=== PATIENT | male | born 1945 ===

== ENCOUNTER 2020-07-14 11:48 | Outpatient (REF) | payer MEDICARE, MEDICAID, SELFPAY | END 2020-07-14 11:49 | disposition home or self-care (01) | LOC: HO.WFDLDS 11:48 | PROVIDERS: Visit Provider Internal Medicine | DX: Z20.828 Contact with and (suspected) exposure to other viral communicable diseases (principal) | CPT/HCPCS: 87635 ==

== ENCOUNTER 2020-08-05 11:53 | Outpatient (REF) | payer MEDICARE, SELFPAY | END 2020-08-05 11:54 | disposition home or self-care (01) | LOC: HO.WFDLDS 11:53 | PROVIDERS: Visit Provider Internal Medicine | DX: Z20.828 Contact with and (suspected) exposure to other viral communicable diseases (principal) | CPT/HCPCS: U0003 ==

== ENCOUNTER 2020-09-03 13:31 | Outpatient (REF) | payer MEDICARE, SELFPAY ==
[2020-09-03 14:38] LABS: Creatinine Urine 201.47 mg/dL; Microalbum/Creatinine Ratio Ur 24.8 ug/mg cr
== END 2020-09-03 13:32 | disposition home or self-care (01) ==
LOC: HO.LNP 13:31
PROVIDERS: Visit Provider Family Medicine
DX: E11.9 Type 2 diabetes mellitus without complications (principal); I10 Essential (primary) hypertension
CPT/HCPCS: 82043

== ENCOUNTER 2020-10-23 10:30 | Outpatient (REF) | payer MEDICARE, SELFPAY | END 2020-10-23 10:31 | disposition home or self-care (01) | LOC: HO.WFDLDS 10:30 | PROVIDERS: Visit Provider Internal Medicine | DX: Z20.822 Contact with and (suspected) exposure to COVID-19 (principal) | CPT/HCPCS: 36415; C9803; U0003 ==

== ENCOUNTER 2020-11-05 11:40 | Outpatient (REF) | payer MEDICARE, SELFPAY | END 2020-11-05 11:41 | disposition home or self-care (01) | LOC: HO.WFDLDS 11:40 | PROVIDERS: PCP Family Medicine; Visit Provider Internal Medicine | DX: Z20.828 Contact with and (suspected) exposure to other viral communicable diseases (principal) | CPT/HCPCS: 36415; C9803; U0003; U0005 ==

== ENCOUNTER 2020-12-03 14:03 | Outpatient (REF) | payer MEDICARE, SELFPAY ==
[2020-12-03 15:34] LABS: Microalbum/Creatinine Ratio Ur 32.1 ug/mg cr
== END 2020-12-03 14:04 | disposition home or self-care (01) ==
LOC: HO.LNP 14:03
PROVIDERS: Visit Provider Family Medicine
DX: I10 Essential (primary) hypertension (principal); E11.9 Type 2 diabetes mellitus without complications
CPT/HCPCS: 82043

== ENCOUNTER 2020-12-09 06:29 | Day surgery (SDC) | payer MEDICARE, SELFPAY ==
[2020-10-17 13:51] VITALS: BMI 31.5
--- NOTE | 2020-10-22 10:31 | HO.ANESPROP2 ---
HPI - Anesthesia Eval Consult details Narrative: 75yo M for Upper Endoscopy and Colonoscopy [facility] Past Medical History Medical History (Updated 10/22/20 @ 10:31 by Laura Lanza) Diabetes mellitus GERD (gastroesophageal reflux disease) History of anemia Hypertension Vitamin D deficiency Surgical History Surgical History (Updated 10/17/20 @ 13:45 by Lynn Upton) Hx of left knee surgery Social History Social History (System 08/20/20 @ 08:04 by Poonam Ga) Smoking Status: Never smoker Meds Allergies Allergy/AdvReac Type Severity Reaction Status Date / Time No Known Allergies Allergy Unverified 08/20/20 08:04 Home Medications Medication Instructions Recorded Confirmed Type amlodipine 5 mg tablet 5 mg PO DAILY 09/03/20 10/17/20 History blood sugar diagnostic #10 ea 09/03/20 History blood-glucose meter #1 ea 09/03/20 History carbamide peroxide 6.5 % ear drops 0 drp OTIC (EARS) 09/03/20 History esomeprazole magnesium 40 mg 40 mg PO QAM 09/03/20 10/17/20 History capsule,delayed release ferrous sulfate 325 mg (65 mg 325 mg PO DAILY 09/03/20 10/17/20 History iron) tablet lancets 28 gauge #100 ea 09/03/20 History lisinopril 2.5 mg tablet 2.5 mg PO DAILY 09/03/20 10/17/20 History multivitamin 1 tab PO DAILY 09/03/20 10/17/20 History polyethylene glycol 3350 17 gram 17 g PO DAILY 09/03/20 History oral powder packet Exam Exam Date and Time: October 22, 2020 1031 Height,Weight and Vital Signs: Height 5 ft 3 in Weight 80.739 kg Pertinent Lab Results Pertinent Lab Results: Laboratory Tests 04/29/20 05/02/20 10:10 12:30 WBC 7.3 Hgb 13.3 L Hct 40.7 L Plt Count 308 Sodium 140 Potassium 3.9 Chloride 104 BUN 13 Creatinine 0.86 Assessment and Plan Assessment Anesthesia Assessment: Chart Reviewed
--- NOTE | 2020-12-08 09:10 | HO.ANESPROP2 ---
Documented by User: Laura Myla 12/08/20 09:10 HPI - Anesthesia Eval Consult details Narrative: 75yo M for Upper Endoscopy and Colonoscopy PMF Active Problems Active Problems: All Active Problems (Updated 12/03/20 @ 11:46 by Navid Fields MD) Essential hypertension (Acute) Diabetes type 2, controlled (Acute) Muscle strain (Acute) GERD (gastroesophageal reflux disease) (Acute) Past Medical History Medical History Diabetes mellitus GERD (gastroesophageal reflux disease) History of anemia Hypertension Vitamin D deficiency Family History Family History Father Colon cancer Mother No problems noted. Brother No problems noted. Brother No problems noted. Sister No problems noted. Sister No problems noted. Son No problems noted. Daughter No problems noted. Surgical History Surgical History Hx of colonoscopy Hx of left knee surgery Social History Social History Are you a primary critical care registered nurse to a significant other at home: No Do you presently have visiting nurse or other home services: No Smoking Status: Never smoker Advance Directives: No Advance Directives Information Provided: No Advance Directives on File: No Recently lost weight without trying: No Meds Allergies Allergy/AdvReac Type Severity Reaction Status Date / Time No Known Allergies Allergy Verified 12/09/20 06:36 Home Medications Medication Instructions Recorded Confirmed Last Taken Type amlodipine 5 mg tablet 5 mg PO DAILY 09/03/20 10/17/20 12/09/20 06:00 History blood sugar diagnostic #10 ea 09/03/20 Unknown History blood-glucose meter #1 ea 09/03/20 Unknown History carbamide peroxide 6.5 % ear drops 0 drp OTIC (EARS) 09/03/20 Unknown History ferrous sulfate 325 mg (65 mg 325 mg PO DAILY 09/03/20 10/17/20 Unknown History iron) tablet lancets 28 gauge #100 ea 09/03/20 Unknown History lisinopril 2.5 mg tablet 2.5 mg PO DAILY 09/03/20 10/17/20 Unknown History multivitamin 1 tab PO DAILY 09/03/20 10/17/20 Unknown History polyethylene glycol 3350 17 gram 17 g PO DAILY 09/03/20 Unknown History oral powder packet Exam Exam Date and Time: December 08, 2020909 Height,Weight and Vital Signs: Height 5 ft 3 in Weight 80.739 kg Assessment and Plan Assessment Anesthesia Assessment: Chart Reviewed Documented by User: Cesar Vasquez 12/09/20 07:37 PMFSH Past Medical History Medical History Diabetes mellitus GERD (gastroesophageal reflux disease) History of anemia Hypertension Vitamin D deficiency Family History Family History Father Colon cancer Mother No problems noted. Brother No problems noted. Brother No problems noted. Sister No problems noted. Sister No problems noted. Son No problems noted. Daughter No problems noted. Surgical History Surgical History Hx of colonoscopy Hx of left knee surgery Social History Social History Are you a primary critical care registered nurse to a significant other at home: No Do you presently have visiting nurse or other home services: No Smoking Status: Never smoker Advance Directives: No Advance Directives Information Provided: No Advance Directives on File: No Recently lost weight without trying: No Meds Allergies Allergy/AdvReac Type Severity Reaction Status Date / Time No Known Allergies Allergy Verified 12/09/20 06:36 Home Medications Medication Instructions Recorded Confirmed Last Taken Type amlodipine 5 mg tablet 5 mg PO DAILY 09/03/20 10/17/20 12/09/20 06:00 History blood sugar diagnostic #10 ea 09/03/20 Unknown History blood-glucose meter #1 ea 09/03/20 Unknown History carbamide peroxide 6.5 % ear drops 0 drp OTIC (EARS) 09/03/20 Unknown History ferrous sulfate 325 mg (65 mg 325 mg PO DAILY 09/03/20 10/17/20 Unknown History iron) tablet lancets 28 gauge #100 ea 09/03/20 Unknown History lisinopril 2.5 mg tablet 2.5 mg PO DAILY 09/03/20 10/17/20 Unknown History multivitamin 1 tab PO DAILY 09/03/20 10/17/20 Unknown History polyethylene glycol 3350 17 gram 17 g PO DAILY 09/03/20 Unknown History oral powder packet Exam Airway Mallampati Class: III TM Dist: >3cm Neck ROM: Full Loose/Missing/Broken Teeth: Yes (Poor dentition) Heart: rrr+[id number] Lungs: cta b/l Assessment and Plan Assessment Anesthesia Assessment: Anesthesia Plan Discussed and Chart Reviewed Final Anesthetic Review NPO: Yes ASA Class: III Final Preanesthetic Review: No Changes in Pt Med Stat, Meds/Allgs Chart Reviewed, Consent Obtained/Reviewed and Anes Risks/Benef Reviewed Patient Risk: Intermediate Procedure Risk: Low Assessment/Block/Sedation in SS: Assess/Block/Sedation-SS Anesthetic Plan Anesthetic Plan: MAC: and Regional Block Disposition: Standard PACU
[2020-12-09 06:52] VITALS: BP 155/84; PULSE 95; RESP 18; TEMP 36.9; O2SAT 98
[2020-12-09 07:04] LABS: Glucose, Whole Blood 111 mg/dL (60-115)
[2020-12-09] MEDS: Lactated Ringers 1,000 ML 100 ML IVCONT (07:10)
--- NOTE | 2020-12-09 07:51 | MHC.SHP ---
Pre-Procedural Eval Section B Chief Complaint: GERD, Hx of Colon Polyps Details of Present Illness: colon cancer screening, Hx of colon polyps, Family hx of colon cancer Chronic GERD with some break through Relevant Social History: None Present Medications: see Short Stay Collaborative assessment Medical History: Significant History (Diabetes, Mild obesity) History of Previous Operations: Relevant previous surgery/procedure and date(s) (colo 5 years ago with polypectomies) Allergies: Allergies Allergy/AdvReac Type Severity Reaction Status Date / Time No Known Allergies Allergy Verified 12/09/20 06:36 Review of Systems Sugical H&P ROS: Negative: Constitution, Cardiovascular and Respiratory and Yes, Specify: Gastrointestinal (GERD with foods, heavy, etc.) and Endocrine (diabetes) Exam Surgical H&P Exam: Normal: HEENT, Normal: Heart, Normal: Lungs, Normal: Extremities, Normal: Abdomen and Normal: Skin Plan Diagnosis/Plan: Unchanged I have reviewed the history and physical and performed a pertinent physical examination on my patient. No changes have occurred unless specified.yes
--- NOTE | 2020-12-09 09:18 | PM.OP ---
Brief Operative Note Date of Service: 12/09/20 Pre-op diagnosis: CHRONIC GERD WITH BREAKTHROUGH SYMPTOMS COLON CANCER SCREENING: PERSONAL HX OF POLYPS, FAMILY HX OF COLON CANCER Post-op diagnosis: other (HX GERD, GASTRITIS, MILD DUODENITIS; MULTIPLE POLYPS, INTERNAL HEMORRHOIDS.) Procedure: EGD WITH BX COLONOSCOPY WITH EXCISIONAL POLYPECTOMIES X3, HSP,EPI INJECTION --3 CC, X1 Implants: NONE Surgeon: Gilma Fuentes MD Anesthesia: MAC (CUFF,FINISHED GOODS PLANNER//MD LUCIE) Estimated blood loss (mL): 10 Pathology: other (GASTRIC, MID TRANSVERSE COLON, DISTAL TRANSVERSE COLON, 7OCM --HEPATIC FLEXURE) Condition: stable Disposition: PACU
[2020-12-09 09:20] VITALS: BP 93/57; PULSE 82; RESP 20; TEMP 36.5; O2SAT 98
[2020-12-09 09:35] VITALS: BP 111/72; PULSE 77; RESP 20; O2SAT 95
[2020-12-09 09:50] VITALS: BP 146/83; PULSE 96; RESP 20; TEMP 36.5; O2SAT 96
--- NOTE | 2020-12-21 14:06 | W.PM.OPN ---
Operative Note Operative Note Date of Service: 12/09/20 Narrative: Pre-op diagnosis: CHRONIC GERD WITH BREAKTHROUGH SYMPTOMS COLON CANCER SCREENING: PERSONAL HX OF POLYPS, FAMILY HX OF COLON CANCER Post-op diagnosis: other (HX GERD, GASTRITIS, MILD DUODENITIS; MULTIPLE POLYPS, INTERNAL HEMORRHOIDS.) Procedure: EGD WITH BX COLONOSCOPY WITH EXCISIONAL POLYPECTOMIES X3, HSP,EPI INJECTION --3 CC, X1 Implants: NONE Surgeon: Gilma Fuentes MD Anesthesia: MAC (CUFF,LOAD HAUL DUMP OPERATOR//MD LUCIE) FINDINGS: EGD: Videogastroscope was passed through wood treating inspector pharynx--the arytenoid cartilages were boggy with erythema down but not including the cords. Easy entry to the esophagus. The esophageal mucosa was normal. GE junction was clear and distinct. View of the Fundus did show erythema there and part of the Cardia.(I raised ? possible H. pylori,) Duodenal bulb and duodenal villi had prominent capillaries in the villi. Random Gastric biopsies were taken. Scope was removed without incident. COLO: PHILL: Prostate was mildly enlarged, no focal nodules appreciated. Adult slim scope was introduced without difficulty. It was advanced through sigmoid, descending to the distal Transverse colon. Small polyp identified in dTC was removed excisionally. (Hyperplastic) Another polyps was encountered in Transverse colon removed excisionally(TA). Scope was navigated into the ascending colon and then the cecum. PREP was okay--there was residual turbid fluid but no problems with suctioning. When withdrawing through the Hepatic Flexure a .5cm polyp was removed--Epinephering injection--3cc; then hot snare polpectomy and retrieval thru the scope. Additional polyp @ 70cm was removed excisionally with cold bx forceps. (All 3 of those polyps were tubular adenomas.) ARV was clear. Estimated blood loss (mL): 10 Pathology: other (GASTRIC bx did demonstrated H. pylori gastritis., MID TRANSVERSE COLON, DISTAL TRANSVERSE COLON, 7OCM --HEPATIC FLEXURE) Condition: stable Disposition: PACU PLAN: With 3 tubular adenomas recall will be 3 years for increased risk for colon cancer screening. The findings of the EGD will be reviewed at the time of the followup visit.
== END 2020-12-09 10:40 | disposition home or self-care (01) ==
PROVIDERS: PCP Family Medicine; Visit Provider Internal Medicine Gastroenterology
PROC: (CPT 45380; principal; 2020-12-09 07:30)
DX: Z12.11 Encounter for screening for malignant neoplasm of colon (principal); Z80.0 Family history of malignant neoplasm of digestive organs; Z86.010 Personal history of colon polyps; D12.3 Benign neoplasm of transverse colon; D12.4 Benign neoplasm of descending colon; K64.8 Other hemorrhoids; K21.9 Gastro-esophageal reflux disease without esophagitis; K29.50 Unspecified chronic gastritis without bleeding; B96.81 Helicobacter pylori [H. pylori] as the cause of diseases classified elsewhere; K29.80 Duodenitis without bleeding; I10 Essential (primary) hypertension; E11.9 Type 2 diabetes mellitus without complications; Z79.84 Long term (current) use of oral hypoglycemic drugs; Z79.899 Other long term (current) drug therapy
CPT/HCPCS: 45380; 45381; 43239; 82947; 88305; 88342; J0171

== ENCOUNTER 2020-12-12 11:21 | Outpatient (REF) | payer MEDICARE, SELFPAY ==
[2020-12-12 11:49] LABS: Glucose Urine UA NEG (NEG); Leukocyte Esterase Urine 1+ (NEG); Nitrite Urine NEG (NEG); Specific Gravity - Urine <= 1.005 (1.005-1.025); Urine Blood TRACE (NEG); Urine Ketones NEG (NEG); Urine Protein NEG (NEG-TRACE)
[2020-12-12 11:52] LABS: Appearance Urine HAZY; Color Urine YELLOW
[2020-12-12 12:02] LABS: Bacteria Urine 1+ /LPF; RBC Urine 0-2 /HPF (0)
== END 2020-12-12 11:22 | disposition home or self-care (01) ==
LOC: HO.LNP 11:21
PROVIDERS: Visit Provider Family Medicine
DX: R30.0 Dysuria (principal)
CPT/HCPCS: 81001; 87086; 87088; 87186

== ENCOUNTER → 2020-12-30 10:10 | Outpatient (BNVA) | payer MEDICARE, SELFPAY | PROVIDERS: PCP Family Medicine; Visit Provider Nurse Practitioner | DX: A04.8 Other specified bacterial intestinal infections (principal); D12.6 Benign neoplasm of colon, unspecified; K21.9 Gastro-esophageal reflux disease without esophagitis | CPT/HCPCS: Q3014 ==

== ENCOUNTER → 2021-02-24 08:46 | Outpatient (BNVA) | payer MEDICARE, SELFPAY | PROVIDERS: Visit Provider Nurse Practitioner | DX: D12.6 Benign neoplasm of colon, unspecified (principal); A04.8 Other specified bacterial intestinal infections; K21.9 Gastro-esophageal reflux disease without esophagitis | CPT/HCPCS: Q3014 ==

== ENCOUNTER 2021-06-05 08:01 | Outpatient (REF) | payer MEDICARE, SELFPAY ==
--- NOTE | ~2021-06-05 | XR_ITS ---
EXAMINATION: XR SHOULDER, LEFT CLINICAL INFORMATION: Left shoulder pain. COMPARISON: None TECHNIQUE: AP external rotation, Grashey, scapular Y, and axillary views of the left shoulder. FINDINGS: There is no evidence of acute fracture or dislocation of the left shoulder. Prominent amorphous calcification is seen about the region of the greater tuberosity/supraspinatus tendon. Glenohumeral joint appears unremarkable. There is some spurring of the acromioclavicular joint. No widening of the coracoclavicular space is noted. XR/XR shoulder LT min 2V IMPRESSION: Calcific tendinitis of the left shoulder.
[2021-06-05 09:18] LABS: Glucose Urine UA NEG (NEG); Leukocyte Esterase Urine NEG (NEG); Nitrite Urine NEG (NEG); Urine Blood NEG (NEG); Urine Ketones NEG (NEG); Urine Protein NEG (NEG-TRACE)
[2021-06-05 09:20] LABS: Appearance Urine CLEAR; Color Urine YELLOW
== END 2021-06-05 08:02 | disposition home or self-care (01) ==
LOC: HO.LAB 08:01
PROVIDERS: Absent Provider Nurse Practitioner; PCP Family Medicine; Visit Provider Family Medicine
DX: M25.512 Pain in left shoulder (principal); R30.0 Dysuria
CPT/HCPCS: 73030; 81003

== ENCOUNTER 2021-06-06 18:24 | Outpatient (REF) | payer MEDICARE, SELFPAY | END 2021-06-06 18:25 | disposition home or self-care (01) | LOC: HO.LNP 18:24 | PROVIDERS: Visit Provider Nurse Practitioner | DX: A04.8 Other specified bacterial intestinal infections (principal) | CPT/HCPCS: 87338 ==

== ENCOUNTER 2021-07-20 08:00 | Outpatient (RCR) | payer MEDICARE, SELFPAY | END 2021-10-19 10:02 | disposition home or self-care (01) | LOC: HO.PTWFD 08:00 | PROVIDERS: Visit Provider Family Medicine | DX: M79.602 Pain in left arm (principal) | CPT/HCPCS: 97110; 97140; 97162; 97535 ==

== ENCOUNTER 2021-10-05 08:18 | Outpatient (REF) | payer MEDICARE, SELFPAY ==
[2021-10-05 11:21] LABS: MANUAL DIFF FLAG NO
[2021-10-05 11:30] LABS: Basophils Percent Auto 0.3 % (0-2); Eosinophils Absolute Auto 0.2 X10*3/uL (0.0-0.4); Eosinophils Percent Auto 3.1 % (0-4); Hematocrit 39.5 % (42.0-52.0); Hemoglobin 12.7 g/dl (14.0-18.0); Imm Gran Abs Auto 0.02 X10*3/uL (0.00-0.03); Imm Gran Pct Auto 0.3 % (0.0-0.4); Lymphocytes Percent Auto 29.7 % (20-40); Mean Corpuscular HGB Conc 32.2 g/dl (31.0-36.0); Mean Corpuscular Volume 93.4 fL (80.0-98.0); Mean Platelet Volume 10.3 fL (9.4-12.4); Monocytes Absolute Auto 0.7 X10*3/uL (0.1-1.2); Monocytes Percent Auto 10.6 % (2-11); Neutrophils Absolute Auto 3.7 x10*3/uL (2.0-8.3); Platelet Count 299 X10*3/uL (160-400); Red Blood Count 4.23 X10*6/uL (4.60-5.80); Red Cell Distribution Width 12.6 % (11.0-16.0); White Blood Count 6.7 X10*3/uL (4.8-10.8)
[2021-10-05 11:37] LABS: Estimated Average Glucose 166 mg/dL; Hemoglobin A1c % 7.4 %
[2021-10-05 11:48] LABS: Anion Gap 11 (12-20); Blood Urea Nitrogen 21 mg/dL (9-16); Calcium 9.5 mg/dL (8.4-10.2); Carbon Dioxide 28 mmol/L (22-29); Chloride 106 mmol/L (96-108); Estimated Glomerular Filt Rate > 60; Glucose Random 132 mg/dL (60-115); Sodium 141 mmol/L (135-145)
== END 2021-10-05 08:19 | disposition home or self-care (01) ==
LOC: HO.WFDLDS 08:18
PROVIDERS: Visit Provider Family Medicine
DX: Z00.00 Encounter for general adult medical examination without abnormal findings (principal); E11.9 Type 2 diabetes mellitus without complications; I10 Essential (primary) hypertension
CPT/HCPCS: 36415; 80048; 83036; 85025

== ENCOUNTER → 2021-11-24 08:09 | Outpatient (BNVA) | payer MEDICARE, SELFPAY | PROVIDERS: PCP Family Medicine; Referring Provider Family Medicine; Visit Provider Nurse Practitioner Family | DX: G47.9 Sleep disorder, unspecified (principal); G47.19 Other hypersomnia; F09 Unspecified mental disorder due to known physiological condition | CPT/HCPCS: 99202 ==

== ENCOUNTER → 2022-01-07 20:38 | Outpatient (REF) | payer OTHER, SELFPAY | LOC: HO.SL 20:38 | PROVIDERS: PCP Family Medicine; Visit Provider Nurse Practitioner Family | DX: Z13.89 Encounter for screening for other disorder (principal) ==

== ENCOUNTER 2022-02-04 10:50 | Outpatient (REF) | payer OTHER, SELFPAY ==
--- NOTE | ~2022-02-04 | XR_ITS ---
EXAMINATION: XR HIP, RIGHT CLINICAL INFORMATION: Right hip pain. COMPARISON: None TECHNIQUE: Two views of the right hip. FINDINGS: Mild right hip degenerative joint changes are seen. There is no acute fracture or dislocation. The right hemipelvis is intact. The soft tissues are unremarkable. XR/XR hip RT min 2V IMPRESSION: Mild right degenerative joint changes most consistent with osteoarthritis. No acute fracture.
== END 2022-02-04 10:51 | disposition home or self-care (01) ==
LOC: HO.XRAY 10:50
PROVIDERS: PCP Family Medicine; Visit Provider Family Medicine
DX: M25.551 Pain in right hip (principal)
CPT/HCPCS: 73502

== ENCOUNTER → 2022-04-04 19:14 | Outpatient (REF) | payer OTHER, SELFPAY | LOC: HO.SL 19:14 | PROVIDERS: Visit Provider Nurse Practitioner Family | DX: G47.10 Hypersomnia, unspecified (principal); G47.9 Sleep disorder, unspecified; R06.83 Snoring | CPT/HCPCS: 95810 ==

== ENCOUNTER 2022-05-05 09:40 | Outpatient (REF) | payer OTHER, SELFPAY ==
[2022-05-05 11:31] LABS: Appearance Urine CLEAR; Color Urine YELLOW; Glucose Urine UA NEG (NEG); Leukocyte Esterase Urine NEG (NEG); Nitrite Urine NEG (NEG); PH 5.5 (5.0-8.0); Urine Blood NEG (NEG); Urine Ketones NEG (NEG); Urine Protein TRACE MG/DL (NEG-TRACE)
[2022-05-05 14:16] LABS: Prostate Specific Antigen Scr 0.87 ng/mL (<0.05-4.0)
[2022-05-05 14:21] LABS: Alanine Aminotransferase 19 U/L (0-40); Albumin Level 4.5 g/dL (3.5-5.0); Alkaline Phosphatase 71 U/L (39-117); Anion Gap 14 (12-20); Aspartate Amino Transferase 13 U/L (5-37); Bilirubin Total 0.5 mg/dL (0.0-1.0); Blood Urea Nitrogen 15 mg/dL (9-16); Calcium 9.2 mg/dL (8.4-10.2); Carbon Dioxide 27 mmol/L (22-29); Chloride 105 mmol/L (96-108); Cholesterol 142 mg/dL; Estimated Glomerular Filt Rate > 60; Glucose Fasting 132 mg/dL (60-99); HDL Cholesterol 37 mg/dL; LDL Cholesterol Calculated 82 mg/dl; Potassium 3.9 mmol/L (3.3-5.1); Sodium 142 mmol/L (135-145); Total Protein 7.3 g/dL (6.5-8.0); Triglycerides 118 mg/dL
[2022-05-05 14:22] LABS: Creatinine Urine 150.82 mg/dL; Microalbum/Creatinine Ratio Ur 44.4 ug/mg cr
== END 2022-05-05 09:41 | disposition home or self-care (01) ==
LOC: HO.WFDLDS 09:40
PROVIDERS: Visit Provider Family Medicine
DX: Z00.00 Encounter for general adult medical examination without abnormal findings (principal); Z12.5 Encounter for screening for malignant neoplasm of prostate; I10 Essential (primary) hypertension
CPT/HCPCS: 36415; 80053; 80061; 81003; 82043; 84153; 84443

== ENCOUNTER → 2022-06-21 18:47 | Outpatient (REF) | payer OTHER, SELFPAY | LOC: HO.SL 18:47 | PROVIDERS: PCP Family Medicine; Visit Provider Nurse Practitioner Family | DX: Z13.89 Encounter for screening for other disorder (principal) ==

== ENCOUNTER → 2022-06-23 14:14 | Outpatient (BNVA) | payer OTHER, SELFPAY | PROVIDERS: PCP Family Medicine; Visit Provider Nurse Practitioner | DX: Z01.818 Encounter for other preprocedural examination (principal) | CPT/HCPCS: 99212 ==

== ENCOUNTER 2022-07-06 13:00 | Outpatient (RCR) | payer OTHER, SELFPAY ==
[2022-06-10 11:24] VITALS: BP 142/78; PULSE 60; O2SAT 96
== END 2022-08-02 12:40 | disposition home or self-care (01) ==
LOC: HO.PTWFD 13:00
PROVIDERS: Visit Provider Family Medicine
DX: R29.898 Other symptoms and signs involving the musculoskeletal system (principal)
CPT/HCPCS: 97110; 97162; 97535

== ENCOUNTER → 2022-07-27 19:22 | Outpatient (REF) | payer OTHER, SELFPAY | LOC: HO.SL 19:22 | PROVIDERS: PCP Family Medicine; Visit Provider Nurse Practitioner Family | DX: G47.9 Sleep disorder, unspecified (principal) | CPT/HCPCS: 95810 ==

== ENCOUNTER 2022-11-24 08:06 | Day surgery (SDC) | payer OTHER, SELFPAY ==
[2022-11-18 14:33] VITALS: BMI 29.7
--- NOTE | 2022-11-24 08:51 | P.CONAN_ITS ---
HPI - Anesthesia Eval Consult details Narrative: 77 yo male patient for Colonoscopy PMF Active Problems Active Problems: All Active Problems (Updated 10/25/22 @ 09:14 by Tong Bolton) Swollen eye (Acute) Ankle fracture, left (Acute) Altered mental status (Acute) Pre-op examination (Acute) Lower extremity weakness (Acute) Tremor (Acute) Screening for prostate cancer (Acute) Screening for colon cancer (Acute) Adult general medical exam (Acute) Right hip pain (Acute) Cognitive dysfunction (Acute) Excessive daytime sleepiness (Acute) Sleep disorder, unspecified (Acute) Sleep apnea (Acute)- never tested Anxiety (Acute) Left arm pain (Acute) Fatigue (Acute) Upper back pain (Acute) H. pylori infection (Acute) Tubular adenoma of colon (Acute) Dysuria (Acute) Essential hypertension (Acute) Diabetes type 2, controlled (Acute) Muscle strain (Acute) GERD (gastroesophageal reflux disease) (Acute) Past Medical History Medical History Diabetes mellitus GERD (gastroesophageal reflux disease) History of anemia Hypertension Vitamin D deficiency Family History Family History Father Colon cancer Brother No problems noted. Brother No problems noted. Sister No problems noted. Sister Liver cancer Son No problems noted. Daughter No problems noted. Family history of problems with anesthesia: No Surgical History Surgical History Hx of colonoscopy Hx of endoscopy Hx of left knee surgery History of Problems with Anesthesia: No Social History Social History Household Members: Spouse Housing: Apartment Are you a primary managed care manager to a significant other at home: No Do you presently have visiting nurse or other home services: No Alcohol intake: never Patient Tobacco Use Status: Never used Tobacco e-Cigarette/Vaping Use: Never Used Second Hand Smoke Exposure: No Use of substances other than those prescribed or required for medical reasons: No Are you DNR?: No Advance Directives: No Advance Directives Information Provided: Yes service: No Current occupational status: retired Current occupational exposures/hazards: No Cognitive needs: No Hearing needs: No Vision needs: No Meds Allergies Allergy/AdvReac Type Severity Reaction Status Date / Time narcotics Allergy Severe memory loss Uncoded 09/06/22 16:03 Home Medications Medication Instructions Recorded Confirmed Last Taken Type blood sugar diagnostic #10 ea 09/03/20 08/04/22 Unknown History blood-glucose meter #1 ea 09/03/20 08/04/22 Unknown History ferrous sulfate 325 mg (65 mg 325 mg PO DAILY 09/03/20 08/04/22 Unknown History iron) tablet lancets 28 gauge #100 ea 09/03/20 08/04/22 Unknown History cyclobenzaprine 10 mg tablet 10 mg PO BID PRN muscle spasm 06/23/22 08/04/22 Unknown History Exam Exam Date and Time: November 24, 2022 0851 Height,Weight and Vital Signs: Height 5 ft 2 in Weight 73.709 kg Vital Signs Temp Pulse Resp BP Pulse Ox O2 Del Method 11/24/22 09:05 98.3 F 84 18 152/78 H 97 Room Air Pertinent Lab Results Pertinent Lab Results: POC 101mg/dL Airway Mallampati Class: II TM Dist: >3cm Neck ROM: Full Loose/Missing/Broken Teeth: Yes (Many missing. Denies broken or loose teeth) Heart: RRR + ? systolic murmur Lungs: CTAB Assessment and Plan Assessment Anesthesia Assessment: Anesthesia Plan Discussed and Chart Reviewed Final Anesthetic Review Family History of Problems with Anesthesia: No History of Problems with Anesthesia: No NPO: Yes ASA Class: III Final Preanesthetic Review: No Changes in Pt Med Stat, Meds/Allgs Chart Reviewed, Consent Obtained/Reviewed and Anes Risks/Benef Reviewed Patient Risk: Intermediate Procedure Risk: Low Assessment/Block/Sedation in SS: Assess/Block/Sedation-SS Anesthetic Plan Anesthetic Plan: MAC: Disposition: Standard PACU
[2022-11-24 09:05] VITALS: BP 152/78; PULSE 84; RESP 18; TEMP 36.8; O2SAT 97
--- NOTE | 2022-11-24 09:47 | P.HPSUR_ITS ---
Pre-Procedural Eval Section A Date of Service: 11/24/22 Section B Chief Complaint: Encounter for screening for malignant neoplasm of Details of Present Illness: FH of cRC --father Relevant Family History (Specify if Yes): Yes Relevant Social History: None Present Medications: see Short Stay Collaborative assessment Medical History: Significant History (Diabetes mellitus GERD (gastroesophageal reflux disease) History of anemia Hypertension Vitamin D deficiency) History of Previous Operations: Relevant previous surgery/procedure and date(s) (Hx of colonoscopy Hx of endoscopy Hx of left knee surgery) Allergies: Allergies Allergy/AdvReac Type Severity Reaction Status Date / Time narcotics Allergy Severe memory loss Uncoded 09/06/22 16:03 Review of Systems Sugical H&P ROS: Negative: Constitution, Cardiovascular, Respiratory, Neuro logical, Psychiatric, Hem-Onc, Allergic/Immunologic, Gastrointestinal, Genitourinary, Musculoskeletal, Integumentary, Endocrine and Eyes/Ears/Nose/Throat Exam Surgical H&P Exam: Normal: HEENT, Normal: Heart, Normal: Lungs, Normal: Extremities, Normal: Abdomen, Normal: Skin and Normal: Neurological Plan Diagnosis/Plan: Unchanged I have reviewed the history and physical and performed a pertinent physical examination on my patient. No changes have occurred unless specified. Time Spent With Patient Time: Total time managing care of this patient today ____ minutes.
--- NOTE | 2022-11-24 09:49 | P.OP_ITS ---
Operative Note Operative Note Date of Service: 11/24/22 Narrative: Operative Information Procedure Description: Colonoscopy Indication: screening, hx of polyps Anesthesia: MAC COLONOSCOPY Instrument: Olympus variable stiffness Adult scope 190L Colonoscopy Monitoring: Vital signs and clinical assessment, continuous EKG monitoring, Pulse oximetry, Carbon Dioxide monitoring and blood pressure monitoring were done throughout the procedure. Colon withdrawal time was 7 minutes. Procedure: The patient was placed in the left lateral decubitis position and pre-procedure medications were administered. After a digital rectal examination of the ano-rectum, the video colonoscope was inserted into the rectum and advanced through the colon to the cecum/TI. The colonoscope was slowly withdrawn in a retrograde panoramic fashion and the colon mucosa was carefully examined including a retroflexed view of the rectum. Findings and interventions are described below. Procedure Difficulty: moderate due to looping Findings: Terminal Ileum- superficially intubated and normal melanosis coli noted, colon also redundant Cecum:normal Ascending Colon: normal Transverse Colon -normal Descending Colon: 10 mm sessile polyp removed with cold snare Sigmoid Colon: mild diverticulosis Rectum: Retroflexion with medium sized internal hemorrhoids, grade I Anorectum - normal Colon preparation: [place] Bowel Preparation Scale Right colon; 1-2 Transverse colon: 2 Left colon; 1-2 (0 = Unprepared colon segment with mucosa not seen due to solid stool that cannot be cleared. 1 = Portion of mucosa of the colon segment seen, but other areas of the colon segment not well seen due to staining, residual stool and/or opaque liquid. 2 = Minor amount of residual staining, small fragments of stool and/or opaque liquid, but mucosa of colon segment seen well. 3 = Entire mucosa of colon segment seen well with no residual staining, small fragments of stool or opaque liquid) Impression and Post Procedure Diagnosis: polyp internal hemorrhoids diverticular disease melanosis coli redundant colon Plan: High fiber diet leaflet Avoid straining at stool, epsom salts and sitz bath, anusol supps or cream Repeat Colonoscopy in 1-2 years due to fair prep or earlier if clinically indicated Above findings were reviewed with the patient and relevant handouts were provided if indicated.
[2022-11-24 10:00] VITALS: BP 128/78; PULSE 93; RESP 16; TEMP 36.4; O2SAT 98
[2022-11-24 10:21] LABS: Glucose, Whole Blood 101 mg/dL (60-115)
[2022-11-24 10:36] VITALS: BP 95/57; PULSE 58; RESP 18; TEMP 36.9; O2SAT 100
[2022-11-24 10:51] VITALS: BP 118/68; PULSE 62; RESP 18; TEMP 36.8; O2SAT 97
[2022-11-24 11:06] VITALS: BP 152/86; PULSE 76; RESP 18; TEMP 37.1; O2SAT 97
== END 2022-11-24 11:59 | disposition home or self-care (01) ==
PROVIDERS: PCP Family Medicine; Visit Provider Internal Medicine Gastroenterology
PROC: 0DJD8ZZ Inspection of Lower Intestinal Tract, Via Natural or Artificial Opening Endoscopic (ICD-10-PCS; CPT 45378; principal; 2022-11-24 09:20)
DX: Z12.11 Encounter for screening for malignant neoplasm of colon (principal); Z86.010 Personal history of colon polyps; Z80.0 Family history of malignant neoplasm of digestive organs; K63.5 Polyp of colon; K63.89 Other specified diseases of intestine; K57.30 Diverticulosis of large intestine without perforation or abscess without bleeding; K64.0 First degree hemorrhoids; D17.5 Benign lipomatous neoplasm of intra-abdominal organs; Q43.8 Other specified congenital malformations of intestine; K21.9 Gastro-esophageal reflux disease without esophagitis; I10 Essential (primary) hypertension; E55.9 Vitamin D deficiency, unspecified; E11.9 Type 2 diabetes mellitus without complications; G47.33 Obstructive sleep apnea (adult) (pediatric); Z79.899 Other long term (current) drug therapy; Z88.8 Allergy status to other drugs, medicaments and biological substances
CPT/HCPCS: 45385; 82947; 88305

== ENCOUNTER → 2022-12-29 08:39 | Outpatient (BNVA) | payer OTHER, SELFPAY | PROVIDERS: PCP Family Medicine; Referring Provider Family Medicine; Visit Provider Nurse Practitioner | DX: D12.6 Benign neoplasm of colon, unspecified (principal) | CPT/HCPCS: 99212 ==

== ENCOUNTER 2023-04-15 09:36 | Outpatient (AMB) | payer OTHER, SELFPAY ==
[2023-04-15 09:40] VITALS: BP 116/64; PULSE 84; RESP 12; TEMP 36.7; O2SAT 98; BMI 30.8
--- NOTE | 2023-04-15 09:40 | A.OFFPC_ITS ---
Vital Signs 04/15/23 09:40 Height 5 ft 2 in Weight 168 lb 8 oz BMI 30.8 BP 116/64 Blood Pressure Location Rt brachial Position Sitting Respiration 12 Pulse 84 Pulse Source Pulse Oximeter Temp 98.1 F Temp Source Temporal Artery Scan Pulse Oximetry (%) 98 Oxygen Delivery Method Room Air Intake Visit Reasons: f/u diabetes and hypertension Online Content Coordinator Required: Yes Online Content Coordinator Name: Imelda () Accompanied by: Self / Same As Patient Allergies Benzodiazepines Allergy (Mild, Verified 04/15/23 09:46) Unknown narcotics Allergy (Severe, Uncoded 12/29/22 08:48) memory loss Tobacco use date assessed: 08/04/22 Fall risk assessment: No Falls in past year Last assessed Fall Risk: 04/15/23 Dental Screening Dental Screen Date: 04/15/23 Did you have a dental visit in the last 12 months?: Yes Did you have a dental problem in the last 6 months where you did not have access to dental care?: No Was dental information given to patient?: Patient has dentist HPI f/u diabetes and hypertension HPI Details 78 y/o male presents to f/u diabetes and hypertension. Last A1c 12/07/22 was 6.1%. A1c today 04/15/23 is 6.8%. He is on metformin 850 mg t.i.d. He had his diabetic eye exam in March. Blood pressure today is 116/64. He is on amlodipine 5mg, lisinopril 2.5mg daily. Pt has sleep apnea and they report he has not used the machine yet. HPI Comments History of Present Illness Details Documentation assistance for Navid Fields MD, was provided by Tong Bolton,? Director Of [employer] on 04/15/2023 10:50 AM EST. Santamaria, Dr. Fields, have read, observed, and verified documentation.? [facility] [place] Medical History Diabetes mellitus GERD (gastroesophageal reflux disease) History of anemia Hypertension Vitamin D deficiency Surgical History Hx of colonoscopy Hx of endoscopy Hx of left knee surgery Family History Father Colon cancer Brother No problems noted. Brother No problems noted. Sister No problems noted. Sister Liver cancer Son No problems noted. Daughter No problems noted. Social History Household Members: Spouse Housing: Apartment Are you a primary customer care assistant to a significant other at home: No Do you presently have visiting nurse or other home services: No Alcohol intake: never Patient Tobacco Use Status: Never used Tobacco e-Cigarette/Vaping Use: Never Used Second Hand Smoke Exposure: No service: No Current occupational status: retired Current occupational exposures/hazards: No Cognitive needs: No Hearing needs: No Vision needs: No Questionnaire Thrive Questionnaire Date Thrive assessed: 12/07/22 SERGEY-7 AMB Questionnaire SERGEY-7 Date SERGEY - 7 assessed: 12/07/22 Source: Developed by Drs. Dionicio Jiang, Pat Whalen, Ashish Eisenberg and colleagues, with an educational duncan from [employer]. Physical exam (Primary Care) Vital Signs: Last Vital Signs Temp 98.1 F 04/15/23 09:40 Pulse 84 04/15/23 09:40 Resp 12 04/15/23 09:40 BP 116/64 04/15/23 09:40 Pulse Ox 98 04/15/23 09:40 Oxygen Delivery Method Room Air 04/15/23 09:40 BMI result Body Mass Index 30.8 Tobacco/Smoking Status: Tobacco use Status Tobacco use date assessed 08/04/22 04/15/23 09:49 Patient Tobacco Use Status Never used Tobacco 04/15/23 09:49 e-Cigarette/Vaping Use Never Used 04/15/23 09:49 Thrive Assessment: Date of Thrive Assessment Date Thrive assessed 12/07/22 04/15/23 09:49 Results AMB Hemoglobin A1c AMB Hemoglobin A1c 6.8 % Last Edit by Mily Yi CMA on 04/15/23 10:11 Results Reviewed Results Reviewed: Laboratory Last Values Hgb A1c (Clinic) 6.8 % (4.0-6.0) H 04/15/23 10:10 Assessment and Plan Assessment & Plan (1) Essential hypertension: Code(s): I10 - Essential (primary) hypertension Plan: Blood pressure is controlled. Goal is less than 140/90 Continue current medication regimen (2) Diabetes type 2, controlled: Code(s): E11.9 - Type 2 diabetes mellitus without complications Plan: A1c increased from 6.1% to 6.8%. Significant increase but still at goal of less than 7% Continue current medication regimen Encouraged diet lower in sugars and starches Encouraged exercise Recent diabetic eye exam showed some retinopathy. Controlling blood pressure and blood sugar. (3) Sleep apnea: Code(s): G47.30 - Sleep apnea, unspecified Plan: Patient's daughter is going to be picking up his CPAP machine Encouraged consistent use (4) Altered mental status: Code(s): R41.82 - Altered mental status, unspecified Plan: Still has not had his neuropsych evaluation scheduled I have again asked the office to work on the status of this referral Orders: Orders AMB Hemoglobin A1c Today Z13.9 - Encounter for screening, unspecified Coding Level of Care Code Est Pt Level 4 (82523) Diagnoses Essential hypertension I10 Diabetes type 2, controlled E11.9 Sleep apnea G47.30 Altered mental status R41.82
== END 2023-04-15 11:15 | disposition home or self-care (01) ==
PROVIDERS: PCP Family Medicine; Visit Provider Family Medicine
DX: I10 Essential (primary) hypertension (principal); E11.9 Type 2 diabetes mellitus without complications; G47.30 Sleep apnea, unspecified; R41.82 Altered mental status, unspecified; Z13.9 Encounter for screening, unspecified
CPT/HCPCS: 83036; 99214

== ENCOUNTER → 2023-05-18 13:03 | Outpatient (REF) | payer OTHER, SELFPAY | LOC: HO.SL 13:03 | PROVIDERS: PCP Family Medicine; Visit Provider Nurse Practitioner Family | DX: G47.30 Sleep apnea, unspecified (principal); G47.9 Sleep disorder, unspecified; G47.19 Other hypersomnia | CPT/HCPCS: 95806 ==

== ENCOUNTER → 2023-05-18 13:11 | Outpatient (BNV) | payer OTHER, SELFPAY | PROVIDERS: PCP Family Medicine; Visit Provider Psychiatry & Neurology Neurology | DX: R06.83 Snoring (principal) | CPT/HCPCS: 95806 ==

== ENCOUNTER 2023-08-05 08:24 | Outpatient (AMB) | payer OTHER, SELFPAY ==
--- NOTE | 2023-08-05 08:45 | A.OFFPC_ITS ---
Vital Signs 08/05/23 08:46 Height 5 ft 2 in Weight 169 lb 8 oz BMI 31.0 BP 154/72 H Blood Pressure Location Lt brachial Position Sitting Respiration 13 Pulse 66 Pulse Source Pulse Oximeter Temp 98.7 F Temp Source Oral Pulse Oximetry (%) 99 Oxygen Delivery Method Room Air Intake Visit Reasons: f/u diabetes and hypertension Intake Note: Patient is here to follow up for diabetes and hypertension. Patient is accompanied by his spouse and daughter. Patient's daughter is requesting a referral for PT, OT and Speech Therapy. Patient's daughter reports he has been having pain in his neck. Patient's daughter would like to know the results of the patient's sleep study. Hr Generalist Required: Yes Hr Generalist Name: Virgen- Patient's daughter Accompanied by: Spouse Allergies Benzodiazepines Allergy (Mild, Verified 08/05/23 08:52) Unknown narcotics Allergy (Severe, Uncoded 08/05/23 08:52) memory loss Tobacco use date assessed: 08/05/23 Fall risk assessment: No Falls in past year Last assessed Fall Risk: 08/05/23 Dental Screening Dental Screen Date: 08/05/23 Did you have a dental visit in the last 12 months?: Yes Did you have a dental problem in the last 6 months where you did not have access to dental care?: No Was dental information given to patient?: Patient has dentist HPI f/u diabetes and hypertension HPI Details 78 y/o male presents to f/u diabetes and hypertension. Diabetic eye exam 06/02/23. No evidence of diabetic retinopathy. Last A1c 04/15/23 6.8%. A1c today 08/05/23 is 6.8%. He is on metformin 850mg t.i.d. Blood pressure today is 154/72. He is on lisinopril 2.5mg and amlodipine 5mg daily. Pt reports neck pain today. They report he is on a waiting list for neuropsych. COUNTS INCLUDE 234 BEDS AT THE [facility] Medical History History of anemia GERD (gastroesophageal reflux disease) Vitamin D deficiency Hypertension Diabetes mellitus Surgical History Hx of endoscopy Hx of colonoscopy Hx of left knee surgery Family History Father Colon cancer Brother No problems noted. Brother No problems noted. Sister No problems noted. Sister Liver cancer Son No problems noted. Daughter No problems noted. Social History Household Members: Spouse Housing: Apartment Are you a primary cattle care worker to a significant other at home: No Do you presently have visiting nurse or other home services: No Alcohol intake: never Patient Tobacco Use Status: Never used Tobacco e-Cigarette/Vaping Use: Never Used Second Hand Smoke Exposure: No service: No Current occupational status: retired Current occupational exposures/hazards: No Cognitive needs: No Hearing needs: No Vision needs: No Questionnaire Thrive Questionnaire Date Thrive assessed: 12/07/22 SERGEY-7 AMB Questionnaire SERGEY-7 Date SERGEY - 7 assessed: 12/07/22 Source: Developed by Drs. Dionicio Jiang, Pat Whalen, Ashish Eisenberg and colleagues, with an educational duncan from [employer]. Review of Systems Const Denies chills, Denies fatigue, Denies fever(s), Denies headache(s) and Denies weakness ENT Denies dizziness and Denies headache(s) Card Denies chest pain, Denies lightheadedness, Denies dyspnea and Denies other (Palpitations) Resp Denies cough, Denies dyspnea, Denies wheezing and Denies other ( shortness of breath) Musc Denies numbness and Denies tingling Neuro Denies dizziness, Denies headache(s), Denies numbness, Denies tingling, Denies paresthesias and Denies weakness Psych Denies anxiety and Denies depression Endo Denies fatigue Aller/Immun Denies wheezing Physical exam (Primary Care) Vital Signs: Last Vital Signs Temp 98.7 F 08/05/23 08:46 Pulse 66 08/05/23 08:46 Resp 13 08/05/23 08:46 BP 154/72 H 08/05/23 08:46 Pulse Ox 99 08/05/23 08:46 Oxygen Delivery Method Room Air 08/05/23 08:46 BMI result Body Mass Index 31.0 Tobacco/Smoking Status: Tobacco use Status Tobacco use date assessed 08/05/23 08/05/23 08:53 Patient Tobacco Use Status Never used Tobacco 11/03/23 08:49 e-Cigarette/Vaping Use Never Used 08/05/23 08:49 Thrive Assessment: Date of Thrive Assessment Date Thrive assessed 12/07/22 08/05/23 08:49 Const General: no acute distress and well developed Nutritional Appearance: well nourished Orientation/consciousness: patient oriented x3 HENMT Head: Yes normocephalic and Yes atraumatic Eyes General: appearance normal, both eyes and all related structures Pupils: Equal, round and reactive pupils present EOM: EOMs intact bilaterally Resp Effort & Inspection: normal respiratory effort Auscultation: clear to auscultation bilaterally Cardio Rate: regular rate Rhythm: regular rhythm Heart sounds: S1 normal heart sound present, S2 normal heart sound present, no gallops, no murmurs and no rubs Neuro General: patient oriented x3 and gait normal Cranial nerves: Yes Equal, round and reactive pupils present Psych Affect: normal affect Results AMB Hemoglobin A1c AMB Hemoglobin A1c 6.8 % Last Edit by Jaja Murray CMA on 08/05/23 09:07 Results Reviewed Results Reviewed: Laboratory Last Values Hgb A1c (Clinic) 6.8 % (4.0-6.0) H 08/05/23 09:01 Assessment and Plan Assessment & Plan (1) Diabetes type 2, controlled: Code(s): E11.9 - Type 2 diabetes mellitus without complications Plan: A1c?6.8%.??Good?control.??Goal?is?less?than?7.0% He?has?been?taking?metformin?850?mg?b.i.d.?and?can?continue?this. Encouraged?diabetic?diet?and?exercise Recent?eye?exam?with?no?diabetic?retinopathy.??Up-to-date. (2) Essential hypertension: Code(s): I10 - Essential (primary) hypertension Plan: Blood?pressures?fluctuate?and?sometimes?rather?high.??Goal?is?less?than?140/90 Will?increase?lisinopril?from?2.5?mg?daily?to?5.0?mg?daily Encouraged?exercise?and?salt/sodium?avoiding (3) Sleep apnea: Code(s): G47.30 - Sleep apnea, unspecified Plan: Reviewed?sleep?study?with?patient. At?home?sleep?study?seems?to?be?negative. Encouraged?them?to?follow-up?with?sleep?medicine?to?review?further. Encouraged?patient?to?sleep?on?his?side (4) Altered mental status: Code(s): R41.82 - Altered mental status, unspecified Plan: Patient's?family?says?that?neuropsych?has?said?that?he?is?on?a?waiting?list?and? should?be?getting?an?appointment?soon Orders: Orders AMB Hemoglobin A1c Today Z13.9 - Encounter for screening, unspecified Comprehensive Met. Panel Today E11.9 - Type 2 diabetes mellitus without complications Microalbumin, Random (w Creat) Today E11.9 - Type 2 diabetes mellitus without complications, I10 - Essential (primary) hypertension Medications: Changed From metformin 850 mg PO TID 90 tabs 0RF E11.9 - Type 2 diabetes mellitus without complications To metformin 850 mg PO BID 90 days 180 tabs 3RF E11.9 - Type 2 diabetes mellitus without complications From lisinopril 2.5 mg PO DAILY 30 tabs 0RF To lisinopril 5 mg PO DAILY 90 tabs 2RF 90 days Coding Level of Care Code Est Pt Level 4 (85725) Diagnoses Diabetes type 2, controlled E11.9 Essential hypertension I10 Sleep apnea G47.30 Altered mental status R41.82
[2023-08-05 08:46] VITALS: BP 154/72; PULSE 66; RESP 13; TEMP 37.1; O2SAT 99; BMI 31.0
== END 2023-08-05 09:59 | disposition home or self-care (01) ==
PROVIDERS: PCP Family Medicine; Visit Provider Family Medicine
DX: E11.9 Type 2 diabetes mellitus without complications (principal); I10 Essential (primary) hypertension; G47.30 Sleep apnea, unspecified; R41.82 Altered mental status, unspecified; Z13.9 Encounter for screening, unspecified
CPT/HCPCS: 83036; 99214

== ENCOUNTER 2023-08-05 09:40 | Outpatient (REF) | payer OTHER, SELFPAY ==
[2023-08-05 12:38] LABS: Creatinine Urine 178.02 mg/dL; Microalbum/Creatinine Ratio Ur 69.6 ug/mg cr (<30)
[2023-08-05 12:52] LABS: Alanine Aminotransferase 17 U/L (0-40); Albumin Level 4.1 g/dL (3.5-5.0); Alkaline Phosphatase 74 U/L (39-117); Anion Gap 13 (12-20); Aspartate Amino Transferase 15 U/L (5-37); Bilirubin Total 0.3 mg/dL (0.0-1.0); Blood Urea Nitrogen 13 mg/dL (9-16); Calcium 8.9 mg/dL (8.4-10.2); Carbon Dioxide 25 mmol/L (22-29); Chloride 106 mmol/L (96-108); Estimated Glomerular Filt Rate > 60; Glucose Random 120 mg/dL (60-115); Potassium 3.8 mmol/L (3.3-5.1); Sodium 140 mmol/L (135-145); Total Protein 7.2 g/dL (6.5-8.0)
== END 2023-08-05 09:41 | disposition home or self-care (01) ==
LOC: HO.WFDLDS 09:40
PROVIDERS: Visit Provider Family Medicine
DX: E11.9 Type 2 diabetes mellitus without complications (principal); I10 Essential (primary) hypertension
CPT/HCPCS: 36415; 80053; 82043; 82570

== ENCOUNTER 2023-11-11 11:05 | Outpatient (AMB) | payer OTHER, SELFPAY ==
[2023-11-11 11:18] VITALS: BP 161/78; PULSE 72; O2SAT 99; BMI 30.7
--- NOTE | 2023-11-11 11:18 | A.OFFPC_ITS ---
Vital Signs 11/11/23 11:18 Height 5 ft 2 in Weight 168 lb BMI 30.7 BP 161/78 H Blood Pressure Location Lt brachial Position Sitting Pulse 72 Pulse Oximetry (%) 99 Oxygen Delivery Method Room Air Intake Visit Reasons: CPE Intake Note: Patient is here for his physical today. Allergies Benzodiazepines Allergy (Mild, Verified 11/11/23 11:19) Unknown narcotics Allergy (Severe, Uncoded 11/11/23 11:19) memory loss Medication List - Last Reconciled 11/11/23 by Navid Fields MD amlodipine 5 mg PO DAILY atorvastatin 10 mg PO DAILY 90 days blood sugar diagnostic (FreeStyle Lite Strips) DX: E11.9, test blood sugar 3 times a day, 90 days blood-glucose meter (FreeStyle Lite Meter kit) DX: E11.9, test blood sugar 3 times a day, duration 999 days cholecalciferol (vitamin D3) (Vitamin D3) 25 mcg PO DAILY 90 days cyclobenzaprine 10 mg PO BID PRN ferrous sulfate 325 mg PO DAILY lancets (FreeStyle Lancets) As directed lisinopril 5 mg PO DAILY 90 days metformin 850 mg PO BID 90 days multivitamin with folic acid 400 mcg (Daily-Joselyn (with folic acid)) 1 tab PO DAILY naproxen 500 mg PO BID PRN 14 days omeprazole 40 mg PO DAILY 90 days sertraline 50 mg PO DAILY 90 days Tobacco use date assessed: 11/11/23 Dental Screening Dental Screen Date: 11/11/23 Did you have a dental visit in the last 12 months?: Yes Did you have a dental problem in the last 6 months where you did not have access to dental care?: No Was dental information given to patient?: Patient has dentist HPI CPE HPI Details 78 y/o male presents for a CPE with f/u labs and health maintenance. No recent CPE-labs to review. Blood pressure today 161/78. He is on lisinopril 5mg, amlodipine 5mg daily. A1c today 11/11/23 is 7.0%. He is on metformin 850mg b.i.d. [facility] Medical History History of anemia GERD (gastroesophageal reflux disease) Vitamin D deficiency Hypertension Diabetes mellitus Surgical History Hx of endoscopy Hx of colonoscopy Hx of left knee surgery Family History Father Colon cancer Brother No problems noted. Brother No problems noted. Sister No problems noted. Sister Liver cancer Son No problems noted. Daughter No problems noted. Social History Household Members: Spouse Housing: Apartment Are you a primary child care specialist to a significant other at home: No Do you presently have visiting nurse or other home services: No Alcohol intake: never Patient Tobacco Use Status: Never used Tobacco e-Cigarette/Vaping Use: Never Used Second Hand Smoke Exposure: No service: No Current occupational status: retired Current occupational exposures/hazards: No Cognitive needs: No Hearing needs: No Vision needs: No Questionnaire PHQ-9 Over the last 2 weeks, how often have you been bothered by any of the following problems? 1. Little interest or pleasure in doing things: several days 2. Feeling down, depressed, or hopeless: more than half the days 3. Trouble falling or staying asleep, or sleeping too much: nearly every day 4. Feeling tired or having little energy: nearly every day 5. Poor appetite or overeating: more than half the days 6. Feeling bad about yourself - or that you are a failure or have let yourself or your family down: not at all 7. Trouble concentrating on things, such as reading the newspaper or watching television: more than half the days 8. Moving or speaking so slowly that other people could have noticed. Or the opposite - being so fidgety or restless that you have been moving around a lot more than usual: more than half the days 9. Thoughts that you would be better off or of hurting yourself in some way: not at all Total score: 15 Depression Screening Interpretation: Positive Depression Screening Done: Yes Source: Developed by Drs. Dionicio Jiang, Pat Whalen, Ashish Eisenberg and colleagues, with an educational duncan from [employer]. Thrive Questionnaire Date Thrive assessed: 11/11/23 I am a: Patient What is your living situation today?: I have a steady place to live Within the past 12 months, did the food you bought not last and you didn't have the money to get more?: Never true Within the past 12 months, did you worry whether your food would run out before you got money to buy more?: Never true Do you have trouble paying for medicines?: No Do you have trouble getting transportation to medical appointments?: No Do you have trouble paying your heating and electricity bill?: No Do you have trouble taking care of your child, family member or friend?: No Do you have trouble with day-to-day activities such as bathing, preparing meals, shopping, managing finances, etc.?: No Are you currently unemployed and looking for a job?: No Are you interested in more education?: No THRIVE Score: 0 SERGEY-7 AMB Questionnaire SERGEY-7 Date SERGEY - 7 assessed: 11/11/23 Feeling nervous, anxious, or on edge: 3 = Nearly every day Not being able to stop or control worryin = Several days Worrying too much about different things: 3 = Nearly every day Trouble relaxin = Nearly every day Being so restless that it is hard to sit still: 2 = More than half the days Becoming easily annoyed or irritable: 3 = Nearly every day Feeling afraid as if something awful might happen: 2 = More than half the days Total SERGEY-7 score (0-4 normal; 5-9 mild; 10-14 moderate; 15-21 severe): 17 Source: Developed by Drs. Dionicio Jiang, Pat Whalen, Ashish Eisenberg and colleagues, with an educational duncan from [employer]. ACT Questionnaire In the past 4 weeks, how much of the time did your asthma keep you from getting as much done at work, school or at home?: None of the time During the past 4 weeks, how often have you had shortness of breath?: Not at all During the past 4 weeks, how often did your asthma symptoms wake you up at night or earlier than usual in the morning?: Not at all During the past 4 weeks, how often have you had to use your rescue inhaler or nebulizer medication?: Not at all Score: 20 Review of Systems Const Denies chills, Denies fatigue, Denies fever(s), Denies headache(s) and Denies weakness Eyes Denies change in vision ENT Denies dizziness, Denies headache(s), Denies hearing loss, Denies nasal congestion, Denies sinus pain, Denies sinus pressure and Denies sore throat Card Denies chest pain, Denies lightheadedness, Denies dyspnea and Denies other (palpitations) Resp Denies cough, Denies dyspnea and Denies wheezing GI Denies abdominal pain, Denies melena, Denies hematochezia, Denies change in bowel habits, Denies dyspepsia and Denies nausea Denies hematuria and Denies dysuria Musc Denies abnormal gait, Denies myalgias, Denies arthralgias, Denies numbness and Denies tingling Skin/Breast Denies rash, Denies unusual bruising and Denies wounds Neuro Denies abnormal gait, Denies dizziness, Denies headache(s), Denies memory loss, Denies numbness, Denies Sensory deficit (Neuro), Denies tingling and Denies weakness Psych Denies anxiety, Denies depression and Denies memory loss Endo Denies cold intolerance, Denies fatigue, Denies heat intolerance, Denies polydipsia and Denies polyuria Justino/Lymph Denies easy bleeding and Denies easy bruising Aller/Immun Denies wheezing Physical exam (Primary Care) Vital Signs: Last Vital Signs Pulse 72 11/11/23 11:18 BP 161/78 H 11/11/23 11:18 Pulse Ox 99 11/11/23 11:18 Oxygen Delivery Method Room Air 11/11/23 11:18 BMI result Body Mass Index 30.7 Tobacco/Smoking Status: Tobacco use Status Tobacco use date assessed 11/11/23 11/11/23 11:22 Patient Tobacco Use Status Never used Tobacco 11/11/23 11:22 e-Cigarette/Vaping Use Never Used 11/11/23 11:22 Depression Screening Interpretation: Positive Thrive Assessment: Date of Thrive Assessment Date Thrive assessed 12/07/22 11/11/23 11:22 Const General: no acute distress, well developed, alert and awake Nutritional Appearance: well nourished Orientation/consciousness: patient oriented x3 HENMT Head: Yes normocephalic and Yes atraumatic Ears: hearing grossly normal bilaterally and TM's normal bilaterally General nose exam: Normal external nose present and Normal nares present Mouth: Normal oral and palatal mucosa present and moist mucous membranes Teeth and gingiva: dentition normal Throat: Yes posterior oropharynx normal Eyes General: appearance normal, both eyes and all related structures Pupils: Equal, round and reactive pupils present and Pupil accommodation reflex normal EOM: EOMs intact bilaterally Neck Neck: Yes normal visual inspection, Yes no lymphadenopathy and Yes trachea midline Thyroid: Thyroid normal Carotids: no bruits Lymphatic: no lymphadenopathy noted Chest Chest palpation & inspection: normal inspection of the chest Resp Effort & Inspection: normal respiratory effort Auscultation: clear to auscultation bilaterally Cardio Rate: regular rate Rhythm: regular rhythm Heart sounds: S1 normal heart sound present, S2 normal heart sound present, no gallops, no murmurs and no rubs Bruits: no abdominal aortic bruits and no carotid bruits GI Palpation (GI): No Abdominal aortic bruit present, Soft to palpation, nontender, No hepatosplenomegaly present and No Rebound tenderness present Auscultation: normal bowel sounds General: Yes no CVA tenderness Back/Spine/Pelvis Back: no CVA tenderness Cervical Spine: cervical ROM normal and No Cervical spine tenderness Thoracic/Lumbar Spine: thoraco-lumbar ROM normal, No pain with thoraco-lumbar ROM, No thoracic spinal tenderness and No lumbar spinal tenderness Skin Lesions: no lesions Rashes: no rashes Trauma: no lacerations or abrasions Wounds: no wounds Nails: normal Neuro General: patient oriented x3 Cranial nerves: Yes Equal, round and reactive pupils present Cognition (Neuro): normal cognition Gait exam (Neuro): Normal gait present Motor exam (neuro): 5/5 motor strength present throughout Sensory Exam: No Sensory deficit (Neuro) Deep tendon reflexes (DTR's): Right patellar reflex intensity grade: 2+ and Left patellar reflex intensity grade: 2+ Extrem General: Yes normal to inspection and No edema Psych Appearance: grossly normal Affect: normal affect Attitude: cooperative Thought process: Normal thought process present Assessment and Plan Assessment & Plan (1) Altered mental status: Code(s): R41.82 - Altered mental status, unspecified Plan: Had?ordered?CT?scan?and?this?has?not?been?done?yet. Reordered?as?CT?head?without?contrast. Will?follow-up?with?patient (2) Dysarthria: Code(s): R47.1 - Dysarthria and anarthria (3) Essential hypertension: Code(s): I10 - Essential (primary) hypertension Plan: Blood?pressure?is?too?high.??Goal?is?less?than?140/90 He?is?on?amlodipine?and?lisinopril. Will?increase?his?lisinopril?to?20?mg?daily. Check?blood?pressures?at?home Call?for?any?problems (4) Diabetes type 2, controlled: Code(s): E11.9 - Type 2 diabetes mellitus without complications Plan: A1c?7.0%. ?This?has?increased?from?prior?check.??Still?fairly?good?control.??Goal?is?7.0?o r?lower Continue?current?medication?regimen Work?at?diet?lower?in?sugars?and?starches (5) Sleep disorder, unspecified: Comment: Snoring, sleep maintenance difficulties, sleep initiation difficulties, REM type sleep behaviors, excessive daytime sleepiness. Code(s): G47.9 - Sleep disorder, unspecified Plan: Has?not?had?sleep?study?and?I?will?renew?his?referral. (6) Screening for prostate cancer: Code(s): Z12.5 - Encounter for screening for malignant neoplasm of prostate Plan: Check?PSA (7) Screening for colon cancer: Code(s): Z12.11 - Encounter for screening for malignant neoplasm of colon Plan: Colonoscopy?last?year?recommended?follow-up?in?1-2?years Follow-up?with?GI?at?[facility]?as?recommended (8) Unsteady gait: Code(s): R26.81 - Unsteadiness on feet Plan: Start?physical?therapy (9) Adult general medical exam: Code(s): Z00.00 - Encounter for general adult medical examination without abnormal findings Plan: 78-year-old?male?presents?for?complete?physical?exam Orders: Orders AMB Hemoglobin A1c Today Z13.9 - Encounter for screening, unspecified Comprehensive [place]rish. Panel Fast Today Z00.00 - Encounter for general adult medical examination without abnormal findings Complete Blood Count Auto Diff Today Z00.00 - Encounter for general adult medical examination without abnormal findings Microalbumin, Random (w Creat) Today I10 - Essential (primary) hypertension Prostate Specific Antigen Scr Today Z12.5 - Encounter for screening for malignant neoplasm of prostate Lipid Panel Today Z00.00 - Encounter for general adult medical examination without abnormal findings UA and rflx microscopic Today Z00.00 - Encounter for general adult medical examination without abnormal findings Vitamin B12 and Folate Today E53.8 - Deficiency of other specified B group vitamins CT head/brain wo IV con Today R41.82 - Altered mental status, unspecified PT Evaluation and Treatment Today R26.81 - Unsteadiness on feet TSH reflex Free T4 Today Z00.00 - Encounter for general adult medical examination without abnormal findings Vitamin D 25-OH Total Today E55.9 - Vitamin D deficiency, unspecified Referrals Speech and Hearing Referral R47.1 - Dysarthria and anarthria Medications: Changed From lisinopril 5 mg PO DAILY 90 days 90 tabs 2RF To lisinopril 20 mg PO DAILY 90 tabs 2RF 90 days Refilled omeprazole 40 mg PO DAILY 90 caps 2RF 90 days Coding Level of Care Code Est Pt Level 4 (20395) Diagnoses Altered mental status R41.82 Dysarthria R47.1 Essential hypertension I10 Diabetes type 2, controlled E11.9 Sleep disorder, unspecified G47.9 Screening for prostate cancer Z12.5 Screening for colon cancer Z12.11 Unsteady gait R26.81 Adult general medical exam Z00.00
== END 2023-11-11 12:40 | disposition home or self-care (01) ==
PROVIDERS: PCP Family Medicine; Visit Provider Family Medicine
DX: R41.82 Altered mental status, unspecified (principal); R47.1 Dysarthria and anarthria; I10 Essential (primary) hypertension; E11.9 Type 2 diabetes mellitus without complications; G47.9 Sleep disorder, unspecified; Z12.5 Encounter for screening for malignant neoplasm of prostate; Z12.11 Encounter for screening for malignant neoplasm of colon; R26.81 Unsteadiness on feet; Z00.00 Encounter for general adult medical examination without abnormal findings
CPT/HCPCS: 99214

== ENCOUNTER 2023-11-14 09:25 | Outpatient (REF) | payer OTHER, SELFPAY ==
[2023-11-14 11:25] LABS: MANUAL DIFF FLAG NO
[2023-11-14 12:22] LABS: Basophils Percent Auto 0.4 % (0-2); Eosinophils Absolute Auto 0.2 X10*3/uL (0.0-0.4); Hematocrit 38.5 % (42.0-52.0); Hemoglobin 12.6 g/dl (14.0-18.0); Imm Gran Abs Auto 0.02 X10*3/uL (0.00-0.03); Imm Gran Pct Auto 0.3 % (0.0-0.4); Lymphocytes Absolute Auto 1.3 X10*3/uL (1.2-4.9); Lymphocytes Percent Auto 17.6 % (20-40); Mean Corpuscular HGB Conc 32.7 g/dl (31.0-36.0); Mean Corpuscular Hemoglobin 29.5 pg (27.0-33.0); Mean Corpuscular Volume 90.2 fL (80.0-98.0); Mean Platelet Volume 9.9 fL (9.4-12.4); Monocytes Absolute Auto 0.7 X10*3/uL (0.1-1.2); Monocytes Percent Auto 9.1 % (2-11); Neutrophils Absolute Auto 5.3 x10*3/uL (2.0-8.3); Neutrophils Percent Auto 70.6 % (45-73); Platelet Count 318 X10*3/uL (160-400); Red Blood Count 4.27 X10*6/uL (4.60-5.80); Red Cell Distribution Width 13.4 % (11.0-16.0); White Blood Count 7.5 X10*3/uL (4.8-10.8)
[2023-11-14 13:00] LABS: Alanine Aminotransferase 15 U/L (0-40); Albumin Level 4.1 g/dL (3.5-5.0); Alkaline Phosphatase 86 U/L (39-117); Anion Gap 13 (12-20); Aspartate Amino Transferase 13 U/L (5-37); Bilirubin Total 0.6 mg/dL (0.0-1.0); Blood Urea Nitrogen 16 mg/dL (9-16); Carbon Dioxide 25 mmol/L (22-29); Chloride 106 mmol/L (96-108); Cholesterol 140 mg/dL (<200); Estimated Glomerular Filt Rate > 60; Glucose Fasting 117 mg/dL (60-99); HDL Cholesterol 44 mg/dL (>40); LDL Cholesterol Calculated 82 mg/dL (<100); Potassium 4.1 mmol/L (3.3-5.1); Sodium 140 mmol/L (135-145); Total Protein 7.3 g/dL (6.5-8.0); Triglycerides 74 mg/dL (<150)
[2023-11-14 13:06] LABS: Vitamin D 25-OH Total 44.4 ng/mL (>30)
[2023-11-14 13:13] LABS: Folate 12.6 ng/mL (> or = 4.0); Prostate Specific Antigen Scr 1.19 ng/mL (<0.05-4.0); Vitamin B12 542 pg/mL (200-900)
[2023-11-14 14:22] LABS: Appearance Urine Clear; Color Urine Yellow; Glucose Urine UA Negative (Negative); Leukocyte Esterase Urine Negative (Negative); Nitrite Urine Negative (Negative); PH 5.5 (5.0-9.0); Urine Blood Negative (Negative); Urine Ketones Negative (Negative); Urine Protein Negative (Neg-Trace)
[2023-11-14 16:02] LABS: Creatinine Urine 101.35 mg/dL; Microalbum/Creatinine Ratio Ur 78.9 ug/mg cr (<30)
== END 2023-11-14 09:26 | disposition home or self-care (01) ==
LOC: HO.WFDLDS 09:25
PROVIDERS: Visit Provider Family Medicine
DX: Z00.00 Encounter for general adult medical examination without abnormal findings (principal); I10 Essential (primary) hypertension; E55.9 Vitamin D deficiency, unspecified; E53.8 Deficiency of other specified B group vitamins; Z12.5 Encounter for screening for malignant neoplasm of prostate
CPT/HCPCS: 36415; 80053; 80061; 81003; 82043; 82306; 82570; 82607; 82746; 84153; 84443; 85025

== ENCOUNTER 2023-12-16 09:16 | Outpatient (AMB) | payer OTHER, SELFPAY ==
[2023-12-16 09:26] VITALS: BP 126/72; PULSE 65; O2SAT 98; BMI 30.5
--- NOTE | 2023-12-16 09:26 | MHC.PC.OV ---
Vital Signs 12/16/23 09:26 Height 5 ft 2 in Weight 167 lb BMI 30.5 BP 126/72 Blood Pressure Location Lt brachial Position Sitting Pulse 65 Pulse Source Pulse Oximeter Pulse Oximetry (%) 98 Oxygen Delivery Method Room Air Intake Visit Reasons: f/u CPE-labs Intake Note: Pt presents to the office today for a follow up CPE- labs. Pt states he is feeling well and denies any concerns at this time. Allergies Benzodiazepines Allergy (Mild, Verified 12/16/23 09:28) Unknown narcotics Allergy (Severe, Uncoded 12/16/23 09:28) memory loss Tobacco use date assessed: 12/16/23 Fall risk assessment: No Falls in past year Last assessed Fall Risk: 12/16/23 Dental Screening Dental Screen Date: 12/16/23 Did you have a dental visit in the last 12 months?: Yes Did you have a dental problem in the last 6 months where you did not have access to dental care?: No Was dental information given to patient?: Patient has dentist HPI f/u CPE-labs HPI Details 78 y/o male presents to f/u diabetes and hypertension. A1c today 12/16/23 is 6.6%. Blood pressure today 126/72. He is on lisinopril 20mg, amlodipine 5mg daily. They note sertraline has been helping with his mood. FORMERLY [facility], [facility] Medical History History of anemia GERD (gastroesophageal reflux disease) Vitamin D deficiency Hypertension Diabetes mellitus Surgical History Hx of endoscopy Hx of colonoscopy Hx of left knee surgery Family History (Updated 12/16/23 @ 09:30 by Kamryn Meléndez MA) Father Colon cancer Brother No problems noted. Brother No problems noted. Sister No problems noted. Sister Liver cancer Son No problems noted. Daughter No problems noted. Social History Household Members: Spouse Housing: Apartment Are you a primary patient care provider to a significant other at home: No Do you presently have visiting nurse or other home services: No Alcohol intake: never Patient Tobacco Use Status: Never used Tobacco e-Cigarette/Vaping Use: Never Used Second Hand Smoke Exposure: No service: No Current occupational status: retired Current occupational exposures/hazards: No Cognitive needs: No Hearing needs: No Vision needs: No Questionnaire PHQ-9 Over the last 2 weeks, how often have you been bothered by any of the following problems? 1. Little interest or pleasure in doing things: several days 2. Feeling down, depressed, or hopeless: more than half the days 3. Trouble falling or staying asleep, or sleeping too much: nearly every day 4. Feeling tired or having little energy: nearly every day 5. Poor appetite or overeating: more than half the days 6. Feeling bad about yourself - or that you are a failure or have let yourself or your family down: not at all 7. Trouble concentrating on things, such as reading the newspaper or watching television: more than half the days 8. Moving or speaking so slowly that other people could have noticed. Or the opposite - being so fidgety or restless that you have been moving around a lot more than usual: more than half the days 9. Thoughts that you would be better off or of hurting yourself in some way: not at all Total score: 15 Depression Screening Interpretation: Positive Depression Screening Done: Yes Source: Developed by Drs. Dionicio Jiang, Pat Whalen, Ashish Eisenberg and colleagues, with an educational duncan from [employer]. Thrive Questionnaire Date Thrive assessed: 11/11/23 I am a: Patient What is your living situation today?: I have a steady place to live Within the past 12 months, did the food you bought not last and you didn't have the money to get more?: Never true Within the past 12 months, did you worry whether your food would run out before you got money to buy more?: Never true Do you have trouble paying for medicines?: No Do you have trouble getting transportation to medical appointments?: No Do you have trouble paying your heating and electricity bill?: No Do you have trouble taking care of your child, family member or friend?: No Do you have trouble with day-to-day activities such as bathing, preparing meals, shopping, managing finances, etc.?: No Are you currently unemployed and looking for a job?: No Are you interested in more education?: No THRIVE Score: 0 AUDIT C Alcohol Use Questionnaire (AUDIT-C) 1. How often do you have a drink containing alcohol?: Never 3. How often do you have six or more drinks on one occasion?: Never Total Score: 0 SERGEY-7 AMB Questionnaire SERGEY-7 Date SERGEY - 7 assessed: 11/11/23 Feeling nervous, anxious, or on edge: 3 = Nearly every day Not being able to stop or control worryin = Several days Worrying too much about different things: 3 = Nearly every day Trouble relaxin = Nearly every day Being so restless that it is hard to sit still: 2 = More than half the days Becoming easily annoyed or irritable: 3 = Nearly every day Feeling afraid as if something awful might happen: 2 = More than half the days Total SERGEY-7 score (0-4 normal; 5-9 mild; 10-14 moderate; 15-21 severe): 17 Source: Developed by Drs. Dionicio Jiang, Pat Whalen, Ashish Eisenberg and colleagues, with an educational duncan from [employer]. Physical exam (Primary Care) Vital Signs: Last Vital Signs Pulse 65 12/16/23 09:26 BP 126/72 12/16/23 09:26 Pulse Ox 98 12/16/23 09:26 Oxygen Delivery Method Room Air 12/16/23 09:26 BMI result Body Mass Index 30.5 Tobacco/Smoking Status: Tobacco use Status Tobacco use date assessed 12/16/23 12/16/23 09:31 Patient Tobacco Use Status Never used Tobacco 12/16/23 09:31 e-Cigarette/Vaping Use Never Used 12/16/23 09:31 PHQ-9: PHQ-9 Score PHQ-9: Total score 15 12/16/23 09:57 Depression Screening Interpretation: Positive Thrive Assessment: Date of Thrive Assessment Date Thrive assessed 11/11/23 12/16/23 09:31 Results AMB Hemoglobin A1c AMB Hemoglobin A1c 6.6 % Last Edit by Kamryn Meléndez MA on 12/16/23 09:49 Results Reviewed Results Reviewed: Laboratory Last Values Hgb A1c (Clinic) 6.6 % (4.0-6.0) H 12/16/23 09:48 Assessment and Plan Assessment & Plan (1) Essential hypertension: Code(s): I10 - Essential (primary) hypertension Plan: Blood?pressure?now?well?controlled.??Goal?is?less?than?140/90 Continue?medication?regimen (2) Diabetes type 2, controlled: Code(s): E11.9 - Type 2 diabetes mellitus without complications Plan: A1c?6.6%.??Good?control.??Goal?is?less?than?7.0% Continue?current?medication?regimen (3) Altered mental status: Code(s): R41.82 - Altered mental status, unspecified Plan: Ongoing?altered?mental?status?though?this?seems?improved?with?increase?in?sertraline. It?appears?that?patient?was?taking?half?a?tablet?daily?and?is?now?taking?a?whole?tablet?(50?mg). Continue?increased?sertraline?dose?and?he?has?an?appointment?for?CT?scan?of?the?head?on?December?. They?can?call?to?schedule?a?telemedicine?appointment?to?review?CT?results?after?the?scan. Orders: Orders AMB Hemoglobin A1c Today E11.9 - Type 2 diabetes mellitus without complications Coding Level of Care Code Est Pt Level 3 (46564) Diagnoses Essential hypertension I10 Diabetes type 2, controlled E11.9 Altered mental status R41.82
== END 2023-12-16 10:18 | disposition home or self-care (01) ==
PROVIDERS: PCP Family Medicine; Visit Provider Family Medicine
DX: I10 Essential (primary) hypertension (principal); E11.9 Type 2 diabetes mellitus without complications; R41.82 Altered mental status, unspecified
CPT/HCPCS: 83036; 99213

== ENCOUNTER 2023-12-28 07:26 | Outpatient (REF) | payer OTHER, SELFPAY ==
--- NOTE | ~2023-12-28 | CT_ITS ---
EXAMINATION: CT HEAD WITHOUT CONTRAST CLINICAL INFORMATION: Altered mental status. COMPARISON: None. TECHNIQUE: Contiguous axial imaging was performed from the skullbase to vertex without intravenous administration of contrast. This CT examination was performed using dose optimization techniques as appropriate, variously including the following: *Automated exposure control *Adjustment of mA and/or kV according to patient size (this includes techniques or standardized protocols for targeted exams where dose is matched to indication/reason for exam; i.e. extremities or head) *Use of iterative reconstruction technique DLP: 815 mGy-cm. FINDINGS: There is no evidence of acute intracranial hemorrhage or territorial infarction. No abnormal mass effect or midline shift is seen. Mata to white matter differentiation is well preserved. No extra-axial fluid collections are identified. Mild to moderate chronic white matter microangiopathy changes noted. There is mild generalized brain parenchymal volume loss with commensurate mild ex vacuo prominence of the ventricles. The osseous structures and soft tissues are normal. The mastoid air cells and visualized portions of the paranasal sinuses are well aerated. CT/CT head/brain wo IV con IMPRESSION: No acute intracranial hemorrhage or territorial infarction. Mild to moderate chronic white matter microangiopathy and mild generalized brain parenchymal volume loss.
== END 2023-12-28 07:27 | disposition home or self-care (01) ==
LOC: HO.CT 07:26
PROVIDERS: PCP Family Medicine; Visit Provider Family Medicine
DX: R41.82 Altered mental status, unspecified (principal)
CPT/HCPCS: 70450

== ENCOUNTER 2024-01-06 12:55 | Outpatient (AMB) | payer OTHER, SELFPAY ==
--- NOTE | 2024-01-06 12:49 | A.OFFPC_ITS ---
Intake Visit Reasons: follow up ct Intake Note: Patient is following up on head CT today. Allergies Benzodiazepines Allergy (Mild, Verified 01/06/24 12:49) Unknown narcotics Allergy (Severe, Uncoded 01/06/24 12:49) memory loss Medication List - Last Reconciled 01/06/24 by Navid Fields MD amlodipine 5 mg PO DAILY atorvastatin 10 mg PO DAILY 90 days blood sugar diagnostic (FreeStyle Lite Strips) DX: E11.9, test blood sugar 3 times a day, 90 days blood-glucose meter (FreeStyle Lite Meter kit) DX: E11.9, test blood sugar 3 t imes a day, duration 999 days cholecalciferol (vitamin D3) (Vitamin D3) 25 mcg PO DAILY 90 days lancets (FreeStyle Lancets) As directed lisinopril 20 mg PO DAILY 90 days metformin 850 mg PO BID 90 days multivitamin with folic acid 400 mcg (Daily-Joselyn (with folic acid)) 1 tab PO DAILY naproxen 500 mg PO BID PRN 14 days omeprazole 40 mg PO DAILY 90 days sertraline 50 mg PO DAILY 90 days Tobacco use date assessed: 01/06/24 Fall risk assessment: No Falls in past year Last assessed Fall Risk: 01/06/24 Dental Screening Dental Screen Date: 12/16/[address] HPI Details Telemedicine?appointment?to?follow-up?altered?mental?status Patient?notes?his?mental?status?has?already?improved?since?increasing?sertraline Head?CT?did?not?show?a ny?acute?issues?but?did?show?chronic?microangiopathy?and?some?volume?loss. Otherwise?feels?well.??No?new?complaints PENDING SALE TO [facility] Medical History History of anemia GERD (gastroesophageal reflux disease) Vitamin D deficiency Hypertension Diabetes mellitus Surgical History Hx of endoscopy Hx of colonoscopy Hx of left knee surgery Family History Father Colon cancer Brother No problems noted. Brother No problems noted. Sister No problems noted. Sister Liver cancer Son No problems noted. Daughter No problems noted. Social History Household Members: Spouse Housing: Apartment Are you a primary aged or disabled care worker to a significant other at home: No Do you presently have visiting nurse or other home services: No Alcohol intake: never Patient Tobacco Use Status: Never used Tobacco e-Cigarette/Vaping Use: Never Used Second Hand Smoke Exposure: No service: No Current occupational status: retired Current occupational exposures/hazards: No Cognitive needs: No Hearing needs: No Vision needs: No Questionnaire Thrive Questionnaire Date Thrive assessed: 11/11/23 SERGEY-7 AMB Questionnaire SEREGY-7 Date SERGEY - 7 assessed: 11/11/23 Source: Developed by Drs. Dionicio Jiang, Pat Whalen, Ashish Eisenberg and colleagues, with an educational duncan from [employer]. Physical exam (Primary Care) Tobacco/Smoking Status: Tobacco use Status Tobacco use date assessed 01/06/24 01/06/24 12:51 Patient Tobacco Use Status Never used Tobacco 01/06/24 12:51 e-Cigarette/Vaping Use Never Used 01/06/24 12:51 Thrive Assessment: Date of Thrive Assessment Date Thrive assessed 11/11/23 01/06/24 12:51 Telehealth Telehealth Location of provider rendering services: practice address Location of patient: address on file Patient Identification confirmed using: Name, : Yes Telehealth method: voice only Patient verbally consented to treatment: Yes Patient verbally consented to billing insurance company: Yes Patient informed of any privacy concerns related to visit: Yes Minutes spent on Phone/Video with Pt.: 5 Assessment and Plan Assessment & Plan (1) Altered mental status: Code(s): R41.82 - Altered mental status, unspecified Plan: This?has?improved?with?increase?in?sertraline?dose. Head?CT: No acute intracranial hemorrhage or territorial infarction. Mild to moderate chronic white matter microangiopathy and mild generalized brain parenchymal volume loss. Discussed?good?blood?pressure,?blood?sugar?and?cholesterol?control. Coding Level of Care Code Tele Est Pt Level 2 (59260) Diagnoses Altered mental status R41.82
== END 2024-01-10 08:52 | disposition home or self-care (01) ==
LOC: HO.HMGFM 12:55
PROVIDERS: PCP Family Medicine; Visit Provider Family Medicine
DX: R41.82 Altered mental status, unspecified (principal)
CPT/HCPCS: 99441

== ENCOUNTER 2024-03-23 10:44 | Outpatient (AMB) | payer OTHER, SELFPAY ==
[2024-03-23 10:53] VITALS: BP 122/70; PULSE 80; O2SAT 98; BMI 30.2
--- NOTE | 2024-03-23 10:53 | A.OFFPC_ITS ---
Vital Signs 03/23/24 10:53 Height 5 ft 2 in Weight 165 lb BMI 30.2 BP 122/70 Blood Pressure Location Lt brachial Position Sitting Pulse 80 Pulse Source Pulse Oximeter Pulse Oximetry (%) 98 Oxygen Delivery Method Room Air Intake Visit Reasons: f/u diabets Intake Note: Patient is here to follow up on diabetes. Patient needs refills on his Lantus and his needles. Allergies Benzodiazepines Allergy (Mild, Verified 03/23/24 10:56) Unknown narcotics Allergy (Severe, Uncoded 03/23/24 10:56) memory loss Tobacco use date assessed: 01/06/24 Fall risk assessment: No Falls in past year Last assessed Fall Risk: 03/23/24 Dental Screening Dental Screen Date: 12/16/23 HPI f/u diabets HPI Details 79 y/o male presents to f/u diabetes. Last A1c 12/16/23 6.6%. A1c today 03/23/24 is 6.8%. He is on metformin 850mg He notes he does not get much exercise due to pain. Ongoing/worsening mental status changes. HPI Comments History of Present Illness Details Documentation assistance for Navid Fields MD, was provided by Tong Bolton,? Human Service Specialist on 03/23/2024 at 11:32 AM EST. I, Dr. Fields, have read, observed, and verified documentation. FORMERLY [facility], [facility] Medical History History of anemia GERD (gastroesophageal reflux disease) Vitamin D deficiency Hypertension Diabetes mellitus Surgical History Hx of endoscopy Hx of colonoscopy Hx of left knee surgery Family History Father Colon cancer Brother No problems noted. Brother No problems noted. Sister No problems noted. Sister Liver cancer Son No problems noted. Daughter No problems noted. Social History Household Members: Spouse Housing: Apartment Are you a primary caregiver services home to a significant other at home: No Do you presently have visiting nurse or other home services: No Alcohol intake: never Patient Tobacco Use Status: Never used Tobacco e-Cigarette/Vaping Use: Never Used Second Hand Smoke Exposure: No service: No Current occupational status: retired Current occupational exposures/hazards: No Cognitive needs: No Hearing needs: No Vision needs: No Questionnaire Thrive Questionnaire Date Thrive assessed: 11/11/23 SERGEY-7 AMB Questionnaire SERGEY-7 Date SERGEY - 7 assessed: 11/11/23 Source: Developed by Drs. Dionicio Jiang, Pat Whalen, Ashish Eisenberg and colleagues, with an educational duncan from [employer]. Review of Systems Const Denies chills, Denies fatigue, Denies fever(s), Denies headache(s) and Denies weakness ENT Denies dizziness and Denies headache(s) Card Denies dyspnea Resp Denies cough, Denies dyspnea, Denies wheezing and Denies other (shortness of breath) Musc Denies numbness and Denies tingling Neuro Denies dizziness, Denies headache(s), Denies numbness, Denies tingling and Denies weakness Psych Denies anxiety and Denies depression Endo Denies fatigue Aller/Immun Denies wheezing Physical exam (Primary Care) Vital Signs: Last Vital Signs Pulse 80 03/23/24 10:53 BP 122/70 03/23/24 10:53 Pulse Ox 98 03/23/24 10:53 Oxygen Delivery Method Room Air 03/23/24 10:53 BMI result Body Mass Index 30.2 Tobacco/Smoking Status: Tobacco use Status Tobacco use date assessed 01/06/24 03/23/24 10:55 Patient Tobacco Use Status Never used Tobacco 03/23/24 10:55 e-Cigarette/Vaping Use Never Used 03/23/24 10:55 Thrive Assessment: Date of Thrive Assessment Date Thrive assessed 11/11/23 03/23/24 10:55 Const General: well developed; No acute distress Nutritional Appearance: well nourished Orientation/consciousness: patient oriented x3 HENMT Head: Yes normocephalic and Yes atraumatic Eyes General: appearance normal, both eyes and all related structures Pupils: Equal, round and reactive pupils present EOM: EOMs intact bilaterally Resp Effort & Inspection: normal respiratory effort Neuro General: patient oriented x3 and gait normal Cranial nerves: Yes Equal, round and reactive pupils present Psych Affect: normal affect Assessment and Plan Assessment & Plan (1) Diabetes type 2, controlled: Code(s): E11.9 - Type 2 diabetes mellitus without complications Plan: A1c?6.8%?is?good?control?th ough?this?has?increased?from?6.6%?at?last?check.??Goal?is?less?than?7.0% No?medication?changes Encouraged?diabetic?diet?and?exercise?as?tolerated (2) Essential hypertension: Code(s): I10 - Essential (primary) hypertension Plan: Blood?pressure?is?controlled.??Goal?is?less?than?140/90 Continue?current?medication (3) Altered mental status: Code(s): R41.82 - Altered mental status, unspecified Plan: Ongoing?and?worsening?mental?status?changes?including?disorientation Brain?CT?scan?shows?microangiopathic?changes?with?volume?loss Patient?was?referred?to?neuropsychiatry?for?evalu ation?but?still?has?not?been?given?an?appointment. Will?refer?to?outpatient?psychiatric?consult Continue?controlling?blood?pressure,?blood?sugar?and?cholesterol. Encouraged?exercise?and?social?interaction. Orders: Orders AMB Hemoglobin A1c Today Z13.9 - Encounter for screening, unspecified Referrals Psychiatry Outpatient Consultation Service R41.82 - Altered mental status, unspecified Coding Level of Care Code Est Pt Level 4 (59734) Diagnoses Diabetes type 2, controlled E11.9 Essential hypertension I10 Altered mental status R41.82
== END 2024-03-23 11:57 | disposition home or self-care (01) ==
PROVIDERS: PCP Family Medicine; Visit Provider Family Medicine
DX: E11.9 Type 2 diabetes mellitus without complications (principal); I10 Essential (primary) hypertension; R41.82 Altered mental status, unspecified
CPT/HCPCS: 83036; 99214

== ENCOUNTER 2024-08-10 11:33 | Outpatient (AMB) | payer OTHER, SELFPAY ==
--- NOTE | 2024-08-10 11:41 | MHC.PC.OV ---
Vital Signs 08/10/24 11:58 Height 5 ft 2 in Weight 160 lb 4 oz BMI 29.3 BP 116/60 Blood Pressure Location Lt brachial Position Sitting Respiration 14 Pulse 92 Pulse Source Pulse Oximeter Temp 97.9 F Temp Source Oral Pulse Oximetry (%) 97 Oxygen Delivery Method Room Air Intake Visit Reasons: Rebooked-06/25 F/U diabetes and Hypertension Intake Note: f/u DM and HTN Allergies Benzodiazepines Allergy (Mild, Verified 08/10/24 11:57) Unknown narcotics Allergy (Severe, Uncoded 03/23/24 10:56) memory loss Tobacco use date assessed: 01/06/24 Dental Screening Dental Screen Date: 12/16/23 HPI Rebooked-06/25 F/U diabetes and Hypertension HPI Details 79 y/o male presents to f/u hypertension, diabetes, altered mental status. Last A1c 03/23/24 6.8%. He is on metformin 850mg daily. A1c today 08/10/24 6.5%. Blood pressure today PFSH Medical History History of anemia GERD (gastroesophageal reflux disease) Vitamin D deficiency Hypertension Diabetes mellitus Surgical History Hx of endoscopy Hx of colonoscopy Hx of left knee surgery Family History Father Colon cancer Brother No problems noted. Brother No problems noted. Sister No problems noted. Sister Liver cancer Son No problems noted. Daughter No problems noted. Social History Household Members: Spouse Housing: Apartment Are you a primary home day care provider to a significant other at home: No Do you presently have visiting nurse or other home services: No Alcohol intake: never Patient Tobacco Use Status: Never used Tobacco e-Cigarette/Vaping Use: Never Used Second Hand Smoke Exposure: No service: No Current occupational status: retired Current occupational exposures/hazards: No Cognitive needs: No Hearing needs: No Vision needs: No Questionnaire PHQ-9 Over the last 2 weeks, how often have you been bothered by any of the following problems? 1. Little interest or pleasure in doing things: several days 2. Feeling down, depressed, or hopeless: more than half the days 3. Trouble falling or staying asleep, or sleeping too much: nearly every day 4. Feeling tired or having little energy: more than half the days 5. Poor appetite or overeating: several days 6. Feeling bad about yourself - or that you are a failure or have let yourself or your family down: several days 7. Trouble concentrating on things, such as reading the newspaper or watching television: several days 8. Moving or speaking so slowly that other people could have noticed. Or the opposite - being so fidgety or restless that you have been moving around a lot more than usual: several days 9. Thoughts that you would be better off or of hurting yourself in some way: not at all Total score: 12 Source: Developed by Drs. Dionicio Jiang, Pat Whalen, Ashish Eisenberg and colleagues, with an educational duncan from [employer]. Thrive Questionnaire Date Thrive assessed: 11/11/23 I am a: Patient What is your living situation today?: I have a steady place to live Within the past 12 months, did the food you bought not last and you didn't have the money to get more?: Never true Within the past 12 months, did you worry whether your food would run out before you got money to buy more?: Never true Do you have trouble paying for medicines?: No Do you have trouble getting transportation to medical appointments?: No Do you have trouble paying your heating and electricity bill?: No Do you have trouble taking care of your child, family member or friend?: No Do you have trouble with day-to-day activities such as bathing, preparing meals, shopping, managing finances, etc.?: Yes Are you currently unemployed and looking for a job?: No Are you interested in more education?: No Please select the resources that you would like help with: None Currently or been in a relationship where the following occur: No concerns reported THRIVE Score: 0 AUDIT C Alcohol Use Questionnaire (AUDIT-C) 1. How often do you have a drink containing alcohol?: Never Total Score: 0 SERGEY-7 AMB Questionnaire SERGEY-7 Date SERGEY - 7 assessed: 11/11/23 Feeling nervous, anxious, or on edge: 2 = More than half the days Not being able to stop or control worryin = Several days Worrying too much about different things: 1 = Several days Trouble relaxin = More than half the days Being so restless that it is hard to sit still: 0 = Not at all Becoming easily annoyed or irritable: 2 = More than half the days Feeling afraid as if something awful might happen: 1 = Several days Total SERGEY-7 score (0-4 normal; 5-9 mild; 10-14 moderate; 15-21 severe): 9 Source: Developed by Drs. Dionicio Jiang, Pat Whalen, Ashish Eisenberg and colleagues, with an educational duncan from [employer]. Review of Systems Const Denies chills, Denies fatigue, Denies fever(s), Denies headache(s) and Denies weakness ENT Denies dizziness and Denies headache(s) Card Denies dyspnea Resp Denies cough, Denies dyspnea, Denies wheezing and Denies other (shortness of breath) Musc Denies numbness and Denies tingling Neuro Denies dizziness, Denies headache(s), Denies numbness, Denies tingling and Denies weakness Psych Denies anxiety and Denies depression Endo Denies fatigue Aller/Immun Denies wheezing Physical exam (Primary Care) Vital Signs: Last Vital Signs Temp 97.9 F 08/10/24 11:58 Pulse 92 08/10/24 11:58 Resp 14 08/10/24 11:58 BP 116/60 08/10/24 11:58 Pulse Ox 97 08/10/24 11:58 Oxygen Delivery Method Room Air 08/10/24 11:58 BMI result Body Mass Index 29.3 Tobacco/Smoking Status: Tobacco use Status Tobacco use date assessed 01/06/24 08/10/24 11:43 Patient Tobacco Use Status Never used Tobacco 08/10/24 11:43 e-Cigarette/Vaping Use Never Used 08/10/24 11:43 PHQ-9: PHQ-9 Score PHQ-9: Total score 12 08/10/24 12:02 Thrive Assessment: Date of Thrive Assessment Date Thrive assessed 11/11/23 08/10/24 11:43 Currently or been in a relationship where the following occur: No concerns reported Const General: well developed; No acute distress Nutritional Appearance: well nourished Orientation/consciousness: patient oriented x3 [facility] Head: Yes normocephalic and Yes atraumatic Eyes General: appearance normal, both eyes and all related structures Pupils: Equal, round and reactive pupils present EOM: EOMs intact bilaterally Resp Effort & Inspection: normal respiratory effort Auscultation: clear to auscultation bilaterally Cardio Rate: regular rate Rhythm: regular rhythm Heart sounds: S1 normal heart sound present, S2 normal heart sound present, no gallops, no murmurs and no rubs Neuro General: patient oriented x3 and gait normal Cranial nerves: Yes Equal, round and reactive pupils present Psych Affect: normal affect Coding Level of Care Code Est Pt Level 3 (75767) Diagnoses Essential hypertension I10 Diabetes type 2, controlled E11.9 Sleep apnea G47.30 Altered mental status R41.82 Assessment & Plan Assessment & Plan (1) Essential hypertension: Code(s): I10 - Essential (primary) hypertension Category: Medical Plan: Blood?pressure?is?well?controlled.??Goal?is?less?than?140/90 Continue?current?medication (2) Diabetes type 2, controlled: Code(s): E11.9 - Type 2 diabetes mellitus without complications Category: Medical Plan: A1c?improved?and?now?6.5%.??Good?control.??Goal?is?less?than?7.0% Continue?current?medication?regimen?and?diabetic?diet Continue?exercise?and?weight?control Recent?eye?ewmr-hd-of-date 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 Family?says?that?they?have?recommended?further?follow-up?and?investigation?by?sleep?medicine?before?they?can?make?a?determination?of?dementia. Referred?back?to?Sleep?Medicine Orders: Referrals Sleep Medicine Referral G47.30 - Sleep apnea, unspecified, R41.82 - Altered mental status, unspecified Podiatry Referral E11.9 - Type 2 diabetes mellitus without complications
[2024-08-10 11:58] VITALS: BP 116/60; PULSE 92; RESP 14; TEMP 36.6; O2SAT 97; BMI 29.3
== END 2024-08-10 12:29 | disposition home or self-care (01) ==
PROVIDERS: PCP Family Medicine; Visit Provider Family Medicine
DX: I10 Essential (primary) hypertension (principal); E11.9 Type 2 diabetes mellitus without complications; G47.30 Sleep apnea, unspecified; R41.82 Altered mental status, unspecified

== ENCOUNTER → 2024-08-10 11:33 | Outpatient (BNVA) | payer OTHER, SELFPAY | PROVIDERS: PCP Family Medicine; Visit Provider Family Medicine | DX: I10 Essential (primary) hypertension (principal); E11.9 Type 2 diabetes mellitus without complications; G47.30 Sleep apnea, unspecified; R41.82 Altered mental status, unspecified | CPT/HCPCS: 96127; 99212 ==

== ENCOUNTER 2024-10-04 10:09 | Outpatient (AMB) | payer OTHER, SELFPAY ==
--- NOTE | 2024-10-04 10:12 | MHC.OFFVIS ---
Vital Signs 10/04/24 10:13 Height 5 ft 2 in Weight 158 lb BMI 28.9 BP 160/80 H Blood Pressure Location Lt brachial Position Sitting Pulse 68 Pulse Source Pulse Oximeter Pulse Oximetry (%) 98 Oxygen Delivery Method Room Air Intake Visit Reasons: INP_OSA Architect Marine Required: No Architect Marine Services: Architect Marine Present Accompanied by: Daughter Allergies Benzodiazepines Allergy (Mild, Verified 10/04/24 10:16) Unknown narcotics Allergy (Severe, Uncoded 03/23/24 10:56) memory loss Medication List - Last Reconciled 10/04/24 by Palomo Dawn PA-C amlodipine 5 mg PO DAILY atorvastatin 10 mg PO DAILY 90 days blood sugar diagnostic (FreeStyle Lite Strips) DX: E11.9, test blood sugar 3 times a day, 90 days blood-glucose meter (FreeStyle Lite Meter kit) DX: E11.9, test blood sugar 3 times a day, duration 999 days cholecalciferol (vitamin D3) (Vitamin D3) 25 mcg PO DAILY 90 days gabapentin 100 mg PO BEDTIME lancets (FreeStyle Lancets) As directed lisinopril 20 mg PO DAILY 90 days metformin 850 mg PO BID 90 days multivitamin with folic acid 400 mcg (Daily-Joselyn (with folic acid)) 1 tab PO DAILY naproxen 500 mg PO BID PRN 14 days omeprazole 40 mg PO DAILY 90 days sertraline 50 mg PO DAILY 90 days Do you need a note to return to daycare/school/sports/work: No HPI Comments Details: 79year old male referred to us by his PCP, Dr. Fields. He has anxiety, and he feels claustrophobic, he tried the PSG he was not able to tolerate it, then he tried the HST, and again he was unable to tolerate it. He sleeps throughout the day and stays awake during the entire night because he needs to urinate. He makes at least 7-8 trips to the bathroom at night, and feels disoriented when he gets up at night. He snores and has abnormal sleep disturbances with nightmares, he screams and hits his left leg with his arm in the middle of the night because he has quick short pins and needles. He is a diabetic, does not smoke, and drinks occasionally during the holidays. His MRI showed normal vascular changes. PFSH Medical History History of anemia GERD (gastroesophageal reflux disease) Vitamin D deficiency Hypertension Diabetes mellitus Surgical History Hx of endoscopy Hx of colonoscopy Hx of left knee surgery Family History Father Colon cancer Brother No problems noted. Brother No problems noted. Sister No problems noted. Sister Liver cancer Son No problems noted. Daughter No problems noted. Social History Household Members: Spouse Housing: Apartment Are you a primary complex care nurse practitioner to a significant other at home: No Do you presently have visiting nurse or other home services: No Alcohol intake: never Patient Tobacco Use Status: Never used Tobacco e-Cigarette/Vaping Use: Never Used Second Hand Smoke Exposure: No service: No Current occupational status: retired Current occupational exposures/hazards: No Cognitive needs: No Hearing needs: No Vision needs: No Review of Systems Const All systems reviewed & are unremarkable except as noted in HPI and below Physical Exam Vital Signs: Last Vital Signs Pulse 68 10/04/24 10:13 BP 160/80 H 10/04/24 10:13 Pulse Ox 98 10/04/24 10:13 Oxygen Delivery Method Room Air 10/04/24 10:13 BMI result Body Mass Index 28.9 Assessment & Plan Assessment & Plan (1) Sleep disorder, unspecified: Comment: Snoring, sleep maintenance difficulties, sleep initiation difficulties, REM type sleep behaviors, excessive daytime sleepiness. Code(s): G47.9 - Sleep disorder, unspecified Category: Medical (2) Excessive daytime sleepiness: Code(s): G47.19 - Other hypersomnia Category: Medical Plan -Sleep disturbances and Insomnia: Home Sleep Study Sleep Hygiene provided, no fluids 2 hours prior to bed, no devices in bed, dark and cold room with temperatures 66-68degrees. -Nocturia Urology Referral going to the bathroom 7x a night. -L. Leg pain Gabapentin 100mg to 200mg PO at bedtime for Leg tingling sensation. Continue Metformin 850mg PO BID as directed by PCP Priscila for mood, Turmeric for inflammation. Orders: Orders RT home sleep study Today G47.19 - Other hypersomnia, G47.9 - Sleep disorder, unspecified Medications: New gabapentin Take 100mg PO at bedtime, you may take 200mg after one week if the pain/ sensation does not improve in one week. This medication will make you sleepy so only at bedtime, no driving. 100 mg PO BEDTIME 30 caps 2RF M79.662 - Pain in left lower leg Coding Level of Care Code Est Pt Level 4 (77783) Diagnoses Sleep disorder, unspecified G47.9 Excessive daytime sleepiness G47.19 Time Spent (min) 30 Comment worsening sleep Sleep Questionnaire Difficulty falling asleep: Yes Difficulty staying asleep?: Yes Number of arousals: 7x to 8x urinating Snoring: Yes Witnessed apneas: Yes Gasping arousals: No Nocturia: Yes GERD: Yes Vivid dreams: Yes Acting out dreams: Yes (swinging arms and hitting his legs) Abnormal behavior in sleep: Yes Abnormal movements in sleep: Yes (arms and legs thrashing) Morning headaches: No Excessive daytime sleepiness: Yes Daytime naps: Yes Restless legs: Yes (tingling ) Hallucinations: Yes (on the couch maggots are seen) Sleep paralysis: No Drop attacks: No Sleep Study: No CPAP: No
[2024-10-04 10:13] VITALS: BP 160/80; PULSE 68; O2SAT 98; BMI 28.9
== END 2024-10-04 11:10 | disposition home or self-care (01) ==
PROVIDERS: PCP Family Medicine; Visit Provider Physician Assistant Medical
DX: G47.9 Sleep disorder, unspecified (principal); G47.19 Other hypersomnia
CPT/HCPCS: 99214

== ENCOUNTER → 2024-10-04 10:09 | Outpatient (BNVA) | payer OTHER, SELFPAY | PROVIDERS: PCP Family Medicine; Visit Provider Physician Assistant Medical | DX: G47.19 Other hypersomnia (principal); R35.1 Nocturia | CPT/HCPCS: 99212 ==

== ENCOUNTER 2024-11-12 09:42 | Outpatient (AMB) | payer OTHER, SELFPAY ==
--- NOTE | 2024-11-12 09:58 | MHC.PC.OV ---
Vital Signs 11/12/24 10:00 Height 5 ft 2 in Weight 155 lb 8 oz BMI 28.4 BP 120/60 Blood Pressure Location Rt brachial Position Sitting Respiration 14 Pulse 83 Pulse Source Pulse Oximeter Temp 98.6 F Temp Source Oral Pulse Oximetry (%) 97 Oxygen Delivery Method Room Air Intake Visit Reasons: f/u diabetes, HTN Intake Note: f/u dm Allergies Benzodiazepines Allergy (Mild, Verified 11/12/24 09:59) Unknown narcotics Allergy (Severe, Uncoded 03/23/24 10:56) memory loss Medication List - Last Reconciled 11/12/24 by Navid Fields MD amlodipine 5 mg PO DAILY atorvastatin 10 mg PO DAILY 90 days blood sugar diagnostic (FreeStyle Lite Strips) DX: E11.9, test blood sugar 3 times a day, 90 days blood-glucose meter (FreeStyle Lite Meter kit) DX: E11.9, test blood sugar 3 times a day, duration 999 days cholecalciferol (vitamin D3) (Vitamin D3) 25 mcg PO DAILY 90 days lancets (FreeStyle Lancets) As directed lisinopril 20 mg PO DAILY 90 days metformin 850 mg PO BID 90 days multivitamin with folic acid 400 mcg (Daily-Joselyn (with folic acid)) 1 tab PO DAILY naproxen 500 mg PO BID PRN 14 days omeprazole 40 mg PO DAILY 90 days sertraline 50 mg PO DAILY 90 days Tobacco use date assessed: 01/06/24 Dental Screening Dental Screen Date: 12/16/23 HPI f/u diabetes, HTN HPI Details 79 y/o male presents to f/u diabetes, HTN, chronic conditions. Blood pressure today 120/60, 83p. He is on lisinopril, amlodipine. A1c today 6.2%. He is on metformin 850mg b.i.d. They report ongoing difficulty sleeping. Recent ED visit for confusion/agitation after he had run out of gabapentin for his RLS. Pt had returned to baseline over a couple days. HPI Comments History of Present Illness Details Documentation assistance for Navid Fields MD, was provided by Tong Bolton,? Manpower Development Specialist Manager on 11/12/2024 at 10:39 AM EST. I, Dr. Fields, have read, observed, and verified documentation. [facility] Medical History History of anemia GERD (gastroesophageal reflux disease) Vitamin D deficiency Hypertension Diabetes mellitus Surgical History Hx of endoscopy Hx of colonoscopy Hx of left knee surgery Family History Father Colon cancer Brother No problems noted. Brother No problems noted. Sister No problems noted. Sister Liver cancer Son No problems noted. Daughter No problems noted. Social History Household Members: Spouse Housing: Apartment Are you a primary child care center assistant director to a significant other at home: No Do you presently have visiting nurse or other home services: No Alcohol intake: never Patient Tobacco Use Status: Never used Tobacco e-Cigarette/Vaping Use: Never Used Second Hand Smoke Exposure: No service: No Current occupational status: retired Current occupational exposures/hazards: No Cognitive needs: No Hearing needs: No Vision needs: No Questionnaire Thrive Questionnaire Date Thrive assessed: 08/10/24 I am a: Patient What is your living situation today?: I have a steady place to live Within the past 12 months, did the food you bought not last and you didn't have the money to get more?: Never true Within the past 12 months, did you worry whether your food would run out before you got money to buy more?: Never true Do you have trouble paying for medicines?: No Do you have trouble getting transportation to medical appointments?: No Do you have trouble paying your heating and electricity bill?: No Do you have trouble taking care of your child, family member or friend?: No Do you have trouble with day-to-day activities such as bathing, preparing meals, shopping, managing finances, etc.?: Yes Are you currently unemployed and looking for a job?: No Are you interested in more education?: No Please select the resources that you would like help with: None Currently or been in a relationship where the following occur: No concerns reported THRIVE Score: 0 SERGEY-7 AMB Questionnaire SERGEY-7 Date SERGEY - 7 assessed: 11/11/23 Source: Developed by Drs. Dionicio Jiang, Pat Whalen, Ashish Eisenberg and colleagues, with an educational duncan from [employer]. Review of Systems Const Denies chills, Denies fatigue, Denies fever(s), Denies headache(s) and Denies weakness ENT Denies dizziness and Denies headache(s) Card Denies chest pain, Denies lightheadedness, Denies dyspnea and Denies other (Palpitations) Resp Denies cough, Denies dyspnea, Denies wheezing and Denies other ( shortness of breath) Musc Denies numbness and Denies tingling Neuro Denies dizziness, Denies headache(s), Denies numbness, Denies tingling, Denies paresthesias and Denies weakness Psych Denies anxiety and Denies depression Endo Denies fatigue Aller/Immun Denies wheezing Physical exam (Primary Care) Vital Signs: Last Vital Signs Temp 98.6 F 11/12/24 10:00 Pulse 83 11/12/24 10:00 Resp 14 11/12/24 10:00 BP 120/60 11/12/24 10:00 Pulse Ox 97 11/12/24 10:00 Oxygen Delivery Method Room Air 11/12/24 10:00 BMI result Body Mass Index 28.4 Tobacco/Smoking Status: Tobacco use Status Tobacco use date assessed 01/06/24 11/12/24 10:01 Patient Tobacco Use Status Never used Tobacco 11/12/24 10:01 e-Cigarette/Vaping Use Never Used 11/12/24 10:01 Thrive Assessment: Date of Thrive Assessment Date Thrive assessed 08/10/24 11/12/24 10:01 Currently or been in a relationship where the following occur: No concerns reported Const General: no acute distress and well developed Nutritional Appearance: well nourished Orientation/consciousness: patient oriented x3 [facility]: Yes normocephalic and Yes atraumatic Eyes General: appearance normal, both eyes and all related structures Pupils: Equal, round and reactive pupils present EOM: EOMs intact bilaterally Resp Effort & Inspection: normal respiratory effort Auscultation: clear to auscultation bilaterally Cardio Rate: regular rate Rhythm: regular rhythm Heart sounds: S1 normal heart sound present, S2 normal heart sound present, no gallops, no murmurs and no rubs Neuro General: patient oriented x3 and gait normal Cranial nerves: Yes Equal, round and reactive pupils present Psych Affect: normal affect Results AMB Hemoglobin A1c AMB Hemoglobin A1c 6.2 % Last Edit by Jerzy Hill CMA on 11/12/24 10:26 Coding Level of Care Code Est Pt Level 4 (05380) Diagnoses Diabetes type 2, controlled E11.9 Essential hypertension I10 Altered mental status R41.82 Sleep apnea G47.30 Assessment & Plan Assessment & Plan (1) Diabetes type 2, controlled: Code(s): E11.9 - Type 2 diabetes mellitus without complications Category: Medical Plan: A1c?is?6.2%.??Goal?is?less?than?7.0%. Good?control Continue?current?medication Continue?diabetic?diet (2) Essential hypertension: Code(s): I10 - Essential (primary) hypertension Category: Medical Plan: Blood?pressure?fluctuates.??Pressure?appears?controlled?today.??Goal?is?less?than?140/90 Working?on?her?underlying?causes?such?as stress?and?were?sleep?likely?secondary?to?sleep?apnea Have?tried?other?medications?which?exacerbated?mental?status?changes. Continue?working?on?underlying?causes Also?watch?salt/sodium?diet No?medication?changes?made?today (3) Altered mental status: Code(s): R41.82 - Altered mental status, unspecified Category: Medical Plan: Patient [facility] they a referral to Sleep Medicine prior make a diagnosis dementia. Has now been seen by Neurology/medicine - Reviewed Dr Dawn's note - they are recommending an at home sleep study although he has had difficulty tolerating this in the past. More recently he had been given gabapentin for RLS and this was helping. He ran out and had 1 day without this and upon resumption, becaome confused and agitated and required an ED visit. Workup did not reveal any new changes. Pt returned to baseline over a couple of days. Has also had recommendation to increase Sertraline. 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 Will refer to [facility] to help with medication advice for nighttime aggitation. Also recommend more rest and less stress. F/u sleep Med/Neurology. (4) Sleep apnea: Code(s): G47.30 - Sleep apnea, unspecified Category: Medical Plan: As above Orders: Orders AMB Hemoglobin A1c Today E11.9 - Type 2 diabetes mellitus without complications
[2024-11-12 10:00] VITALS: BP 120/60; PULSE 83; RESP 14; TEMP 37; O2SAT 97; BMI 28.4
== END 2024-11-12 10:41 | disposition home or self-care (01) ==
PROVIDERS: PCP Family Medicine; Visit Provider Family Medicine
DX: E11.9 Type 2 diabetes mellitus without complications (principal); I10 Essential (primary) hypertension; R41.82 Altered mental status, unspecified; G47.30 Sleep apnea, unspecified

== ENCOUNTER → 2024-11-12 09:42 | Outpatient (BNVA) | payer OTHER, SELFPAY | PROVIDERS: PCP Family Medicine; Visit Provider Family Medicine | DX: E11.9 Type 2 diabetes mellitus without complications (principal); I10 Essential (primary) hypertension; R41.82 Altered mental status, unspecified; G47.30 Sleep apnea, unspecified | CPT/HCPCS: 83036; 99212 ==

== ENCOUNTER → 2024-11-20 09:30 | Outpatient (REF) | payer OTHER, SELFPAY | LOC: HO.SL 09:30 | PROVIDERS: PCP Family Medicine; Visit Provider Physician Assistant Medical | DX: G47.19 Other hypersomnia (principal); G47.9 Sleep disorder, unspecified | CPT/HCPCS: 95806 ==

== ENCOUNTER → 2024-11-21 09:43 | Outpatient (BNV) | payer OTHER, SELFPAY | PROVIDERS: PCP Family Medicine; Visit Provider Psychiatry & Neurology Neurology | DX: G47.10 Hypersomnia, unspecified (principal); R06.83 Snoring | CPT/HCPCS: 95806 ==

== ENCOUNTER 2024-12-03 14:37 | Outpatient (AMB) | payer OTHER, SELFPAY ==
--- NOTE | 2024-12-03 14:41 | MHC.OFFVIS ---
Intake Visit Reasons: nocturia Intake Note: New patient presents today for initial visit for nocturia Urology Medication: Blood Thinner: Antibiotic Allergies: PVR:0ml's Budget Assistant Required: No Allergies Benzodiazepines Allergy (Mild, Verified 12/03/24 16:40) Unknown narcotics Allergy (Severe, Uncoded 12/03/24 16:40) memory loss Medication List - Last Reconciled 12/03/24 by Felecia Pisano WINDLASSER- amlodipine 5 mg PO DAILY atorvastatin 10 mg PO DAILY 90 days blood sugar diagnostic (FreeStyle Lite Strips) DX: E11.9, test blood sugar 3 times a day, 90 days blood-glucose meter (FreeStyle Lite Meter kit) DX: E11.9, test blood sugar 3 times a day, duration 999 days cholecalciferol (vitamin D3) (Vitamin D3) 25 mcg PO DAILY 90 days lancets (FreeStyle Lancets) As directed lisinopril 20 mg PO DAILY 90 days metformin 850 mg PO BID 90 days multivitamin with folic acid 400 mcg (Daily-Joselyn (with folic acid)) 1 tab PO DAILY naproxen 500 mg PO BID PRN 14 days omeprazole 40 mg PO DAILY 90 days sertraline 50 mg PO DAILY 90 days HPI Comments Details: Micah is a very pleasant 79-year-old Maori-speaking male patient of Dr. Fields who was accompanied by his children at today's office visit. Has a past medical history of anemia, GERD, vitamin-D deficiency, hypertension, and diabetes mellitus. He presents to the office today as a new patient for nocturia. In discussion with the patient and his family today he reports a longstanding history of nocturia however feels over the last 6-10 months symptoms are worsening. He reports episodes of nocturia up to 10 times per night. Also discusses having followed up with sleep medicine and having had a recent sleep study. In review of patient's chart it appears sleep study was within normal limits. In office urinalysis results reviewed with the patient today. PVR 0 mL. We discussed at length potential causes of nocturia as well as further workup in risks and benefits of these interventions. He also reports urge incontinence he otherwise denies hematuria, dysuria, foul smelling urine, changes to urinary stream, flank pain, fever, and or chills. In assessment of the patient today regarding nocturia he is vague when discussing symptoms of nocturia. He also reports a longstanding history of sleep disorder and finds it difficult to obtain adequate sleep. He does report to be drinking increased amounts of coffee throughout the day however has recently stopped drinking coffee after 15:00 per recommendation of neurology/ sleep medicine. We discussed obtaining retroperitoneal ultrasound for further assessment evaluation as well as PSA. In review of patient's chart it appears PSA 11/06 1.2. A1c 11/27 6.2 PFSH Medical History History of anemia GERD (gastroesophageal reflux disease) Vitamin D deficiency Hypertension Diabetes mellitus Surgical History Hx of endoscopy Hx of colonoscopy Hx of left knee surgery Family History Father Colon cancer Brother No problems noted. Brother No problems noted. Sister No problems noted. Sister Liver cancer Son No problems noted. Daughter No problems noted. Social History Household Members: Spouse Housing: Apartment Are you a primary home health care case manager to a significant other at home: No Do you presently have visiting nurse or other home services: No Alcohol intake: never Patient Tobacco Use Status: Never used Tobacco e-Cigarette/Vaping Use: Never Used Second Hand Smoke Exposure: No service: No Current occupational status: retired Current occupational exposures/hazards: No Cognitive needs: No Hearing needs: No Vision needs: No Review of Systems Eyes Reports no additional complaints ENT Reports no additional complaints Card Reports as per HPI Resp Reports no additional complaints GI Reports as per HPI Reports as per HPI Musc Reports no additional complaints Neuro Reports no additional complaints Psych Reports no additional complaints Endo Reports as per HPI Justino/Lymph Reports as per HPI Physical Exam Const General: cooperative, healthy appearing, comfortable, no acute distress, well developed, alert and awake Orientation/consciousness: patient oriented x3 Limitations: no limitations HEENT Head: Yes normal to inspection, Yes normocephalic and Yes atraumatic Ears: hearing grossly normal bilaterally Eyes General: appearance normal, both eyes and all related structures Neck Neck: Yes normal visual inspection and Yes trachea midline Chest Chest palpation & inspection: normal inspection of the chest Resp Effort & Inspection: normal respiratory effort and able to speak in complete sentences Cardio Rate: regular rate GI Inspection: Yes normal to inspection General: Yes no CVA tenderness Back/Spine/Pelvis Back: no CVA tenderness Skin General skin exam: no rashes or lesions noted Neuro General: patient oriented x3 Extrem General: Yes normal to inspection Psych Appearance: grossly normal and well kempt Mental Status: mental status grossly normal Speech and movement: Normal speech and movement present and Clear speech present Affect: normal affect Attitude: cooperative Thought process: Normal thought process present Thought content: Normal thought content present Insight: Fair insight present (Psych) Judgement: Fair judgement present (Psych) Results AMB Urinalysis, Automated UA Leukoctes 0 Ingrid/uL Last Edit by Bernie Benedict on 12/03/24 14:55 UA Nitrite Negative Last Edit by Bernie Benedict on 12/03/24 14:55 UA Urobilinogen 3.5 mg/dL Last Edit by Bernie Benedict on 12/03/24 14:55 UA Protein 0.3 mg/dL Last Edit by Bernie Benedict on 12/03/24 14:55 UA pH 5.5 Last Edit by Bernie Benedict on 12/03/24 14:55 UA Blood 0 Damion/uL Last Edit by Bernie Benedict on 12/03/24 14:55 UA Specific Hawthorne 1.020 Last Edit by Bernie Benedict on 12/03/24 14:55 UA Ketone Positive Last Edit by Bernie Benedict on 12/03/24 14:55 UA Bilirubin 17 mg/dL Last Edit by Bernie Benedict on 12/03/24 14:55 UA Glucose 0 mg/dL Last Edit by Bernie Benedict on 12/03/24 14:55 Results Reviewed Results Reviewed: Laboratory Last Values Urine pH (Auto) 5.5 12/03/24 14:41 Specific Haw[place]orne (Auto) 1.020 12/03/24 14:41 Urine Protein (Auto) 0.3 mg/dL 12/03/24 14:41 Glucose (UA)(Auto) 0 mg/dL 12/03/24 14:41 Urine Ketones (Auto) Positive 12/03/24 14:41 Urine Blood (Auto) 0 Damion/uL 12/03/24 14:41 Urine Nitrite (Auto) Negative 12/03/24 14:41 Urine Bilirubin (Auto) 17 mg/dL 12/03/24 14:41 Urine Urobilinogen (Auto) 3.5 mg/dL 12/03/24 14:41 Leukocyte Esterase (Auto) 0 Ingrid/uL 12/03/24 14:41 Assessment & Plan Assessment & Plan (1) Nocturia more than twice per night: Code(s): R35.1 - Nocturia Category: Medical (2) Urinary incontinence, urge: Code(s): N39.41 - Urge incontinence Category: Medical Plan In office urinalysis results reviewed with the patient today; as noted above. PVR 0 mL. Recent sleep study results were reviewed with the patient today; as noted above. We discussed at length potential causes of nocturia as well as further treatment options and risks and benefits of these treatment options. We discussed importance of limiting fluids 2-3 hours prior to bed to decrease episodes of nocturia. Will obtain PSA for further assessment evaluation. Will obtain retroperitoneal ultrasound for further assessment evaluation. PHILL offered however deferred. We discussed importance of managing diabetes for improvement in lower urinary tract symptoms as well as overall health and well-being. We discussed possible near future in office cystoscopy and or urodynamics for further assessment evaluation. Follow-up in 1-3 months with imaging and lab to be completed prior; or sooner with any issues, concerns, and or questions. Orders: Orders AMB Post Void Residual by ultrasound Today R35.1 - Nocturia AMB Urinalysis Automated Today Z13.9 - Encounter for screening, unspecified US retroperitoneal comp Today N39.41 - Urge incontinence, R35.1 - Nocturia Prostate Specific Antigen Today N39.41 - Urge incontinence, R35.1 - Nocturia Patient Instructions: The patient had an opportunity to ask questions regarding the treatment plan. All questions were answered. Physical exam, labs, and imaging were discussed and reviewed in detail. As well as risks, benefits, and discussion of treatment choices. No major barriers to understanding were identified. The patient expressed understanding and agreement with the above treatment plan. The patient was made aware they should contact our office by phone for worsening of their current condition, the appearance of new symptoms, or with any questions or concerns. Compliance is encouraged with any medications and follow up testing that is ordered. It is a privilege to be allowed the opportunity to participate in? your urological care.? Again, if you have any questions or concerns If you have any questions or concerns please do not hesitate to contact me. The office is [phone]. This note is constructed using voice recognition software. While every effort has been made to ensure accuracy fitness coach errors may have been included. Yours sincerely, ANTHONY Ma-SUAD Coding Level of Care Code New Pt Level 3 (80611) Diagnoses Nocturia more than twice per night R35.1 Urinary incontinence, urge N39.41
--- OUTSIDE RECORDS SUMMARY | 2024-12-03 17:25 | XMS_ITS ---
Author Organization [facility] Address [address] [place] [address] Care Team Providers Care Steel Cutter Name Role Phone Navid Esposito MD Primary Care Provider Unavail able Cecily Woods Unavailable [phone] Allergies Allergen (clinical drug ingredient) Drug/Non Drug Allergy documented on EMR Reaction Allergy Type Onset Date Status All Narcotics (uncoded) Unknown Allergy Active codeine Codeine Unknown Drug Allergy Active morphine Morphine Unknown Drug Allergy Active REASON FOR VISIT At Risk Footcare, Painful Nail(s) aggravated by shoes and causing difficulty standing/walking., ToeIrritation Medications Medication SIG (Take, Route, Frequency, Duration) Notes Start Date End Date Status Lisinopril 20 MG TAKE 1 TABLET BY ALISHA TH DAILY FOR 90 DAYS Oral for 90 Days Active Gabapentin 100 MG PLEASE SEE ATTACHED FOR DETAILED DIRECTIONS Oral for 15 Days Active Extra Depth Orthopedic Shoes (1 Pair) with Customized Heat Molded Multidensity Innersoles (3 Pair) as directed Dx: NIDDM (E11.9), Hammertoe Foot Deformity (M20.41,M20.42), Preulcerative Skin Lesion(s) (L85.1) 11/27/2024 Active Omeprazole 40 MG Oral for 90 Days Active Sertraline HCl 50 MG Oral for 65 Days Active Atorvastatin Calcium 10 MG TOME ALTAGRACIA TABL ETA POR V A ORAL A DIARIO Oral for 90 Days Active Social History Tobacco Use: Social History Observation Description Date Details (start date - stop date) Never Smoker NA - NA Tobacco use other than smoking: Question Answer Notes Are you an other tobacco user? No Tobacco Control (Standard) Question Answer Notes Tobacco use: Nonsmoker Additional Findings: Tobacco non-user Current no nsmoker AUDIT-C (Standard) Question Answer Notes Did you have a drink containing alcohol in the p ast year? No Points 0 Interpretation Negative Problems Problem Type SNOMED Code ICD Code Onset Dates Problem Status W/U Status Risk Notes Problem Type 2 diabetes mellitus without complication (241272249) Type 2 diabetes mellitus without complication (E11.9) Active confirmed Problem Acquired hammer toe of right foot (090622502537943 5) Other hammer toe(s) (acquired), right foot (M20.41) Active confirmed Problem Acquired hammer toe of left foot (818142970720001 3) Other hammer toe(s) (acquired), left foot (M20.42) Active confirmed Vital Signs Height 5ft6in in 11/27/2024 Weight 156 lbs 11/27/2024 BMI 25.18 kg/m2 11/27/2024 Blood pressure systolic 123 mm Hg 11/27/19 Blood pressure diastolic 80 mm Hg 025 Encounters Encounter Location Date Provider Diagnosis [facility] [address] [address] 11/27/2024 Cecily Peggy Tinea unguium B35.1 ; Other hammer toe(s) (acquired), right foot M20.41 ; Pain in right toe(s) M79.674 ; Pain in left toe(s) M79.675 ; Type 2 diabetes mellitus without complication E11.9 and Other hammer toe(s) (acquired), left foot M20.42 Assessments Encounter Date Diagnosis (ICD Code) Assessment Notes Treatment Notes Treatment Clinical Notes Section Notes 11/27/2024 Tinea unguium (ICD-10 - B35.1) 11/27/2024 Other hammer toe(s) (acquired), right foot (ICD-10 - M20.41) Patient Educated with: DIABETIC FOOT CARE INSTRUCTIONS.p df (DIABETIC FOOT CARE INSTRUCTIONS.p df) 11/27/2024 Pain in right toe(s) (ICD-10 - M79.674) 11/27/2024 Pain in left toe(s) (ICD-10 - M79.675) 11/27/2024 Type 2 diabetes mellitus without complication (ICD-10 - E11.9) 11/27/2024 Other hammer toe(s) (acquired), left foot (ICD-10 - M20.42) Plan Of Treatment Medication Medication Name Sig Start Date Stop Date Notes Extra Depth Orthopedic Shoes (1 Pair) with Customized Heat Molded Multidensity Innersoles (3 Pair) as directed Dx: NIDDM (E11.9), Hammertoe Foot Deformity (M20.41,M20.42), Preulcerative Skin Lesion(s) (L85.1) 11/27/2024 Treatment Notes Assessment Notes Other hammer toe(s) (acquired), right fo ot Patient Educated with: DIABETIC FOOT CARE INSTRUCTIONS.pdf (DIABETIC FOOT CARE INSTRUCTIONS.pdf) Next Appt Details Follow Up: 3 Months, Reason: Provider Name:Cecily andrade, 02/19/2025 09:30:00 AM, [address] [place] [address], [phone], Procedure Notes * Category Sub-Category Detail Notes Debride Nail 6-10 Nail debridement Due to the cl inical pathology outlined in the exam findings, performance of this nail treatment is medically necessary as its management by an unskilled/untrained nonprofessional would put this patients foot and overall health at risk. Therefore, debridement to affected nail(s), as described in exam ( TA, T1, T2, T3, T4, T5, T6, T7, T8, T9, ), was performed exclusively by the physician of record to reduce/remove overall nail length, girth, thickness, subungual debris, and necrotic tissue, by manual and/or electrical means through the use of a nail nipper and/or dremel-type external grinder, to a more viable healthy nail plate or bed tissue 6-10 nails in total. Silver nitrate was used for any petechial bleeding as necessary. Definitive antifungal treatment options, both pharmaceutical and surgical, have been reviewed and discussed with the patient. The patient solely prefers the use of intermittent/as needed professional debridement services for their nail condition and understands the need for additional periodic treatments to maintain effectiveness in symptomatic relief - 40794 Keratoma Treatment Parring or Cutting o f Benign Hyperkeratotic Lesion(s) (-55) 1 Lesion - Due to the at risk nature of the patients medical condition as documented in the exam findings, performance of this keratoderma treatment is medically necessary as its management by an unskilled/untrained nonprofessional would put this patients foot and overall health at risk. Therefore, the benign hyperkeratotic lesion, 1 in total, as stated and described in the exam ( T5 ), was pared, and/or cut utilizing a sterile 15 blade, tissue nippers, and/or power dremel instrumentation by the physician of record - 97292 Progress Notes * Peggy FOXoDOB:[birth year] (79 yo M)Acc No.[id number]:11/27/2024 Progress Notes Patient:?Peggy FOX o Provider:?Cecily Woods DPM :1945???Age:79 Y???Sex:Male Luke e:11/27/2024 Address:[address] [place], [place] [id number] Pcp:Navid Esposito MD Subjective: * Chief Complaints: * ???At Risk FootcarePainful N ail(s) aggravated by shoes and causing difficulty standing/walking.Toe Irritation * HPI: ???At Risk footcare:?Pt States Last PCP Visit:?Date?04/11/2024 ?Translation provided by son. ???Toe pain:?Location:?B/L feet.?Duration:?several years.?Course:?worse.?Aggravated by:?shoes, any pressure.?Treatments:?change in shoes.? * ROS:?General/Constitutional:?Nausea?denies.?Vomiting?denies.?Hunger Thirst?denies.?Loss appetite?denies.?Chills?denies.?Fatigue?denies.?Fever?denies.?Night Sweats?denies.?Unexplained weight loss?denies.?Unexplained weight gain?denies.?HEENTM:?Dentures?denies.?Dizziness?denies.?Glasses/contacts?admits.?Retinopathy?den ies.?Blurred/double vision?denies.?TMJ?denies.?Discharge/drainage?denies.?Implants?denies.?Sore throat?denies.?Dental implants?denies.?Hard of hearing ?denies.?Difficulty chewing/swallowing/speaking?denies.?Nose bleeds?denies.?Sore mouth?denies.?Respiratory:?On O xygen?denies.?Pneumonia/pleurisy?denies.?Bronchitis?denies.?Emphysema?denies.?Co ughing?denies.?Cough blood?denies.?Shortness of breath?denies.?Wheezing?denies.?Cardiovascular:?Pacemaker?denies.?MVP?denies.?WPW?denies.?CHF?denies.?Heart attack?denies.?Septal defect?denies.?Rapid beat?denies.?Chest pain ?denies.?Atrial Fib.?denies.?Murmur/Palpitations?denies.?Gastrointestinal:?Hemorrhoids?admits.?Stomach/Abdominal pain?denies.?Dark blood stool?denies.?Irritable bowel ?denies.?Constipation?admits.?Diarrhea?denies.?Hematology:?Swelling?denies.?Clots?denies.?Varicose Veins?denies.?Bruising?denies.?Bleeding problem?denies.?Genitourinary:?Blood urine?denies.?Frequent/Painfu/urination/bladder control?denies.?Kidney stones?denies.?Infection (UTI)?denies.?Nephropathy?denies.?sex trans dis (STD)?denies.?Prostate?denies.?Musculoskeletal:?Hammertoes?denies.?Bunions?denies.?Back Pain?denies.?Muscle Cramps/ Resting?denies.?Muscle cramps / walking?admits.?Generalized aches and pains?admits.?Weakness?denies.?Integ.:?Martines?denies.?Scars?denies.?Corns/calluses?denies.?Ingrown nails?admits.?Painful nails?denies.?Open Sores?denies.?Rashes?denies.?Neurologic:?Difficulty sleeping?admits.?Brain disorder?denies.?Numbness?denies.?Balance t rouble?admits.?Confusion?admits.?Fainting/blackouts?denies.?Tingling?denies.?Jacob mors?denies.? * Medical History:? * Surgical History:?cataract s urgery * Hospitalization/Major Diagno stic Procedure:?Denies Past Hospitalization * Family History:?Mother: dece ased, diagnosed with Other malignant neoplasm of unspecified site, Diabetic - NIDDM, Unspecified essential hypertension.?Father: , diagnosed with Other malignant neoplasm of unspecified site, Diabetic - NIDDM, Unspecified essential hypertension.? * Social History:?Tobacco Use:?Tobacco use other than smoking?Are you an other tobacco user??No ?Tobacco Control (Standard)?Tobacco use:?Nonsmoker ?Additional Findings: Tobacco non-user?Current nonsmoker ???Drugs/Alcohol:?Drugs?Have you used drugs other than those for medical reasons in the past 12 months??No ???Miscellaneous:?Caffeine: yes, frequency:. ?Children: yes. ?Exercise: no. ?Marital status: . ?Occupation: Retired. ???Drug/Alcohol:?AUDIT-C (Standard)?Did you have a drink containing alcohol in the past year??No ?Points?0 ?Interpretation?Negative * Medications:?TakingLisinopri l 20 MG Tablet TAKE 1 TABLET BY MOUTH DAILY FOR 90 DAYS Oral Sertraline HCl 50 MG Tablet Oral Omeprazole 40 MG Capsule Delayed Release Oral Gabapentin 100 MG Capsule PLEASE SEE ATTACHED FOR DETAILED DIRECTIONS Oral Atorvastatin Calcium 10 MG Tablet TOME ALTAGRACIA TABLETA POR V A ORAL A DIARIO Oral Medication List reviewed and reconciled with the patientTaking Lisinopril 20 MG Tablet TAKE 1 TABLET BY MOUTH DAILY FOR 90 DAYS Oral Taking Sertraline HCl 50 MG Tablet Oral Taking Omeprazole 40 MG Capsule Delayed Release Oral Taking Gabapentin 100 MG Capsule PLEASE SEE ATTACHED FOR DETAILED DIRECTIONS Oral Taking Atorvastatin Calcium 10 MG Tablet TOME ALTAGRACIA TABLETA POR V A ORAL A DIARIO Oral Medication List reviewed and reconciled with the patient * Allergies:?MorphineCodeineAl l Narcoticsyes[Allergies Verified] Objective: * Vitals:?Ht: 5ft6in, Wt: 156, BMI: 25.18, Shoe size: 8, BP: 123/80 mm Hg, BS: 118, Ht-cm: 167.64 cm, Wt-k.76 kg. * ???Past Orders: ???Lab:HEMOGLOBIN A1C (GLYCO HEMOGLOBIN) (Order Date - 10/03/2024) (Collection Date & Time - 10/03/2024 09:26 AM) ? Value Reference Range ?HEMOGLOBIN A1C % (HH) 6.1 * Examination: ???Ophthalmology Referral: ?DIABETES EYE EXAM?Procedure Performed:?Yes ?Date of Exam Performed?05/03/2024 ?Findings of Diabetic Eye Exam:?no retinopathy?Nails: ?NAILS are:?Elongated, overgrown, dystrophic, lytic, greater than 3mm thick, discolored and friable with crumbly malodorous subungual debris, with pain on palpation, TA, T1, T2, T3, T4, T5, T6, T7, T8, T9.?Dermatologic: ?SKIN FINDINGS:?Skin exam reveals Keratotic lesion(s) located at, IPJ, Medial, T5.?Vascular: ?DP PULSES (B):?3/4, B/L.?PT PULSES (B):?3/4, B/L.?CAPILLARY FILL TIME:?immediate, all digits, B/L.?TROPHIC CONDITION-TEXTURE/ELASTICITY/TURGOR/HAIR GROWTH (B):?normal, B/L.?TEMPERTURE GRADIENT (C):?normal, warm to cool, proximal to distal, B/L, B/L.?PIGMENTATION:?normal, B/L.?EDEMA (C):?absent, B/L.?CLAUDICATION (C):?denies, B/L.?REST PAIN:?denies, B/L.?Neurological: ?SENSORY:?Neurological exam reveals intact sensorium, pain sensation normal, vibration sensation intact, pinprick sensation is normal in the lower extremities, 5.07 monofilament test performed at plantar aspects of 5 varied sites per foot shows sensation, normal, B/L, Pt denies, anesthesia, burning, paresthesia, tingling, B/L.?General Examination: ?GENERAL APPEARANCE:?Reveals a pleasant, alert, well nourished, well- developed, well hydrated individual, who demonstrates proper attention to hygiene/body habitus, and is in no acute distress, Pt serves as own historian for office visit today.?ORIENTED:?person, place, and time.?FOOT EXAM:?Lower Extremity Neurological Exam performed:?Yes Date ?Visual exam of foot performed:?Yes ?Date?11/27/2024 ?Footwear Evaluation?Footwear Evaluation performed:?Yes?Orthopedic: ?DIGITAL DEFORMITIES:?Digital contracture, PIPJ, 2-5 B/L, incompl-reducible to push-up test, no over, nor underlapping,?there is?evidence of shoe producing skin irritation.?FOOTWEAR:?worn, non-supportive, shoe gear properties exacerbate patient's foot/toe deformity.? Assessment: * Assessment: 1.?Other hammer toe(s) (acqu ired), right foot - M20.41 (Primary)???Specify :Chronic problem, Worse (4),Rx Management (4)???2.?Tinea unguium - B35.1???3.?Pain in right toe(s) - M79.674???4.?Pain in left toe(s) - M79.675???5.?Type 2 diabetes mellitus without complication - E11.9???6.?Other hammer toe(s) (acquired), left foot - M20.42???Specify :Chronic problem, Worse (4),Rx Management (4)??? Plan: * Treatment: * Procedures:?Debride Nail 6-10:?Nail debridement?Due to the clinical pathology outlined in the exam findings, performance of this nail treatment is medically necessary as its management by an unskilled/untrained nonprofessional would put this patients foot and overall health at risk. Therefore, debridement to affected nail(s), as described in exam ( TA, T1, T2, T3, T4, T5, T6, T7, T8, T9, ), was performed exclusively by the physician of record to reduce/remove overall nail length, girth, thickness, subungual debris, and necrotic tissue, by manual and/or electrical means through the use of a nail nipper and/or dremel-type external grinder, to a more viable healthy nail plate or bed tissue 6- 10 nails in total. Silver nitrate was used for any petechial bleeding as necessary. Definitive antifungal treatment options, both pharmaceutical and surgical, have been reviewed and discussed with the patient. The patient solely prefers the use of intermittent/as needed professional debridement services for their nail condition and understands the need for additional periodic treatments to maintain effectiveness in symptomatic relief - 28140.?Keratoma Treatment:?Parring or Cutting of Benign Hyperkeratotic Lesion(s)?(-55) 1 Lesion - Due to the at risk nature of the patients medical condition as documented in the exam findings, performance of this keratoderma treatment is medically necessary as its management by an unskilled/untrained nonprofessional would put this patients foot and overall health at risk. Therefore, the benign hyperkeratotic lesion, 1 in total, as stated and described in the exam ( T5 ), was pared, and/or cut utilizing a sterile 15 blade, tissue nippers, and/or power dremel instrumentation by the physician of record - 39039.? * Procedure Codes:?36280 DEBRI DE NAIL, 6 OR MORE, Modifiers: XS 17550 TRIM SKIN LESION, Modifiers: XS * Preventive Medicine:? ??Counseling:?Discussion:?-04: Office or other outpatient visit for the evaluation and management of a new patient, which required a medically appropriate history and/or examination and MODERATE level of DECISION MAKING for: 1 OR MORE CHRONIC PROBLEM(S) THATS WORSENING, 2 STABLE CHRONIC PROBLEMS, A NEWLY DIAGNOSED PROBLEM WITH UNCERTAIN PROGNOSIS, AN ACUTE COMPLICATED INJURY WITH MULTIPLE TREATMENT OPTIONS, OR AN ACUTE PROBLEM WITH ACCOMPANYING SYSTEMIC SYMPTOMS, THAT POSE(S) A MODERATE RISK OF MORBIDITY. THIS CONDITION MAY ALSO INCLUDE RX DRUG MANAGEMENT, OR A DECISON FOR MINOR SURGERY. The visit on the day of the encounter encompassed interpreting the data and educating the patient as to the nature of their condition, treatment options available according to their individual PMH, meds, allergies, and overall health/living conditions, as well as any potential risks or complications that may occur from a failure to adhere to, and participate in, the recommended course of therapy. The discussion included a complete verbal, and/or written explanation of the examination results, any x-rays taken, the proposed diagnosis, and outline of the treatment plan. A schedule for future care needs was also explained. The patient verbalized an understanding of the instructions at this time and agreed to be an active participant in their treatment. If the patient should think of any questions or concerns after the visit, I have encouraged the patient to call the office.?Digital Surgery:?Digital surgery was discussed with the patient, We elected to try conservative treatment at the present time, due to the patients medical history and increased asssociated post-operative risks.?Digital Treatment:?HT- I explained to the patient the possible etiologies of Hammertoes, including genetics/foot type/shoegear/activity level/exercise routine and the risks/benefits of all the different treatment options for their pain including: No treatment at all, Rest, Ice, New/supportive/wider/deeper Shoegear, Digital Padding/Strapping/Taping/Bracing/Gel protective sleeves, Foot/Ankle AFO Bracing, Stretching exercises, Deep Tissue Massage, Arch support/shoe inserts with splay metatarsal padding, and Custom orthoses. I insisted that any digital devices be removed daily and not worn overnight for safety. The patient is to carefully examine the toes daily for any skin irritation while using any splinting or padding device. The advantages and disadvantages of each option were discussed and the patients questions re: shoegear, padding, custom vs prefabricated inserts, activity level, and consistency in home treatment regimens for optimal success were answered to their verbally confirmed satisfaction.?Shoe Gear Counseling:?SHOE Rx - The patient was counseled in great detail on their muscoloskeletal foot and toe deformities which coincided with the dermatological presentations visualized on exam. We discussed how their deformities put the integrity of their feet at risk for potential pedal complications which makes the accomidative diabetic shoes and cutomizable inserts medically necessary. We discussed the different shoe and insert treatment types and options, as well as the important advantages for adhering to regularly wearing these accomidative devices daily. The patient was made aware of the fact that a failure to abide by these recommedations may be deleterious to their foot health as they are able to prevent many pedal complications such as skin irritation, skin ulceration, infection, and even loss of toe/foot/leg/or life. Time was also spent with the patient dispensing and discussing proper diabetic footcare techniques including daily skin moisturization, daily foot inspection for any interruption in skin integrity including open lesions, or sign of infection such as redness/malodor/drainage/swelling. Also discussed and recommended were procedures regarding daily shoe inspection for the presence of internal foreign bodies as well as any visualized irregular shoe or insert wear. Patient questions re: shoes, inserts, and self foot inspections were answered to their satisfaction as the patient verbally confirmed a full understanding of the above information. A Rx for Extra Depth Orthopedic Shoes with 3 pair of custom heat-molded inserts was dispensed.? ??Screening/Special Tests:?Fall Risk?Screening:?No falls in the past year ?FALLS: Screening for Future Fall Risk?Have you had any falls with injury in the past year??No * Follow Up:?3 Months * Images: * Sign off status: Completed true * Provider:?Cecily Woods DPM Date:? Generated for Prem parada/Simona/Alan on:?12/03/2024 05:25 PM EST History and Physical Notes * HPI (History of Present Illness) Category Sub-Category Detail Notes Category Not es Toe pain Location: B/L feet Duration: several years Course: worse Aggravated by: shoes, any pressure Treatments: change in shoes At Risk footcare Pt States Last PCP Visit: Date: 04/11/2024 Translation provided by son Examination Category Sub-Category Detail Notes Category Not es Neurological SENSORY: Neurological exa m reveals intact sensorium, pain sensation normal, vibration sensation intact, pinprick sensation is normal in the lower extremities, 5.07 monofilament test performed at plantar aspects of 5 varied sites per foot shows sensation, normal, B/L, Pt denies, anesthesia, burning, paresthesia, tingling, B/L Dermatologic SKIN FINDINGS: Skin exam reveal s Keratotic lesion(s) located at, IPJ, Medial, T5 Orthopedic FOOTWEAR: worn, non-suppor tive, shoe gear properties exacerbate patient's foot/toe deformity DIGITAL DEFORMITIES: Digital contracture , PIPJ, 2-5 B/L, incompl-reducible to push-up test, no over, nor underlapping, there is evidence of shoe producing skin irritation General Examination GENERAL APPEARANCE: Reveals a pleasant, alert, well nourished, well-developed, well hydrated individual, who demonstrates proper attention to hygiene/body habitus, and is in no acute distress, Pt serves as own historian for office visit today FOOT EXAM: Lower Extremity Neurological Exa m performed:: Yes Date Visual exam of foot performed:: Yes Date: 11/27/2024 ORIENTED: person, place, and t razia Footwear Evaluation Footwear Evaluation performe d:: Yes Ophthalmology Referral DIABETES EYE EXAM Procedure Perform ed:: Yes ?Date of Exam Performed: 05/03/2024 Findings of Diabetic Eye Exam:: no retin opathy Vascular DP PULSES (B): 3/4, B/L PT PULSES (B): 3/4, B/L CAPILLARY FILL TIME: immediate, all digi ts, B/L TEMPERTURE GRADIENT (C): normal, warm to cool, proximal to distal, B/L, B/L TROPHIC CONDITION-TEXTURE/ELASTICITY/TURGOR/HAIR GROWTH (B): normal, B/L EDEMA (C): absent, B/L CLAUDICATION (C): denies, B/L REST PAIN: denies, B/L PIGMENTATION: normal, B/L Nails NAILS are: Elongated, overg rown, dystrophic, lytic, greater than 3mm thick, discolored and friable with crumbly malodorous subungual debris, with pain on palpation, TA, T1, T2, T3, T4, T5, T6, T7, T8, T9
--- OUTSIDE RECORDS SUMMARY | 2024-12-03 17:26 | XMS_ITS ---
Author Organization [facility] Address [address] [place] [address] Care Team Providers Care Division Sales Manager Name Role Phone Navid Esposito MD Primary Care Provider Unavail able Cecily Woods Unavailable [phone] Maile Puckett Unavailable [phone] REASON FOR VISIT Cancel Encounters Encounter Location Date Provider Diagnosis [address] [address] 10/09/2024 Maile Puckett Plan Of Treatment Next Appt Details Provider Name:Cecily andrade, 02/19/2025 09:30:00 AM, [address] [place] [address], [phone], Progress Notes * Peggy FOXoDOB:[birth year] (79 yo M)Acc No.[id number]:10/09/2024 Patient:?Peggy FOX :1945???Age:79 Y???Sex:Male Address:[address] [facility], [place], [address] * true * Date:? Generated for Printi ng/Simona/eTransmitting on:?12/03/2024 05:25 PM EST
--- OUTSIDE RECORDS SUMMARY | 2024-12-03 17:26 | XMS_ITS | Patient Health Record ---
Author Organization [facility] Cristopher phu [place] Address [address] [place] [address] Care Team Providers Care Benzene Operator Name Role Phone Vaibhav GARCES, Navid Primary Care Provider Unavail able Cecily Woods Unavailable [phone] PuckettMaile Unavailable [phone] Allergies Allergen (clinical drug ingredient) Drug/Non Drug Allergy documented on EMR Reaction Allergy Type Onset Date Status All Narcotics (uncoded) Unknown Allergy Active codeine Codeine Unknown Drug Allergy Active morphine Morphine Unknown Drug Allergy Active Results Component Value Reference Range Notes HEMOGLOBIN A1C (GLYCOHEMOGLO BIN) Reviewed date:11/27/2024 09:26:44 AM Interpretation: Performing Lab: Notes/Report: HEMOGLOBIN A1C % (HH) 6.1 Reason For Referral No Information Medications Medication SIG (Take, Route, Frequency, Duration) Notes Start Date End Date Status Lisinopril 20 MG TAKE 1 TABLET BY ALISHA TH DAILY FOR 90 DAYS Oral for 90 Days Active Atorvastatin Calcium 10 MG TOME ALTAGRACIA TABL ETA POR V A ORAL A DIARIO Oral for 90 Days Active Gabapentin 100 [...] 50 MG Oral for 65 Days Active Social History Tobacco Use: Social [...] Problem Status W/U Status Risk Notes Problem Acquired hammer toe of right foot (785891346110684 5) Other hammer toe(s) (acquired), right foot (M20.41) Active confirmed Problem Acquired hammer toe of left foot (182045696791086 3) Other hammer toe(s) (acquired), left foot (M20.42) Active confirmed Problem Type 2 diabetes mellitus without complication (092614949) Type 2 diabetes mellitus without complication (E11.9) Active confirmed Vital Signs Blood pressure diastolic 80 mm Hg 11/27/2024 Height 5ft6in in 11/27/2024 Blood pressure systolic 123 mm Hg 11/27/2024 Weight 156 lbs 11/27/2024 BMI 25.18 kg/m2 11/27/2024 Encounters Encounter Location Date [facility] [address] [facility]/27/[facility]24 Cecily Peggy Tinea unguium B35.1 ; Other hammer toe(s) (acquired), right foot M20.41 ; Pain in right toe(s) M79.674 ; Pain in left toe(s) M79.675 ; Type 2 diabetes mellitus without complication E11.9 and Other hammer toe(s) (acquired), left foot M20.42 [facility] [address] 08/16/2024 Maile Puckett [address] [address] 10/09/2024 Maile Puckett Assessments Encounter Date Diagnosis (ICD Code) Assessment Notes Treatment Notes Treatment Clinical Notes Section Notes 11/27/2024 Other hammer toe(s) (acquired), right foot (ICD-10 - M20.41) Patient Educated with: DIABETIC FOOT CARE INSTRUCTIONS.p df (DIABETIC FOOT CARE INSTRUCTIONS.p df) 11/27/2024 Tinea unguium (ICD-10 - B35.1) 11/27/2024 Pain in right toe(s) (ICD-10 - M79.674) 11/27/2024 Pain in left toe(s) (ICD-10 - M79.675) 11/27/2024 Type 2 diabetes mellitus without complication (ICD-10 - E11.9) 11/27/2024 Other hammer toe(s) (acquired), left foot (ICD-10 - M20.42) Plan Of Treatment Next Appt Details Provider Name:Cecily andrade, 02/19/2025 09:30:00 AM, [address] [place] [address], [place], [address], Insurance Providers Payer Name Payer Address Payer Phone Subscriber Number Group Number Insured Name Patient Relationship to Insured Coverage Start Date Coverage End Date [facility] CCA S[employer] Claims [address] [facility] [place] [phone] [id number] Micah Mitchell Self - patient is the insured Medical (General) History Medical History History ICD Code Anxiety Depression Diabetic High Blood Pressure Reflux ( GERD) Joint implants/screws Surgical History Surgery Date(Month/Year) cataract surgery
--- OUTSIDE RECORDS SUMMARY | 2024-12-03 17:26 | XMS_ITS ---
Author Organization [facility] Address [address] [place] [address] Care Team Providers Care Diesel Dinkey Engineer Name Role Phone Vaibhav GARCES, Navid Primary Care Provider Unavail able Cecily Woods Unavailable [phone] Maile Puckett Unavailable [phone] Encounters Encounter Location Date Provider Diagnosis [address] [address] 10/15/2024 Maile Puckett Plan Of Treatment Next Appt Details Provider Name:Cecily andrade, 02/19/2025 09:30:00 AM, [address] [place] [address], [address], Progress Notes * Peggy FOXoDOB:[birth year] (79 yo M)Acc No.[id number]:10/15/2024 Progress Notes Patient:?Peggy FOX Provider:?Maile Puckett DPM :1945???Age:79 Y???Sex:Male Luke e:10/15/2024 Address:[address] [facility], [address], [place], [place] Pcp:Navid Esposito MD Subjective: * Chief Complaints: * ??? * Medical History:? Objective: * Vitals:? Assessment: Plan: * Treatment: * Images: * The named appointment provid er may or may not be the originator of this progress note, and it is not deemed complete until electronically signed by the appointment provider. Sign off status: Pending * Provider:?Maile Puckett DPM Date:?0 10/15/2024 Generated for Prem parada/Simona/Alan on:?12/03/2024 05:25 PM EST
== END 2024-12-03 15:30 | disposition home or self-care (01) ==
PROVIDERS: PCP Family Medicine; Visit Provider Nurse Practitioner Family
DX: R35.1 Nocturia (principal); N39.41 Urge incontinence; Z13.9 Encounter for screening, unspecified
CPT/HCPCS: 99203

== ENCOUNTER → 2024-12-03 14:37 | Outpatient (BNVA) | payer OTHER, SELFPAY | PROVIDERS: PCP Family Medicine; Visit Provider Nurse Practitioner Family | DX: N39.41 Urge incontinence (principal); R35.1 Nocturia | CPT/HCPCS: 81003; 99202 ==

== ENCOUNTER 2024-12-05 08:04 | Outpatient (REF) | payer OTHER, SELFPAY ==
--- OUTSIDE RECORDS SUMMARY | 2024-12-05 08:17 | XMS_ITS ---
[facility] Organization [facility] Address [address] [place] [address] Care Team Providers Care Printing Pressman Name Role Phone Vaibhav GARCES, Navid Primary Care Provider Unavail able Cecily Woods Unavailable [phone] Maile Puckett Unavailable [phone] Encounters Encounter Location Date Provider Diagnosis [address] [address] 10/15/2024 Maile Puckett Plan Of Treatment Next Appt Details Provider Name:Cecily andrade, 02/19/2025 09:30:00 AM, [address] [place] [address], [address], Progress Notes * Nick FOXOB:[birth year] (79 yo M)Acc No.[id number]:10/15/2024 Progress Notes Patient:?Peggy FOX Provider:?Maile Puckett DPM :1945???Age:79 Y???Sex:Male Luke e:10/15/2024 Address:[address] [facility] [address], [place], [place] Pcp:Navid Esposito MD Subjective: * Chief Complaints: [...] DPM Date:?0 10/15/2024 Generated for Prem parada/Simona/Alan on:?12/05/2024 08:17 AM EST
--- OUTSIDE RECORDS SUMMARY | 2024-12-05 08:17 | XMS_ITS | Patient Health Record ---
Author Organization [facility] Cristopher phu [place] Address [address] [place] [address] Care Team Providers Care Inventory Management Specialist Name Role Phone Vaibhav GARCES, Navid Primary Care Provider Unavail able Cecily Woods Unavailable [phone] PuckettMaile Unavailable [phone] Allergies Allergen (clinical drug ingredient) Drug/Non Drug [...] Problem Acquired hammer toe of right foot (442393367845759 5) Other hammer toe(s) (acquired), right foot (M20.41) Active confirmed Problem Acquired hammer toe of left foot (190739765936410 3) Other hammer toe(s) (acquired), left foot (M20.42) Active confirmed Problem Type 2 diabetes mellitus without complication (081735458) Type 2 diabetes mellitus without complication (E11.9) Active confirmed Vital Signs Blood pressure diastolic 80 mm Hg 11/27/2024 Height 5ft6in in 11/27/2024 Blood pressure systolic 123 mm Hg 11/27/2024 Weight 156 lbs 11/27/2024 BMI 25.18 kg/m2 11/27/2024 Encounters Encounter Location Date [facility] [address] 11/27/2024 Cecily Peggy Tinea unguium B35.1 ; Other hammer toe(s) (acquired), right foot M20.41 ; Pain in right toe(s) M79.674 ; Pain in left toe(s) M79.675 ; Type 2 diabetes mellitus without complication E11.9 and Other hammer toe(s) (acquired), left foot M20.42 [facility] [address] 08/16/2024 Maile Puckett [address] [address] 10/09/2024 Maile Puckett Assessments Encounter Date Diagnosis [...] Details Provider Name:Cecily andrade, 02/19/2025 09:30:00 AM, [address] [place] [address], [place], [address], Insurance Providers Payer Name Payer Address Payer Phone Subscriber Number Group Number Insured Name Patient Relationship to Insured Coverage Start Date Coverage End Date [facility] [employer] S[employer] Claims [address] [facility] [place] [phone] [id number] Micah Mitchell Self - patient is the insured Medical (General) History Medical History History ICD Code Anxiety Depression Diabetic High Blood Pressure Reflux ( GERD) Joint implants/screws Surgical History Surgery Date(Month/Year) cataract surgery
--- OUTSIDE RECORDS SUMMARY | 2024-12-05 08:17 | XMS_ITS ---
Author Organization [facility] Address [address] [place] [address] Care Team Providers Care Press Machine Operator Name Role Phone Navid Esposito MD Primary Care Provider Unavail able Cecily Woods Unavailable [phone] Maile Puckett Unavailable [phone] REASON FOR VISIT Cancel Encounters Encounter Location Date Provider Diagnosis [address] [address] 10/09/2024 Maile Puckett Plan Of Treatment Next Appt Details Provider Name:Cecily andrade, 02/19/2025 09:30:00 AM, [address] [place] [address], [address], Progress Notes * Nick FOXOB:[birth year] (79 yo M)Acc No.[id number]:10/09/2024 Patient:?Peggy FOX :1945???Age:79 Y???Sex:Male Address:[address] [place] [address], [address], [place], [address] * true * Date:? Generated for Printi ng/Simona/eTransmitting on:?12/05/2024 08:17 AM EST
--- OUTSIDE RECORDS SUMMARY | 2024-12-05 08:17 | XMS_ITS ---
Author Organization [facility] Address [address] [place] [address] Care Team Providers Care Dry Cleaning Supervisor Name Role Phone Navid Esposito MD Primary Care Provider Unavail able Cecily Woods Unavailable [phone] Allergies Allergen (clinical drug ingredient) Drug/Non Drug [...] Problem Type 2 diabetes mellitus without complication (913809647) Type 2 diabetes mellitus without complication (E11.9) Active confirmed Problem Acquired hammer toe of right foot (553674589697980 5) Other hammer toe(s) (acquired), right foot (M20.41) Active confirmed Problem Acquired hammer toe of left foot (862837198982299 3) Other hammer toe(s) (acquired), left foot (M20.42) Active confirmed Vital Signs Height 5ft6in in 11/27/2024 Weight 156 lbs 11/27/2024 BMI 25.18 kg/m2 11/27/2024 Blood pressure systolic 123 mm Hg 11/27/19 Blood pressure diastolic 80 mm Hg 025 Encounters Encounter Location Date Provider Diagnosis [facility] [address] [address] 11/27/2024 Cecily Peggy Tinea unguium B35.1 ; [...] Reason: Provider Name:Cecily andrade, 02/19/2025 09:30:00 AM, [address] [place] [address], [address], Procedure Notes * Category Sub-Category Detail Notes [...] use of a nail nipper and/or dremel-type meat grinder, to a more viable healthy nail [...] to maintain effectiveness in symptomatic relief - 37020 Keratoma Treatment Parring or Cutting o f [...] instrumentation by the physician of record - 30872 Progress Notes * Peggy FOXoDOB:[birth year] (79 yo M)Acc No.[id number]:11/27/2024 Progress Notes Patient:?Peggy FOX o Provider:?Cecily Woods DPM :1945???Age:79 Y???Sex:Male Luke e:11/27/2024 Address:[address] [place], [place] [address] Pcp:Navid Esposito MD Subjective: * Chief Complaints: [...] use of a nail nipper and/or dremel-type meat grinder, to a more viable healthy nail [...] to maintain effectiveness in symptomatic relief - 33295.?Keratoma Treatment:?Parring or Cutting of Benign Hyperkeratotic Lesion(s)?(-55) [...] instrumentation by the physician of record - 35343.? * Procedure Codes:?53293 DEBRI DE NAIL, 6 OR MORE, Modifiers: XS 59349 TRIM SKIN LESION, Modifiers: XS * Preventive [...] Woods DPM Date:? Generated for Prem parada/Simona/Alan on:?12/05/2024 08:17 AM EST History and Physical Notes * HPI [...]
[2024-12-05 09:45] LABS: Prostate Specific Antigen 1.26 ng/mL (<0.05-4.0)
== END 2024-12-05 08:05 | disposition home or self-care (01) ==
LOC: HO.LAB 08:04
PROVIDERS: PCP Family Medicine; Visit Provider Nurse Practitioner Family
DX: R35.1 Nocturia (principal); N39.41 Urge incontinence; Z12.5 Encounter for screening for malignant neoplasm of prostate
CPT/HCPCS: 36415; 84153

== ENCOUNTER 2024-12-31 10:02 | Outpatient (AMB) | payer OTHER, SELFPAY ==
--- NOTE | 2024-12-31 10:06 | A.OFFVIS_ITS ---
Vital Signs 12/31/24 10:08 Height 5 ft 2 in Weight 154 lb BMI 28.2 BP 140/80 H Blood Pressure Location Rt brachial Pulse 80 Pulse Source Pulse Oximeter Pulse Oximetry (%) 93 Oxygen Delivery Method Room Air Intake Visit Reasons: 3 mo follow up Intake Note: Patient presents for 3 month follow up for DIONNE. Sleep study in chart done on 11/21/24. Stone Fabricator Required: Yes Stone Fabricator Services: Stone Fabricator Offered & Declined Accompanied by: Self / Same As Patient Allergies Benzodiazepines Allergy (Mild, Verified 12/31/24 10:11) Unknown narcotics Allergy (Severe, Uncoded 12/03/24 16:40) memory loss HPI Comments Details: Micah is a very pleasant 79-year-old Greenlandic-speaking male patient of Dr. Fields who was accompanied by his daughter today. Interim history: ED visit in Nov 06, 2024, AMS due to fall and bumped his head in the bathroom, he denied loc, and had a full work up at the ED. He was altered and saying unrecognizable words, he also had a UTI, and felt sedated due to Gabapentin. In assessment of the patient today regarding nocturia he is vague when discussing symptoms of nocturia. He reports a longstanding history of sleep disorder and finds it difficult to obtain adequate sleep as he was getting up around 5-10x a night, now improved. In review of patient's chart it appears PSA 11/06 1.2. A1c 11/27 6.2, and patient did not complete retroperitoneal U/S given the decrease in consumption of caffeine and improvement of symptoms of nocturia, now going to the bathrrom 2-3x per night. He continues to have excessive daytime fatigue and sleep patterns are reversed, sleeps more through the day. The family is now keeping him busy during the day, not allowing him to sleep during the day and his night time sleep hours are more structured with 10mg of melatonin daily at bedtime. He goes to bed at 10pm and gets up at 1130pm, then goes to the bathroom, he sleeps for another 3 hours then gets up for the day. His memory at baseline is more forgetful with word finding and mood seems stable per daughter it has improved since increasing the citalprma to 50mg. He goes for a walk daily with his , and started to see some improvement with PT 2x a week, and will start OT next week. He denies constipation, and 1 BM daily now with miralax use. He denies V/A Hallucinations since the last episode of gabapentin which caused him to be altered and fall. MMSE was 18 today, language, recall and attention. [facility] Medical History History of anemia GERD (gastroesophageal reflux disease) Vitamin D deficiency Hypertension Diabetes mellitus Surgical History Hx of endoscopy Hx of colonoscopy Hx of left knee surgery Family History Father Colon cancer Brother No problems noted. Brother No problems noted. Sister No problems noted. Sister Liver cancer Son No problems noted. Daughter No problems noted. Social History Household Members: Spouse Housing: Apartment Are you a primary after school caregiver to a significant other at home: No Do you presently have visiting nurse or other home services: No Alcohol intake: never Patient Tobacco Use Status: Never used Tobacco e-Cigarette/Vaping Use: Never Used Second Hand Smoke Exposure: No service: No Current occupational status: retired Current occupational exposures/hazards: No Cognitive needs: No Hearing needs: No Vision needs: No Physical Exam Vital Signs: Last Vital Signs Pulse 80 12/31/24 10:08 BP 140/80 H 12/31/24 10:08 Pulse Ox 93 12/31/24 10:08 Oxygen Delivery Method Room Air 12/31/24 10:08 BMI result Body Mass Index 28.2 Const General: no acute distress Orientation/consciousness: patient oriented x3 HEENT Other: Mallampati stage 4 Resp Effort & Inspection: normal respiratory effort and able to speak in complete sentences Auscultation: clear to auscultation bilaterally Cardio Rate: regular rate Rhythm: regular rhythm Neuro Other: No rest tremor. Oral / tongue tremor. Decreased blink response, blunt facial expression. Finger-Nose- BUE mild kinetic tremor L>R tremor. FFM- intact. Mild decreased LLE foot taps. Gait- stoop, decreased left arm swing, shuffling gait. General: patient oriented x3 Gait exam (Neuro): Assistive device used (cane used to ambulate) Motor exam (neuro): 5/5 motor strength present throughout Psych Mental Status: mental status grossly normal Speech and movement: Clear speech present Attitude: cooperative Orientation What is the (year) (season) (date) (day) (month)?: season, day and month Where are we (state) (county) (town or city) (hospital) (floor)?: state, town or city and floor Registration Name of 3 unrelated objects clearly and slowly, then ask patient to repeat all 3 of them. (1st repeat determines score. Make sure they can repeat all three): object 1, object 2 and object 3 Recall Ask patient to repeat the 3 items from question #3.: object 1, object 2 and object 3 Language Show patient a wristwatch & ask what it is. Repeat for pencil.: watch and pencil Ask the patient to repeat the phrase 'No ifs, ands, or buts' after you.: incorrect Ask the patient to 'take a piece of paper with their right hand' 'fold paper in half' 'place paper on floor': take paper in right hand, fold paper in half and place paper on floor Print the sentence 'CLOSE YOUR EYES' on a piece. If patient actually closes eyes then score.: followed written direction Score Score: 18 Results Reviewed Results Reviewed: Microalbuminurea Ketones present 11/06/2024 - ED Note [facility] AMS and EKG NSR with CTscans and complete workup Labs abnormal high Lactate levels. Assessment & Plan Assessment & Plan (1) Sleep disorder, unspecified: Comment: Snoring, sleep maintenance difficulties, sleep initiation difficulties, REM type sleep behaviors, excessive daytime sleepiness. Code(s): G47.9 - Sleep disorder, unspecified Category: Medical (2) Excessive daytime sleepiness: Code(s): G47.19 - Other hypersomnia Category: Medical (3) Cognitive decline: Code(s): R41.89 - Other symptoms and signs involving cognitive functions and awareness Category: Medical Plan Sleep disturbances and Insomnia :Home Sleep Study was normal Sleep Hygiene provided, Limit caffeine 6 hours prior to bed, no fluids 2 hours prior to bed. MMSE was 18 today? MRI with Neuroquant / LBD / Alzeihmers Dementia. Nocturia f/u with Urology for Peritoneal US Discontinued Gabapentin d/t side effects of drugs sedation and falls. Continue Metformin 850mg PO BID as directed by PCP Continue Citalopram 50mg PO daily for depressed, mood. Orders: Orders MR head/brain wo con Today R41.89 - Other symptoms and signs involving cognitive functions and awareness Patient Instructions: Sleep Hygiene provided: set a scheduled bedtime and wake time to help regulate the circadian rhythm and balance the release of pituitary hormones. Sleep in a dark room, temperatures below 68 degrees, and no devices n bed. Limit ca ffeinated products 6 hours prior to bed, and limit fluids 2-4 hours prior to bed. Gentle night yoga, diffusing essential oils, and playing soft music can be relaxing. Coding Level of Care Code Est Pt Level 4 (17726) Diagnoses Sleep disorder, unspecified G47.9 Excessive daytime sleepiness G47.19 Cognitive decline R41.89 Time Spent (min) 30 Comment Improving
[2024-12-31 10:08] VITALS: BP 140/80; PULSE 80; O2SAT 93; BMI 28.2
--- OUTSIDE RECORDS SUMMARY | 2024-12-31 11:10 | XMS_ITS | Patient Health Record ---
Author Organization [facility] Address [address] [place] [address] Care Team Providers Care Mill Work Name Role Phone Vaibhav GARCES, Navid Primary Care Provider Unavail able Cecily Woods Unavailable [phone] PuckettMaile Unavailable [phone] Allergies Allergen (clinical drug ingredient) Drug/Non Drug [...] Problem Acquired hammer toe of right foot (268182603060682 5) Other hammer toe(s) (acquired), right foot (M20.41) Active confirmed Problem Acquired hammer toe of left foot (221108920024025 3) Other hammer toe(s) (acquired), left foot (M20.42) Active confirmed Problem Type 2 diabetes mellitus without complication (845826733) Type 2 diabetes mellitus without complication (E11.9) Active confirmed Vital Signs Blood pressure diastolic 80 mm Hg 11/27/2024 Height 5ft6in in 11/27/2024 Blood pressure systolic 123 mm Hg 11/27/2024 Weight 156 lbs 11/27/2024 BMI 25.18 kg/m2 11/27/2024 Encounters Encounter Location Date [facility] [address] 11/27/2024 Cecily Peggy Tinea unguium B35.1 ; Other hammer toe(s) (acquired), right foot M20.41 ; Pain in right toe(s) M79.674 ; Pain in left toe(s) M79.675 ; Type 2 diabetes mellitus without complication E11.9 and Other hammer toe(s) (acquired), left foot M20.[address] [facility] [address] 08/16/2024 Maile Puckett [address] [address] 10/09/2024 Maile Puckett Assessments Encounter Date Diagnosis [...] Details Provider Name:Cecily andrade, 02/19/2025 09:30:00 AM, [address] [place] [address], [place], [address], Insurance Providers Payer Name Payer Address Payer Phone Subscriber Number Group Number Insured Name Patient Relationship to Insured Coverage Start Date Coverage End Date [facility] CCA SCO Claims [address] [facility] [place] [phone] [id number] Micah Mitchell Self - patient is the insured Medical (General) History Medical History History ICD Code Anxiety Depression Diabetic High Blood Pressure Reflux ( GERD) Joint implants/screws Surgical History Surgery Date(Month/Year) cataract surgery
--- OUTSIDE RECORDS SUMMARY | 2024-12-31 11:10 | XMS_ITS ---
Author Organization [facility] Address [address] [place] [address] Care Team Providers Care Sales Floor Team Member Name Role Phone Navid Esposito MD Primary Care Provider Unavail able Cecily Woods Unavailable [phone] Maile Puckett Unavailable [phone] REASON FOR VISIT Cancel Encounters Encounter Location Date Provider Diagnosis [address] [address] 10/09/2024 Maile Puckett Plan Of Treatment Next Appt Details Provider Name:Cecily andrade, 02/19/2025 09:30:00 AM, [address] [place] [address], [address], Progress Notes * Nick FOXOB:[birth year] (79 yo M)Acc No.[id number]:10/09/2024 Patient:?Peggy FOX :1945???Age:79 Y???Sex:Male Address:[address] [place] [address], [address], [place], [address] * true * Date:? Generated for Printi ng/Faolivierg/eTransmitting on:?12/31/2024 11:10 AM EDT
--- OUTSIDE RECORDS SUMMARY | 2024-12-31 11:10 | XMS_ITS ---
Author Organization [facility] Address [address] [place] [address] Care Team Providers Care Tool Design Checker Name Role Phone Navid Esposito MD Primary Care Provider Unavail able Cecily Woods Unavailable [phone] Allergies Allergen (clinical drug ingredient) Drug/Non Drug [...] Problem Type 2 diabetes mellitus without complication (132715484) Type 2 diabetes mellitus without complication (E11.9) Active confirmed Problem Acquired hammer toe of right foot (114084811333429 5) Other hammer toe(s) (acquired), right foot (M20.41) Active confirmed Problem Acquired hammer toe of left foot (185920118915600 3) Other hammer toe(s) (acquired), left foot (M20.42) Active confirmed Vital Signs Height 5ft6in in 11/27/2024 Weight 156 lbs 11/27/2024 BMI 25.18 kg/m2 11/27/2024 Blood pressure systolic 123 mm Hg 11/27/19 Blood pressure diastolic 80 mm Hg 025 Encounters Encounter Location Date Provider Diagnosis [facility] [address] [address] 11/27/2024 Cecily Peggy Tinea unguium B35.1 ; [...] Reason: Provider Name:Cecily andrade, 02/19/2025 09:30:00 AM, [address] [place] [address], [address], Procedure Notes * Category Sub-Category Detail Notes [...] use of a nail nipper and/or dremel-type notch grinder, to a more viable healthy nail [...] to maintain effectiveness in symptomatic relief - 69159 Keratoma Treatment Parring or Cutting o f [...] instrumentation by the physician of record - 33011 Progress Notes * Peggy FOXoDOB:[birth year] (79 yo M)Acc No.[id number]:11/27/2024 Progress Notes Patient:?Peggy FOX o Provider:?Cecily Woods DPM :1945???Age:79 Y???Sex:Male Luke e:11/27/2024 Address:[address] [place], [place] [id number] Pcp:Navid Esposito MD Subjective: * Chief Complaints: [...] use of a nail nipper and/or dremel-type notch grinder, to a more viable healthy nail [...] to maintain effectiveness in symptomatic relief - 03861.?Keratoma Treatment:?Parring or Cutting of Benign Hyperkeratotic Lesion(s)?(-55) [...] instrumentation by the physician of record - 60298.? * Procedure Codes:?25459 DEBRI DE NAIL, 6 OR MORE, Modifiers: XS 56012 TRIM SKIN LESION, Modifiers: XS * Preventive [...] Woods DPM Date:? Generated for Prem parada/Simona/Alan on:?12/31/2024 11:10 AM EDT History and Physical Notes * HPI (History [...] lesion(s) located at, IPJ, Medial, T5 Orthopedic FOOTWEAR EVALUATION: worn, non-s upportive, shoe gear properties exacerbate patient's foot/toe deformity [...]
--- OUTSIDE RECORDS SUMMARY | 2024-12-31 11:11 | XMS_ITS ---
Author Organization [facility] Address [address] [place] [address] Care Team Providers Care Fork Lift Mechanic Name Role Phone Vaibhav GARCES, Navid Primary Care Provider Unavail able Cecily Woods Unavailable [phone] Maile Puckett Unavailable [phone] Encounters Encounter Location Date Provider Diagnosis [address] [address] 10/15/2024 Maile Puckett Plan Of Treatment Next Appt Details Provider Name:Cecily andrade, 02/19/2025 09:30:00 AM, [address] [place] [address], [address], Progress Notes * Peggy FOXoDOB:[birth year] (79 yo M)Acc No.[id number]:10/15/2024 Progress Notes Patient:?Peggy FOX Provider:?Maile Puckett DPM :1945???Age:79 Y???Sex:Male Luke e:10/15/2024 Address:[address] [facility] [address], [place], [place] Pcp:Navid Esposito MD Subjective: * Chief Complaints: [...] DPM Date:?0 10/15/2024 Generated for Prem parada/Simona/Alan on:?12/31/2024 11:10 AM EDT
== END 2024-12-31 11:03 | disposition home or self-care (01) ==
LOC: HO.HSMS 10:03
PROVIDERS: PCP Family Medicine; Visit Provider Physician Assistant Medical
DX: G47.9 Sleep disorder, unspecified (principal); G47.19 Other hypersomnia; R41.89 Other symptoms and signs involving cognitive functions and awareness
CPT/HCPCS: 99214

== ENCOUNTER → 2024-12-31 10:02 | Outpatient (BNVA) | payer OTHER, SELFPAY | PROVIDERS: PCP Family Medicine; Visit Provider Physician Assistant Medical | DX: G47.9 Sleep disorder, unspecified (principal); G47.19 Other hypersomnia; R41.89 Other symptoms and signs involving cognitive functions and awareness | CPT/HCPCS: 99212 ==

== ENCOUNTER → 2025-01-19 10:52 | Outpatient (BNV) | payer OTHER, SELFPAY | PROVIDERS: PCP Family Medicine; Visit Provider Radiology Diagnostic Radiology | DX: R41.89 Other symptoms and signs involving cognitive functions and awareness (principal); D43.2 Neoplasm of uncertain behavior of brain, unspecified | CPT/HCPCS: 70551 ==

== ENCOUNTER 2025-01-19 10:56 | Outpatient (REF) | payer OTHER, SELFPAY ==
--- NOTE | ~2025-01-19 | MR_ITS ---
EXAMINATION: MR BRAIN WITHOUT CONTRAST CLINICAL INFORMATION: Signs and symptoms involving cognitive functions. Cognitive decline. COMPARISON: Correlated to CT dated December 28, 2023. TECHNIQUE: MRI of the brain was obtained using routine sequences without contrast. FINDINGS: No restricted diffusion. There is a 5 mm nodular isointense T1 hyperintense T2/FLAIR lesion centered in the subependymal left lateral ventricle. Bilateral multifocal patchy and punctate deep periventricular white matter hyperintense T2 FLAIR signal involving centrum semiovale and adame radiata and dennise. Multifocal punctate old lacunar infarcts in the basal ganglia. Flow-void signal within the main cerebral vessels is normal. Mild prominence of the extra-axial CSF spaces cerebral sulci and ventricles. Sellar/suprasellar region is normal. Craniocervical junction is intact with the pineal formation in the periodontal C1 region abutting the ventral aspect of the medulla oblongata. MR/MR head/brain wo con IMPRESSION: No acute stroke/nonhemorrhagic ischemia. Small vessel occlusive disease. 5 mm intraventricular/subependymal nodular lesion left lateral ventricle. Consider meningioma. Recommend IV contrast enhanced MRI brain. 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 Electronically signed by: Chivo Nice MD 01/22/2025 09:50 AM EDT
--- OUTSIDE RECORDS SUMMARY | 2025-01-19 11:00 | XMS_ITS ---
Author Organization [facility] Address [address] [place] [address] Care Team Providers Care Certified Prosthetist Name Role Phone Navid Esposito MD Primary Care Provider Unavail able Cecily Woods Unavailable [phone] Maile Puckett Unavailable [phone] REASON FOR VISIT Cancel Encounters Encounter Location Date Provider Diagnosis [address] [address] 10/09/2024 Maile Puckett Plan Of Treatment Next Appt Details Provider Name:Cecily andrade, 02/19/2025 09:30:00 AM, [address] [place] [address], [address], Progress Notes * Nick FOXOB:[birth year] (79 yo M)Acc No.[id number]:10/09/2024 Patient:?Peggy FOX :1945???Age:79 Y???Sex:Male Address:[address] [facility], [address], [place], [address] * true * Date:? Generated for Printi ng/Faolivierg/eTransmitting on:?01/19/2025 10:59 AM EDT
--- OUTSIDE RECORDS SUMMARY | 2025-01-19 11:00 | XMS_ITS ---
Author Organization [facility] Address [address] [place] [address] Care Team Providers Care Water Pollution Control Technician Name Role Phone Vaibhav GARCES, Navid Primary Care Provider Unavail able Cecily Woods Unavailable [phone] Maile Puckett Unavailable [phone] Encounters Encounter Location Date Provider Diagnosis [address] [address] 10/15/2024 Maile Puckett Plan Of Treatment Next Appt Details Provider Name:Cecily andrade, 02/19/2025 09:30:00 AM, [address] [place] [address], [address], Progress Notes * Peggy FOXoDOB:[birth year] (79 yo M)Acc No.[id number]:10/15/2024 Progress Notes Patient:?Peggy FOX Provider:?Miale Puckett DPM :1945???Age:79 Y???Sex:Male Luke e:10/15/2024 Address:[address] [facility], [place], [place] Pcp:Navid Esposito MD Subjective: * Chief Complaints: [...] DPM Date:?0 10/15/2024 Generated for Prem parada/Simona/Alan on:?01/19/2025 11:00 AM EDT
--- OUTSIDE RECORDS SUMMARY | 2025-01-19 11:00 | XMS_ITS | Patient Health Record ---
Author Organization [facility] Address [address] [place] [address] Care Team Providers Care Electric Motor Assembler Name Role Phone Vaibhav GARCES, Navid Primary Care Provider Unavail able Cecily Woods Unavailable [phone] PuckettMaile Unavailable [phone] Allergies Allergen (clinical drug ingredient) Drug/Non Drug [...] Problem Acquired hammer toe of right foot (574328058653091 5) Other hammer toe(s) (acquired), right foot (M20.41) Active confirmed Problem Acquired hammer toe of left foot (283175885334314 3) Other hammer toe(s) (acquired), left foot (M20.42) Active confirmed Problem Type II diabetes mellitus without complication (548215442) Type 2 diabetes mellitus without complication (E11.9) Active confirmed Vital Signs Blood pressure diastolic 80 mm Hg 11/27/2024 Height 5ft6in in 11/27/2024 Blood pressure systolic 123 mm Hg 11/27/2024 Weight 156 lbs 11/27/2024 BMI 25.18 kg/m2 11/27/2024 Encounters Encounter Location Date Provider Diagnosis [facility] [address] 11/27/2024 Cecily Peggy Tinea unguium B35.1 ; Other hammer toe(s) (acquired), right foot M20.41 ; Pain in right toe(s) M79.674 ; Pain in left toe(s) M79.675 ; Type 2 diabetes mellitus without complication E11.9 and Other hammer toe(s) (acquired), left foot M20.[address] [facility] [address] 08/16/2024 Maile Puckett [address] [address] 10/09/2024 Maile Puckett Assessments Encounter Date Diagnosis [...] Details Provider Name:Cecily andrade, 02/19/2025 09:30:00 AM, [address] [place] [address], [place], [address], Insurance Providers Payer Name Payer Address Payer Phone Subscriber Number Group Number Insured Name Patient Relationship to Insured Coverage Start Date Coverage End Date [facility] [employer] S[employer] Claims [address] [facility] [place] [phone] [id number] Micah Mitchell Self - patient is the insured Medical (General) History Medical History History ICD Code Anxiety Depression Diabetic High Blood Pressure Reflux ( GERD) Joint implants/screws Surgical History Surgery Date(Month/Year) cataract surgery
--- OUTSIDE RECORDS SUMMARY | 2025-01-19 11:00 | XMS_ITS ---
Author Organization [facility] Address [address] [place] [address] Care Team Providers Care Supervisor Continuous Weld Pipe Mill Name Role Phone Navid Esposito MD Primary Care Provider Unavail able Cecily Woods Unavailable [phone] Allergies Allergen (clinical drug ingredient) Drug/Non Drug [...] Status W/U Status Risk Notes Problem Type II diabetes mellitus without complication (169808005) Type 2 diabetes mellitus without complication (E11.9) Active confirmed Problem Acquired hammer toe of right foot (495600350836277 5) Other hammer toe(s) (acquired), right foot (M20.41) Active confirmed Problem Acquired hammer toe of left foot (966261622937888 3) Other hammer toe(s) (acquired), left foot (M20.42) Active confirmed Vital Signs Height 5ft6in in 11/27/2024 Weight 156 lbs 11/27/2024 BMI 25.18 kg/m2 11/27/2024 Blood pressure systolic 123 mm Hg 11/27/19 Blood pressure diastolic 80 mm Hg 025 Encounters Encounter Location Date Provider Diagnosis [facility] [address] [address] 11/27/2024 Cecily Peggy Tinea unguium B35.1 ; [...] Reason: Provider Name:Cecily andrade, 02/19/2025 09:30:00 AM, [address] [place] [address], [address], Procedure Notes * Category Sub-Category Detail Notes [...] use of a nail nipper and/or dremel-type drier and grinder tender, to a more viable healthy nail plate [...] to maintain effectiveness in symptomatic relief - 65178 Keratoma Treatment Parring or Cutting o f [...] instrumentation by the physician of record - 39736 Progress Notes * Peggy FOXoDOB:[birth year] (79 yo M)Acc No.[id number]:11/27/2024 Progress Notes Patient:?Peggy FOX o Provider:?Cecily Woods DPM :1945???Age:79 Y???Sex:Male Luke e:11/27/2024 Address:[address] [place], [place] [address] Pcp:Navid Esposito MD Subjective: * Chief Complaints: [...] use of a nail nipper and/or dremel-type drier and grinder tender, to a more viable healthy nail plate [...] to maintain effectiveness in symptomatic relief - 94938.?Keratoma Treatment:?Parring or Cutting of Benign Hyperkeratotic Lesion(s)?(-55) [...] instrumentation by the physician of record - 81475.? * Procedure Codes:?21735 DEBRI DE NAIL, 6 OR MORE, Modifiers: XS 63295 TRIM SKIN LESION, Modifiers: XS * Preventive [...] Woods DPM Date:? Generated for Prem parada/Simona/Alan on:?01/19/2025 10:59 AM EDT History and Physical Notes * [...]
== END 2025-01-19 10:57 | disposition home or self-care (01) ==
LOC: HO.MRI 10:56
PROVIDERS: PCP Family Medicine; Visit Provider Physician Assistant Medical
DX: R41.89 Other symptoms and signs involving cognitive functions and awareness (principal)
CPT/HCPCS: 70551

== ENCOUNTER 2025-02-15 09:28 | Outpatient (AMB) | payer OTHER, SELFPAY ==
--- NOTE | 2025-02-15 09:34 | A.OFFPC_ITS ---
Vital Signs 02/15/25 09:37 Height 5 ft 2 in Weight 155 lb 8 oz BMI 28.4 BP 132/80 Blood Pressure Location Lt brachial Position Sitting Respiration 14 Pulse 68 Pulse Source Pulse Oximeter Temp 98.1 F Temp Source Temporal Artery Scan Pulse Oximetry (%) 98 Oxygen Delivery Method Room Air Intake Visit Reasons: f/u DM, HTN Intake Note: Follow up on htn and dm Compensator Required: No Allergies Benzodiazepines Allergy (Mild, Verified 02/15/25 09:34) Unknown narcotics Allergy (Severe, Uncoded 12/03/24 16:40) memory loss Medication List - Last Reconciled 02/15/25 by Navid Fields MD amlodipine 5 mg PO DAILY atorvastatin 10 mg PO DAILY 90 days blood sugar diagnostic (FreeStyle Lite Strips) DX: E11.9, test blood sugar 3 times a day, 90 days blood-glucose meter (FreeStyle Lite Meter kit) DX: E11.9, test blood sugar 3 times a day, duration 999 days cholecalciferol (vitamin D3) (Vitamin D3) 25 mcg PO DAILY 90 days lancets (FreeStyle Lancets) As directed lisinopril 20 mg PO DAILY 90 days metformin 850 mg PO BID 90 days multivitamin with folic acid 400 mcg (Daily-Joselyn (with folic acid)) 1 tab PO DAILY naproxen 500 mg PO BID PRN 14 days omeprazole 40 mg PO DAILY 90 days sertraline 50 mg PO DAILY 90 days Tobacco use date assessed: 02/15/25 Fall risk assessment: No Falls in past year Last assessed Fall Risk: 02/15/25 Dental Screening Dental Screen Date: 02/15/25 Did you have a dental visit in the last 12 months?: Yes Did you have a dental problem in the last 6 months where you did not have access to dental care?: No Was dental information given to patient?: Patient has dentist HPI f/u DM, HTN HPI Details 80 y/o male presents to f/u diabetes, HT N. Blood pressure today 132/80, 68p. He is on lisinopril 20mg, amlodipine 5mg daily. A1c today 02/15/25 5.9%. He is on metformin 850mg b.i.d. Pt had complaints of cognitive decline. Brain MRI 01/19/25 showed: No acute stroke/nonhemorrhagic ischemia. Small vessel occlusive disease. 5 mm intraventricular/subependymal nodul ar lesion left lateral ventricle. Consider meningioma. Recommend IV contrast enhanced MRI brain. 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 They report ongoing/excessive fatigue - they feel he sleeps too much. Has complaints of a nail fungus. [facility] Medical History History of anemia GERD (gastroesophageal reflux disease) Vitamin D deficiency Hypertension Diabetes mellitus Surgical History Hx of endoscopy Hx of colonoscopy Hx of left knee surgery Family History Father Colon cancer Brother No problems noted. Brother No problems noted. Sister No problems noted. Sister Liver cancer Son No problems noted. Daughter No problems noted. Social History Household Members: Spouse Housing: Apartment Are you a primary manager of care to a significant other at home: No Do you presently have visiting nurse or other home services: No Alcohol intake: never Patient Tobacco Use Status: Never used Tobacco e-Cigarette/Vaping Use: Never Used Second Hand Smoke Exposure: No service: No Current occupational status: retired Current occupational exposures/hazards: No Cognitive needs: No Hearing needs: No Vision needs: No Questionnaire PHQ-9 Over the last 2 weeks, how often have you been bothered by any of the following problems? 1. Little interest or pleasure in doing things: several days 2. Feeling down, depressed, or hopeless: several days 3. Trouble falling or staying asleep, or sleeping too much: several days 4. Feeling tired or having little energy: more than half the days 5. Poor appetite or overeating: several days 6. Feeling bad about yourself - or that you are a failure or have let yourself or your family down: not at all 7. Trouble concentrating on things, such as reading the newspaper or watching television: several days 8. Moving or speaking so slowly that other people could have noticed. Or the opposite - being so fidgety or restless that you have been moving around a lot more than usual: not at all 9. Thoughts that you would be better off or of hurting yourself in some way: not at all Total score: 7 Depression Screening Interpretation: Positive Depression Screening Follow-up: Follow-up Visit Requested Depression Screening Done: Yes 69704 - PHQ-9 Billing: Yes Source: Developed by Drs. Dionicio Jiang, Pat Whalen, Ashish Eisenberg and colleagues, with an educational duncan from [employer]. Thrive Questionnaire Date Thrive assessed: 02/15/25 I am a: Patient What is your living situation today?: I have a steady place to live Within the past 12 months, did the food you bought not last and you didn't have the money to get more?: Never true Within the past 12 months, did you worry whether your food would run out before you got money to buy more?: Never true Do you have trouble paying for medicines?: No Do you have trouble getting transportation to medical appointments?: No Do you have trouble paying your heating and electricity bill?: No Do you have trouble taking care of your child, family member or friend?: No Do you have trouble with day-to-day activities such as bathing, preparing meals, shopping, managing finances, etc.?: Yes Are you currently unemployed and looking for a job?: No Are you interested in more education?: No Please select the resources that you would like help with: None Currently or been in a relationship where the following occur: No concerns reported THRIVE Score: 0 AUDIT C Alcohol Use Questionnaire (AUDIT-C) 1. How often do you have a drink containing alcohol?: Never Total Score: 0 SERGEY-7 AMB Questionnaire SERGEY-7 Date SERGEY - 7 assessed: 02/15/25 Feeling nervous, anxious, or on edge: 1 = Several days Not being able to stop or control worryin = More than half the days Worrying too much about different things: 2 = More than half the days Trouble relaxin = Several days Being so restless that it is hard to sit still: 1 = Several days Becoming easily annoyed or irritable: 1 = Several days Feeling afraid as if something awful might happen: 1 = Several days Total SERGEY-7 score (0-4 normal; 5-9 mild; 10-14 moderate; 15-21 severe): 9 Source: Developed by Russ Quintanillaet B.W. Koby, Ashish Eisenberg and colleagues, with an educational duncan from [employer]. SERGEY-7 Assessment Billing SERGEY-7 Assessment Tool: SERGEY-7 Assessment 11607 Review of Systems Const Denies chills, Denies fatigue, Denies fever(s), Denies headache(s) and Denies weakness ENT Denies dizziness and Denies headache(s) Card Denies dyspnea Resp Denies cough, Denies dyspnea, Denies wheezing and Denies other (shortness of breath) Musc Denies numbness and Denies tingling Neuro Denies dizziness, Denies headache(s), Denies numbness, Denies tingling and Denies weakness Psych Denies anxiety and Denies depression Endo Denies fatigue Aller/Immun Denies wheezing Physical exam (Primary Care) Vital Signs: Last Vital Signs Temp 98.1 F 02/15/25 09:37 Pulse 68 02/15/25 09:37 Resp 14 02/15/25 09:37 BP 132/80 02/15/25 09:37 Pulse Ox 98 02/15/25 09:37 Oxygen Delivery Method Room Air 02/15/25 09:37 BMI result Body Mass Index 28.4 Tobacco/Smoking Status: Tobacco use Status Tobacco use date assessed 02/15/25 02/15/25 09:36 Patient Tobacco Use Status Never used Tobacco 02/15/25 09:36 e-Cigarette/Vaping Use Never Used 02/15/25 09:36 PHQ-9: PHQ-9 Score PHQ-9: Total score 7 02/15/25 09:51 Depression Screening Interpretation: Positive Depression Screening Follow-up: Follow-up Visit Requested Thrive Assessment: Date of Thrive Assessment Date Thrive assessed 02/15/25 02/15/25 09:36 Currently or been in a relationship where the following occur: No concerns reported Const General: well developed; No acute distress Nutritional Appearance: well nourished Orientation/consciousness: patient oriented x3 HENMT Head: Yes normocephalic and Yes atraumatic Eyes General: appearance normal, both eyes and all related structures Pupils: Equal, round and reactive pupils present EOM: EOMs intact bilaterally Resp Effort & Inspection: normal respiratory effort Neuro General: patient oriented x3 and gait normal Cranial nerves: Yes Equal, round and reactive pupils present Psych Affect: normal affect Results AMB Hemoglobin A1c AMB Hemoglobin A1c 5.9 % Last Edit by Bhumi Bello MA on 02/15/25 10:04 AMB Hemoglobin A1c AMB Hemoglobin A1c 5.9 % Last Edit by Guerrero Newsome MA on 02/15/25 10:07 Coding Level of Care Code Est Pt Level 4 (19625) Diagnoses Diabetes type 2, controlled E11.9 Essential hypertension I10 Cognitive decline R41.89 Nail fungus B35.1 Excessive daytime sleepiness G47.19 Additional Codes SERGEY-7 Assessment Billing - SERGEY-7 Assessment Tool: SERGEY-7 Assessment 76778 ([id number]) PHQ-9 - 02795 - PHQ-9 Billing: Yes ([id number]) Assessment & Plan Assessment & Plan (1) Diabetes type 2, controlled: Code(s): E11.9 - Type 2 diabetes mellitus without complications Category: Medical Plan: A1c?shows?good?control.??Goal?is?less?than?7% Continue?current?medication (2) Essential hypertension: Code(s): I10 - Essential (primary) hypertension Category: Medical Plan: Blood?pressure?is?controlled.??Goal?is?less?than?140/90 Continue?current?medications (3) Cognitive decline: Code(s): R41.89 - Other symptoms and signs involving cognitive functions and awareness Category: Medical Plan: Ongoing?cognitive?decline Recent?sleep?study?was?negative However,?in?MRI?was?performed?which?showed 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 ?An?MRI?with?contrast?has?been?ordered Follow-up?with?Neurology?as?recommended Continue?mental?puzzles?and?games Continue?socialization Continue?activity?and?exercise?including?physical?therapy (4) Nail fungus: Code(s): B35.1 - Tinea unguium Category: Medical Plan: Follow-up?with?podiatry?as?recommended (5) Excessive daytime sleepiness: Code(s): G47.19 - Other hypersomnia Category: Medical Plan: Likely?print?of?his?mental?status?changes?and?mentions Get?plenty?of?rest Encouraged?exercise Orders: Orders AMB Hemoglobin A1c Today E11.9 - Type 2 diabetes mellitus without complications AMB Hemoglobin A1c Today E11.9 - Type 2 diabetes mellitus without complications, I10 - Essential (primary) hypertension
[2025-02-15 09:37] VITALS: BP 132/80; PULSE 68; RESP 14; TEMP 36.7; O2SAT 98; BMI 28.4
--- OUTSIDE RECORDS SUMMARY | 2025-02-15 09:45 | XMS_ITS ---
Author Organization [facility] Address [address] [place] [address] Care Team Providers Care Senior Producer Name Role Phone Navid Esposito MD Primary Care Provider Unavail able Cecily Woods Unavailable [phone] Maile Puckett Unavailable [phone] REASON FOR VISIT Cancel Encounters Encounter Location Date Provider Diagnosis [facility] [address] [place] [address] 10/09/2024 Maile Puckett Plan Of Treatment Next Appt Details Provider Name:Cecily andrade, 04/29/2025 11:15:00 AM, [address] [facility], [place], [address], Progress Notes * Peggy FOXoDOB:[birth year] (79 yo M)Acc No.[id number]:10/09/2024 Patient:?Peggy FOX :1945???Age:79 Y???Sex:Male Address:[address] [place] [address], [address], [place], [address] * true * Date:? Generated for Printi ng/Faolivierg/eTransmitting on:?02/15/2025 09:44 AM EDT
--- OUTSIDE RECORDS SUMMARY | 2025-02-15 09:45 | XMS_ITS ---
Author Organization [facility] Address [address] [place] [address] Care Team Providers Care Automotive Porter Name Role Phone Vaibhav GARCES, Navid Primary Care Provider Unavail able Cecily Woods Unavailable [phone] Maile Puckett Unavailable [phone] Encounters Encounter Location Date Provider Diagnosis [address] [address] 10/15/2024 Maile Puckett Plan Of Treatment Next Appt Details Provider Name:Cecily andrade, 04/29/2025 11:15:00 AM, [address] [place] [address], [address], Progress Notes * Nick FOXOB:[birth year] (80 yo M)Acc No.[id number]:10/15/2024 Progress Notes Patient:?Peggy FOX Provider:?Maile Puckett DPM :1945???Age:79 Y???Sex:Male Luke e:10/15/2024 Address:[address] [place] [address] [address], [place], [place] Pcp:Navid Esposito MD Subjective: * Chief Complaints: [...] DPM Date:?0 10/15/2024 Generated for Prem parada/Simona/Alan on:?02/15/2025 09:44 AM EDT
--- OUTSIDE RECORDS SUMMARY | 2025-02-15 09:45 | XMS_ITS | Patient Health Record ---
Author Organization [facility] Address [address] [place] [address] Care Team Providers Care Recreational Facilities Motel Manager Name Role Phone Vabihav GARCES, Navid Primary Care Provider Unavail able Cecily Woods Unavailable [phone] PuckettMaile Unavailable [phone] Allergies Allergen (clinical drug ingredient) Drug/Non Drug [...] Problem Acquired hammer toe of right foot (354212300529 9105) Other hammer toe(s) (acquired), right foot (M20.41) Active confirmed Problem Acquired hammer toe of left foot (726163298930 9103) Other hammer toe(s) (acquired), left foot (M20.42) Active confirmed Problem Type 2 diabetes mellitus without complication (E11.9) Active confirmed Vital Signs Blood pressure diastolic 80 mm Hg 11/27/2024 Height 5ft6in in 11/27/2024 Blood pressure systolic 123 mm Hg 11/27/2024 Weight 156 lbs 11/27/2024 BMI 25.18 kg/m2 11/27/2024 Encounters Encounter Location Date Provider Diagnosis [facility] [address] 11/27/2024 Cecily Peggy Tinea unguium B35.1 ; Other hammer toe(s) (acquired), right foot M20.41 ; Pain in right toe(s) M79.674 ; Pain in left toe(s) M79.675 ; Type 2 diabetes mellitus without complication E11.9 and Other hammer toe(s) (acquired), left foot M20.[address] [facility] [address] 08/16/2024 Maile Puckett [address] [address] 10/09/2024 Maile Puckett Assessments Encounter Date Diagnosis [...] Details Provider Name:Cecily andrade, 04/29/2025 11:15:00 AM, [address] [facility], [place], [address], Insurance Providers Payer Name Payer Address Payer Phone Subscriber Number Group Number Insured Name Patient Relationship to Insured Coverage Start Date Coverage End Date [facility] CCA SCO Claims [address] [facility] [place] [phone] [id number] Micah Mitchell Self - patient is the insured Medical (General) History Medical History History ICD Code Anxiety Depression Diabetic High Blood Pressure Reflux ( GERD) Joint implants/screws Surgical History Surgery Date(Month/Year) cataract surgery
--- OUTSIDE RECORDS SUMMARY | 2025-02-15 09:45 | XMS_ITS ---
Author Organization [facility] Address [address] [place] [address] Care Team Providers Care Training Development Director Name Role Phone Navid Esposito MD Primary Care Provider Unavail able Cecily Woods Unavailable [phone] Allergies Allergen (clinical drug ingredient) Drug/Non Drug [...] Problem Type II diabetes mellitus without complication (957016260) Type 2 diabetes mellitus without complication (E11.9) Active confirmed Problem Acquired hammer toe of right foot (485855255002487 5) Other hammer toe(s) (acquired), right foot (M20.41) Active confirmed Problem Acquired hammer toe of left foot (481496378014277 3) Other hammer toe(s) (acquired), left foot (M20.42) Active confirmed Vital Signs Height 5ft6in in 11/27/2024 Weight 156 lbs 11/27/2024 BMI 25.18 kg/m2 11/27/2024 Blood pressure systolic 123 mm Hg 11/27/19 Blood pressure diastolic 80 mm Hg 025 Encounters Encounter Location Date Provider Diagnosis [facility] [address] [address] 11/27/2024 Cecily Peggy Tinea unguium B35.1 ; [...] Up: 3 Months, Reason: Provider Name:Cecily andrade, 04/29/2025 11:15:00 AM, [address] [place] [address], [place], [address], Procedure Notes * Category Sub-Category Detail Notes [...] use of a nail nipper and/or dremel-type tile grinder, to a more viable healthy nail [...] to maintain effectiveness in symptomatic relief - 67531 Keratoma Treatment Parring or Cutting o f [...] instrumentation by the physician of record - 57335 Progress Notes * Peggy FOXoDOB:[birth year] (79 yo M)Acc No.[id number]:11/27/2024 Progress Notes Patient:?Peggy FOX o Provider:?Cecily Woods DPM :1945???Age:79 Y???Sex:Male Luke e:11/27/2024 Address:[address] [place], [place] [id number] Pcp:Navid Esposito MD Subjective: * Chief Complaints: [...] use of a nail nipper and/or dremel-type tile grinder, to a more viable healthy nail [...] to maintain effectiveness in symptomatic relief - 82578.?Keratoma Treatment:?Parring or Cutting of Benign Hyperkeratotic Lesion(s)?(-55) [...] instrumentation by the physician of record - 04161.? * Procedure Codes:?80496 DEBRI DE NAIL, 6 OR MORE, Modifiers: XS 61436 TRIM SKIN LESION, Modifiers: XS * Preventive [...] Sign off status: Completed true * Provider:?Cecily Woods, ARPIT Date:? Generated for Prem parada/Simona/Alan on:?02/15/2025 09:44 AM EDT History and Physical Notes * [...]
== END 2025-02-15 10:24 | disposition home or self-care (01) ==
LOC: HO.HMCFM 09:31
PROVIDERS: PCP Family Medicine; Visit Provider Family Medicine
DX: E11.9 Type 2 diabetes mellitus without complications (principal); I10 Essential (primary) hypertension; R41.89 Other symptoms and signs involving cognitive functions and awareness; B35.1 Tinea unguium; G47.19 Other hypersomnia

== ENCOUNTER → 2025-02-15 09:28 | Outpatient (BNVA) | payer OTHER, SELFPAY | PROVIDERS: PCP Family Medicine; Visit Provider Family Medicine | DX: I10 Essential (primary) hypertension (principal); E78.5 Hyperlipidemia, unspecified; E11.9 Type 2 diabetes mellitus without complications; R41.89 Other symptoms and signs involving cognitive functions and awareness; B35.1 Tinea unguium; G47.19 Other hypersomnia | CPT/HCPCS: 83036; 96127; 99212 ==

== ENCOUNTER 2025-02-20 13:11 | Outpatient (RCR) | payer OTHER, SELFPAY ==
[2024-12-28 11:08] VITALS: BP 140/60; PULSE 68; O2SAT 99
--- NOTE | 2024-12-28 13:13 | MHC.PT.EP ---
[facility] [place] [facility] [place] [facility] [place] [facility] [address] Saad Jama [address] [phone] F: [phone] F: [phone] F: [phone] F: [phone] Physical Therapy Plan of Care Date of Evaluation: 12/28/24 Date of Surgery: Diagnosis: R29.898 Other symptoms and signs involving the musculoskeletal system, R25.1 Tremor unspecified, R26.81 Unsteadiness of feet, Lower extremity weakness signed by Dr. Fields 11/13/24 (Of note PCP also ordered OT however pt insurance will not allow treatment of two disciplines on same day- daughter requesting to start OT- therapist to address with front desk specialist staff for scheduling - patient may need to do one therapy at a time due to transportation concerns Assessment: Pt is a RHD Cambodian speaking 79 y/o male referred to PT by PCP Dr. Fields for treatment of: R29.898 Other symptoms and signs involving the musculoskeletal system, R25.1 Tremor unspecified, R26.81 Unsteadiness of feet, Lower extremity weakness signed by Dr. Fields 11/13/24 with PMH significant for recent diagnosis of dementia (unknown by patient per report of daughter Virgen), DMII, HTN, History of anemia GERD (gastroesophageal reflux disease) Vitamin D deficiency Hypertension Diabetes mellitus Hx of endoscopy Hx of colonoscopy Hx of left knee surgery. restless leg syndrome, presents to office after referral from PCP for treatment of with and daughter Virgen [phone]. Pt exhibits poor trunk strength, poor LE and core motor control/strength, poor safety and decreased functional mobility. He poses as a fall risk and currently and lacks a formal exercise regimen. Pt will benefit from attending skilled PT services 2x/week x 6 weeks to address listed deficits with strong focus on PWR! moves emphasis to target motor control, movement, and strength to improve ambulation/mobility and reduce risk of falls. Pt was educated with and daughter Virgen who acted as pt life skills coordinator volunteer per pt request. Post evaluation patient was educated re: importance of using RW vs no AD to improve safety and reduce risk of falls, reviewed hand placement for functional transfers, importance of eccentric control for functional transfers , seated ankle DF/PF and seated marches. Pt encouraged to get up and walk every hour and avoid static positioning. HEP handouts given to patient/family caregiver. Frequency and Duration: The patient will be seen 2x/week x 4 weeks Short Term Goals: 1. Sit<>stand with good stability and strength on first attempt min use of UE. (IR: Needs UE, poor posture, poor stability). 2. Pt will demonstrate good eccentric control with functional transfers. (IR: Poor stability, poor eccentric control). 3. Pt will demonstrate rolling L>R and R>L MOD I with good motor control. (IR: Poor motor control, delay, decreased movement). 4. Pt will ascend/descend 6 inch step with good dynamic balance. (IR: step to poor hip flexion/ankle DF with height of rise, increased UE support and trunk lean noted. Mcc Goals: 1. I HEP for self care program. 2. Ambulate community distances 20 minutes MOD I with RW for good safety and endurance. (IR: not using RW shuffle gait flat contact of feet, poor trunk posture, fatigue with five minutes of community distance. 3. Strengthen hip ext 5/5 as evidenced by symmetrical bridge/balance. (IR: Poor bridge, poor elevation, decreased strength). 4. Strengthen hip abd to 5/5 B. (IR: 3/5 with compensation of hip flexion noted). Treatment Plan: Modalities to reduce pain, spasms and effusion. Manual therapy to restore motion and function. Therapeutic exercise to improve strength and flexibility. Neuromuscular re-education for posture and balance. Therapeutic activities to return to functional activities of daily living. Electronically signed by: Kamryn Guardado, PT, DPT Please sign and return to therapist. Thank you for your referral.
== END 2025-04-23 07:20 | disposition home or self-care (01) ==
LOC: HO.PTS 13:11
PROVIDERS: PCP Family Medicine; Visit Provider Family Medicine
DX: R29.898 Other symptoms and signs involving the musculoskeletal system (principal); R25.1 Tremor, unspecified; R26.81 Unsteadiness on feet
CPT/HCPCS: 97110; 97116; 97140; 97163

== ENCOUNTER 2025-03-01 15:05 | Outpatient (REF) | payer OTHER, SELFPAY ==
--- NOTE | ~2025-03-01 | MR_ITS ---
EXAMINATION: MR BRAIN WITH CONTRAST CLINICAL INFORMATION: Incidental finding of intraventricular/subependymal nodular lesion lesion on previous MRI 01/19/2025. COMPARISON: None available. TECHNIQUE: MRI of the brain was obtained using routine sequences with contrast. Intravenous contrast: Gadavist 7.5 mL. FINDINGS: Again visualized is a 4 mm lesion in the left lateral ventricle without enhancement. No mass effect. No additional areas of enhancement seen. Lateral ventricles are mildly enlarged but symmetrical. Normal enhancement is seen in major intracranial vessels. Calvarial bone marrow signal is normal. The paranasal signal is normal. MR/MR head/brain w con IMPRESSION: Nonenhancing 4 mm lesion left lateral ventricle. It is stable to previous CT brain 12/28/2023. 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 It has no cystic consistency. Electronically signed by: Satya Ladd MD 03/04/2025 07:29 AM EDT
--- OUTSIDE RECORDS SUMMARY | 2025-03-01 15:12 | XMS_ITS | Patient Health Record ---
Author Organization [facility] Address [address] [place] [address] Care Team Providers Care Cutter Grind Tool Technician Name Role Phone Vaibhav GARCES, Navid Primary Care Provider Unavail able Cecily Woods Unavailable [phone] PuckettMaile Unavailable [phone] Allergies Allergen (clinical drug ingredient) Drug/Non Drug [...] Problem Acquired hammer toe of right foot (211238690951570 5) Other hammer toe(s) (acquired), right foot (M20.41) Active confirmed Problem Acquired hammer toe of left foot (552003219805345 3) Other hammer toe(s) (acquired), left foot (M20.42) Active confirmed Problem Type II diabetes mellitus without complication (130388222) Type 2 diabetes mellitus without complication (E11.9) Active confirmed Vital Signs Blood pressure diastolic 80 mm Hg 11/27/2024 Height 5ft6in in 11/27/2024 Blood pressure systolic 123 mm Hg 11/27/2024 Weight 156 lbs 11/27/2024 BMI 25.18 kg/m2 11/27/2024 Encounters Encounter Location Date Provider Diagnosis [facility] [address] 11/27/2024 Cecily Peggy Tinea unguium B35.1 ; Other hammer toe(s) (acquired), right foot M20.41 ; Pain in right toe(s) M79.674 ; Pain in left toe(s) M79.675 ; Type 2 diabetes mellitus without complication E11.9 and Other hammer toe(s) (acquired), left foot M20.[address] [facility] [address] 08/16/2024 Maile Puckett [address] [address] 10/09/2024 Maile Puckett Assessments Encounter Date Diagnosis [...] Provider Name:Cecily andrade, 04/29/2025 11:15:00 AM, [address] [facility], [place], [address], Insurance Providers Payer Name Payer Address Payer Phone Subscriber Number Group Number Insured Name Patient Relationship to Insured Coverage Start Date Coverage End Date [facility] [employer] SCO Claims [address] [place] [address] [phone] [id number] Micah Mitchell Self - patient is the insured Medical (General) History Medical History History ICD Code Anxiety Depression Diabetic High Blood Pressure Reflux ( GERD) Joint implants/screws Surgical History Surgery Date(Month/Year) cataract surgery
[2025-03-01] MEDS: gadobutroL 7.5 ML VIAL IVPUSH (15:53)
== END 2025-03-01 15:06 | disposition home or self-care (01) ==
LOC: HO.MRI 15:05
PROVIDERS: PCP Family Medicine; Visit Provider Physician Assistant Medical
DX: R41.89 Other symptoms and signs involving cognitive functions and awareness (principal); M54.2 Cervicalgia; F09 Unspecified mental disorder due to known physiological condition
CPT/HCPCS: 70552; A9585

== ENCOUNTER → 2025-03-01 15:18 | Outpatient (BNV) | payer OTHER, SELFPAY | PROVIDERS: PCP Family Medicine; Visit Provider Radiology Diagnostic Radiology | DX: R90.0 Intracranial space-occupying lesion found on diagnostic imaging of central nervous system (principal) | CPT/HCPCS: 70552 ==

== ENCOUNTER 2025-05-15 12:42 | Outpatient (AMB) | payer OTHER, SELFPAY ==
--- NOTE | 2025-05-15 12:47 | MHC.PC.OV ---
Intake Visit Reasons: FMLA Paperwork Allergies Benzodiazepines Allergy (Mild, Verified 02/15/25 09:34) Unknown narcotics Allergy (Severe, Uncoded 12/03/24 16:40) memory loss Tobacco use date assessed: 02/15/25 Dental Screening Dental Screen Date: 02/15/25 HPI FMLA Paperwork HPI Details Pt presents for FMLA paperwork. Cognitive decline/dysfunction. [facility] Medical History History of anemia GERD (gastroesophageal reflux disease) Vitamin D deficiency Hypertension Diabetes mellitus Surgical History Hx of endoscopy Hx of colonoscopy Hx of left knee surgery Family History Father Colon cancer Brother No problems noted. Brother No problems noted. Sister No problems noted. Sister Liver cancer Son No problems noted. Daughter No problems noted. Social History Household Members: Spouse Housing: Apartment Are you a primary primary care nurse to a significant other at home: No Do you presently have visiting nurse or other home services: No Alcohol intake: never Patient Tobacco Use Status: Never used Tobacco e-Cigarette/Vaping Use: Never Used Second Hand Smoke Exposure: No service: No Current occupational status: retired Current occupational exposures/hazards: No Cognitive needs: No Hearing needs: No Vision needs: No Questionnaire Thrive Questionnaire Date Thrive assessed: 02/15/25 SERGEY-7 AMB Questionnaire SERGEY-7 Date SERGEY - 7 assessed: 02/15/25 Source: Developed by Drs. Dionicio Jiang, Pat Whalen, Ashish Eisenberg and colleagues, with an educational duncan from [employer]. Review of Systems Const Denies chills, Denies fatigue, Denies fever(s), Denies headache(s) and Denies weakness ENT Denies dizziness and Denies headache(s) Card Denies dyspnea Resp Denies cough, Denies dyspnea, Denies wheezing and Denies other (shortness of breath) Musc Denies numbness and Denies tingling Neuro Denies dizziness, Denies headache(s), Denies numbness, Denies tingling and Denies weakness Psych Denies anxiety and Denies depression Endo Denies fatigue Aller/Immun Denies wheezing Physical exam (Primary Care) Tobacco/Smoking Status: Tobacco use Status Tobacco use date assessed 02/15/25 02/15/25 09:36 Patient Tobacco Use Status Never used Tobacco 02/15/25 09:36 e-Cigarette/Vaping Use Never Used 02/15/25 09:36 Thrive Assessment: Date of Thrive Assessment Date Thrive assessed 02/15/25 02/20/25 13:11 Const General: well developed; No acute distress Nutritional Appearance: well nourished Orientation/consciousness: patient oriented x3 HENMT Head: Yes normocephalic and Yes atraumatic Eyes General: appearance normal, both eyes and all related structures Pupils: Equal, round and reactive pupils present EOM: EOMs intact bilaterally Resp Effort & Inspection: normal respiratory effort Neuro General: patient oriented x3 and gait normal Cranial nerves: Yes Equal, round and reactive pupils present Psych Affect: normal affect Coding Level of Care Code Est Pt Level 2 (80252) Diagnoses Altered mental status R41.82 Cognitive decline R41.89 Assessment & Plan Assessment & Plan (1) Altered mental status: Code(s): R41.82 - Altered mental status, unspecified Category: Medical (2) Cognitive decline: Code(s): R41.89 - Other symptoms and signs involving cognitive functions and awareness Category: Medical Plan [facility] paperwork for patient's daughter to allow her intermittent time off from work to take her father, the patient to medical appointments. Patient has had cognitive decline/dementia with lower extremity weakness, unsteady gait and falls since 08/25/2022 when he was hospitalized for altered mental status. He has been referred to neuropsychiatry, neurology and tends physical therapy. Requires medical visits up to twice per week and up to 1 day per episode. His diagnoses are permanent/progressive. [facility] paperwork filled out today.
--- OUTSIDE RECORDS SUMMARY | 2025-05-15 13:14 | XMS_ITS | Patient Health Record ---
Author Organization [facility] Address [address] [place] [address] Care Team Providers Care Piece Work Inspector Name Role Phone Vaibhav GARCES, Navid Primary Care Provider Unavail able Cecily Woods Unavailable [phone] PuckettMaile Unavailable [phone] Allergies Allergen (clinical drug ingredient) Drug/Non Drug [...] A DIARIO Oral; Duration: 90 Days Active Gabapentin 100 MG PLEASE SEE ATTACHED FOR DETAILED DIRECTIONS Oral; Duration: 15 Days Active Extra Depth Orthopedic Shoes [...] 40 MG Oral; Duration: 90 Days Active Social History Tobacco Use: [...] Problem Acquired hammer toe of right foot (574371201264605 5) Other hammer toe(s) (acquired), right foot (M20.41) Active confirmed Problem Acquired hammer toe of left foot (928781219436902 3) Other hammer toe(s) (acquired), left foot (M20.42) Active confirmed Problem Type II diabetes mellitus without complication (399590039) Type 2 diabetes mellitus without complication (E11.9) Active confirmed Vital Signs Blood pressure diastolic 80 mm Hg 11/27/2024 Height 5ft6in in 11/27/2024 Blood pressure systolic 123 mm Hg 11/27/2024 Weight 156 lbs 11/27/2024 BMI 25.18 kg/m2 11/27/2024 Encounters Encounter Location Date Provider Diagnosis [address] [address] 11/27/2024 Cecily Woods Tinea unguium B35.1 ; Other hammer toe(s) (acquired), right foot M20.41 ; Pain in right toe(s) M79.674 ; Pain in left toe(s) M79.675 ; Type 2 diabetes mellitus without complication E11.9 and Other hammer toe(s) (acquired), left foot M20.42 [facility] [address] 08/16/[address] [address] 10/09/[address] [address] 04/29/2025 Cecily Woods Assessments Encounter Date Diagnosis (ICD Code) Assessment [...] foot (ICD-10 - M20.42) Plan Of Treatment No Information Insurance Providers Payer Name Payer Address Payer Phone Subscriber Number Group Number Insured Name Patient Relationship to Insured Coverage Start Date Coverage End Date [facility] SCO Claims [address] [place] [phone] [id number] Micah Mitchell Self - patient is the insured Medical (General) History Medical History History ICD Code Anxiety Depression Diabetic High Blood Pressure Reflux ( GERD) Joint implants/screws Surgical History Surgery Date(Month/Year) cataract surgery
--- OUTSIDE RECORDS SUMMARY | 2025-05-15 13:14 | XMS_ITS | Patient Health Record ---
Author Organization [facility] Address [address] [place] [address] Care Team Providers Care Impact Hammer Operator Name Role Phone Ignacio Abdul Jr Reason For Referral No Information Plan Of Treatment No Information
== END 2025-05-15 13:40 | disposition home or self-care (01) ==
LOC: HO.HMCFM 12:42
PROVIDERS: PCP Family Medicine; Visit Provider Family Medicine
DX: R41.82 Altered mental status, unspecified (principal); R41.89 Other symptoms and signs involving cognitive functions and awareness

== ENCOUNTER → 2025-05-15 12:42 | Outpatient (BNVA) | payer OTHER, SELFPAY | PROVIDERS: PCP Family Medicine; Visit Provider Family Medicine | DX: K21.9 Gastro-esophageal reflux disease without esophagitis (principal); R41.82 Altered mental status, unspecified; R41.89 Other symptoms and signs involving cognitive functions and awareness | CPT/HCPCS: 99212 ==

== ENCOUNTER 2025-05-21 11:39 | Outpatient (REF) | payer OTHER, SELFPAY ==
--- NOTE | ~2025-05-21 | US_ITS ---
EXAMINATION: US RETROPERITONEAL COMPLETE (RENAL) CLINICAL INFORMATION: Incontinence.. COMPARISON: None available. TECHNIQUE: Real-time imaging of the kidneys and bladder. FINDINGS: RIGHT KIDNEY: 11 x 5 x 6 cm (SAG x AP x TRV). Normal echotexture. Normal renal cortical thickness. No hydronephrosis. No gross solid or cystic lesion. LEFT KIDNEY: 11 x 5 x 5 cm (SAG x AP x TRV). Normal echotexture. Normal renal cortical thickness. No hydronephrosis. No gross solid or cystic lesion detected. BLADDER: Fluid-filled. Bilateral ureteral jets are demonstrated. Prevoid bladder volume is 246 mL. Postvoid bladder volume is 50 mL. Prostate gland measures 4 x 4 x 4 cm. Volume: 34 cc. US/US retroperitoneal comp IMPRESSION: 50 cc retained urine in a post void image. No hydronephrosis. Normal-sized prostate gland with volume: 34 cc.. Electronically signed by: Chivo Nice MD 05/21/2025 12:22 PM EDT
--- OUTSIDE RECORDS SUMMARY | 2025-05-21 13:11 | XMS_ITS | Patient Health Record ---
Author Organization [facility] Address [address] [place] [address] Care Team Providers Care Dryland Farmer Name Role Phone Vaibhav GARCES, Navid Primary Care Provider Unavail able Cecily Woods Unavailable [phone] PuckettMaile Unavailable [phone] Allergies Allergen (clinical drug ingredient) Drug/Non Drug [...] Problem Acquired hammer toe of right foot (524263197994 9105) Other hammer toe(s) (acquired), right foot (M20.41) Active confirmed Problem Acquired hammer toe of left foot (779523679417 9103) Other hammer toe(s) (acquired), left foot (M20.42) Active confirmed Problem Type 2 diabetes mellitus without complication (E11.9) Active confirmed Vital Signs Blood pressure diastolic 80 mm Hg 11/27/2024 Height 5ft6in in 11/27/2024 Blood pressure systolic 123 mm Hg 11/27/2024 Weight 156 lbs 11/27/2024 BMI 25.18 kg/m2 11/27/2024 Encounters Encounter Location Date Provider Diagnosis [address] [address] 11/27/2024 Cecily Woods Tinea unguium B35.1 ; Other hammer toe(s) (acquired), right foot M20.41 ; Pain in right toe(s) M79.674 ; Pain in left toe(s) M79.675 ; Type 2 diabetes mellitus without complication E11.9 and Other hammer toe(s) (acquired), left foot M20.[address] [address] 08/16/[address] [address] 10/09/[address] [address] 04/29/2025 Cecily Woods Assessments Encounter Date Diagnosis [...] Insured Coverage Start Date Coverage End Date [facility] SCO Claims [address] [place] [phone] [id number] Micah Mitchell Self - patient is the insured Medical (General) History Medical History History ICD Code Anxiety Depression Diabetic High Blood Pressure Reflux ( GERD) Joint implants/screws Surgical History Surgery Date(Month/Year) cataract surgery
--- OUTSIDE RECORDS SUMMARY | 2025-05-21 13:11 | XMS_ITS | Patient Health Record ---
Author Organization [facility] Address [address] [place] [address] Care Team Providers Care Buttermaker Helper Name Role Phone Ignacio Abdul Jr [phone] Reason For Referral No Information Plan Of Treatment No Information
== END 2025-05-21 11:40 | disposition home or self-care (01) ==
LOC: HO.US 11:39
PROVIDERS: PCP Family Medicine; Visit Provider Nurse Practitioner Family
DX: N39.41 Urge incontinence (principal); R35.1 Nocturia
CPT/HCPCS: 76770

== ENCOUNTER → 2025-05-21 11:40 | Outpatient (BNV) | payer OTHER, SELFPAY | PROVIDERS: PCP Family Medicine; Visit Provider Radiology Diagnostic Radiology | DX: N39.41 Urge incontinence (principal) | CPT/HCPCS: 76770 ==

== ENCOUNTER 2025-05-23 09:54 | Outpatient (REF) | payer OTHER, SELFPAY ==
--- OUTSIDE RECORDS SUMMARY | 2025-05-23 11:19 | XMS_ITS | Patient Health Record ---
Author Organization [facility] Address [address] [place] [address] Care Team Providers Care Dietetics Teacher Name Role Phone Ignacio Abdul Jr Reason For Referral No Information Plan Of Treatment No Information
--- OUTSIDE RECORDS SUMMARY | 2025-05-23 11:19 | XMS_ITS | Patient Health Record ---
Author Organization [facility] Address [address] [place] [address] Care Team Providers Care Dictating Machine Mechanic Name Role Phone Vaibhav GARCES, Navid Primary Care Provider Unavail able Cecily Woods Unavailable [phone] PuckettMaile Unavailable [phone] Allergies Allergen (clinical drug ingredient) Drug/Non Drug [...] Problem Acquired hammer toe of right foot (771282495904359 5) Other hammer toe(s) (acquired), right foot (M20.41) Active confirmed Problem Acquired hammer toe of left foot (075062175603673 3) Other hammer toe(s) (acquired), left foot (M20.42) Active confirmed Problem Type II diabetes mellitus without complication (886276869) Type 2 diabetes mellitus without complication (E11.9) Active confirmed Vital Signs Blood pressure diastolic 80 mm Hg 11/27/2024 Height 5ft6in in 11/27/2024 Blood pressure systolic 123 mm Hg 11/27/2024 Weight 156 lbs 11/27/2024 BMI 25.18 kg/m2 11/27/2024 Encounters Encounter Location Date Provider Diagnosis [address] [address] 11/27/2024 Cecily Woods Tinea unguium B35.1 ; Other hammer toe(s) (acquired), right foot M20.41 ; Pain in right toe(s) M79.674 ; Pain in left toe(s) M79.675 ; Type 2 diabetes mellitus without complication E11.9 and Other hammer toe(s) (acquired), left foot M20.[address] [address] 08/16/[address] [address] 10/09/[address] [address] 04/29/2025 Cecily Woods Assessments Encounter Date Diagnosis [...] Coverage Start Date Coverage End Date [facility] SCO Claims [address] [place] [phone] [id number] Micah Mitchell Self - patient is the insured Medical (General) History Medical History History ICD Code Anxiety Depression Diabetic High Blood Pressure Reflux ( GERD) Joint implants/screws Surgical History Surgery Date(Month/Year) cataract surgery
[2025-05-23 11:58] LABS: Anion Gap 11 (12-20); Blood Urea Nitrogen 18 mg/dL (9-16); Calcium 8.8 mg/dL (8.4-10.2); Carbon Dioxide 28 mmol/L (22-29); Chloride 108 mmol/L (96-108); Estimated Glomerular Filt Rate > 60; Potassium 4.1 mmol/L (3.3-5.1); Sodium 143 mmol/L (135-145)
== END 2025-05-23 09:55 | disposition home or self-care (01) ==
LOC: HO.WFDLDS 09:54
PROVIDERS: Visit Provider Family Medicine
DX: Z00.00 Encounter for general adult medical examination without abnormal findings (principal); E11.9 Type 2 diabetes mellitus without complications
CPT/HCPCS: 36415; 80048

== ENCOUNTER 2025-05-27 10:26 | Outpatient (REF) | payer OTHER, SELFPAY ==
--- OUTSIDE RECORDS SUMMARY | 2025-05-27 11:34 | XMS_ITS | Patient Health Record ---
Author Organization [facility] Address [address] [place] [address] Care Team Providers Care Salesperson Household Appliances Name Role Phone Ignacio Abdul Jr [phone] Reason For Referral No Information Plan Of Treatment No Information
[2025-05-27 14:58] LABS: Microalbum/Creatinine Ratio Ur 14.3 ug/mg cr (<30)
== END 2025-05-27 10:27 | disposition home or self-care (01) ==
LOC: HO.WFDLDS 10:26
PROVIDERS: Visit Provider Family Medicine
DX: I10 Essential (primary) hypertension (principal); E11.9 Type 2 diabetes mellitus without complications
CPT/HCPCS: 82043; 82570

== ENCOUNTER 2025-05-28 09:42 | Outpatient (AMB) | payer OTHER, SELFPAY ==
--- OUTSIDE RECORDS SUMMARY | 2025-02-19 05:30 | XMS_ITS ---
Author Organization [facility] Address [address] [place] [address] Care Team Providers Care Security System Installer Name Role Phone Navid Esposito MD Primary Care Provider Unavail able Cecily Woods Unavailable [phone] Olmos Encounters Encounter Location Date Provider Diagnosis [facility] [address] [place] [address] 02/19/2025 Cecily Woods Plan Of Treatment No Information Progress Notes * Peggy FOXoDOB:[birth year] (80 yo M)Acc No.[id number]:02/19/2025 Progress Note Patient: Peggy GIRONo Provider: Andrew Woods DPM :1945 A ge:80 Y S ex:Male Date:02/19/2025 Address:[address] [place] [address], [address], [facility] Pcp:Navid Esposito MD Subjective: * Chief Complaints: [...] Pending * Provider: Andrew Woods DPM Date: 02/19/2025 Generated for Prem parada/Simona/eTransmitting on: 0 05/28/2025 10:22 AM EDT
--- OUTSIDE RECORDS SUMMARY | 2025-04-29 07:15 | XMS_ITS ---
[facility] Address [address] [place] [address] Care Team Providers Care Network Design Architect Name Role Phone Navid Esposito MD Primary Care Provider Unavail able Cecily Woods Unavailable [phone] Allergies Allergen (clinical drug ingredient) Drug/Non Drug [...] Active Encounters Encounter [facility] Date [facility] [address] 04/29/2025 Cecily Woods Plan Of Treatment No Information Progress Notes * Nick FOXOB:[birth year] (80 yo M)Acc No.[id number]:04/29/2025 Progress Note Patient: Micah GIRON Provider: Andrew Woods DPM :1945 A ge:80 Y S ex:Male Date:04/29/2025 Address:[address] [place] [address] Pcp:Navid Esposito MD Subjective: * Chief Complaints: [...] 0 04/29/2025 Generated for Prem parada/Simona/Caraitting on: 0 05/28/2025 10:22 AM EDT
--- NOTE | 2025-05-28 09:50 | MHC.OFFVIS ---
Intake Visit Reasons: PSA/US f/u Intake Note: Patient is present for PSA/US Urology Medication:NONE Antibiotic Allergy:NONE Blood Thinner:NONE TODAY'S PVR: 0ML'S Pipeline Gang Supervisor Required: No Allergies Benzodiazepines Allergy (Mild, Verified 05/28/25 11:41) Unknown narcotics Allergy (Severe, Uncoded 05/28/25 11:41) memory loss Medication List - Last Reconciled 05/28/25 by JUANITO MaP- amlodipine 5 mg PO DAILY atorvastatin 10 mg PO DAILY 90 days blood sugar diagnostic (FreeStyle Lite Strips) DX: E11.9, test blood sugar 3 times a day, 90 days blood-glucose meter (FreeStyle Lite Meter kit) DX: E11.9, test blood sugar 3 times a day, duration 999 days cholecalciferol (vitamin D3) (Vitamin D3) 25 mcg PO DAILY 90 days lancets (FreeStyle Lancets) As directed lisinopril 20 mg PO DAILY 90 days metformin 850 mg PO BID 90 days multivitamin with folic acid 400 mcg (Daily-Joselyn (with folic acid)) 1 tab PO DAILY naproxen 500 mg PO BID PRN 14 days omeprazole 40 mg PO DAILY 90 days sertraline 50 mg PO DAILY 90 days HPI Comments Details: Micah is a very pleasant 80-year-old [place] Islander-speaking male patient of Dr. Fields who was accompanied by his and daughter at today's office visit. Has a past medical history of anemia, GERD, vitamin-D deficiency, hypertension, and diabetes mellitus. He presents to the office today for follow-up. Of note, patient was seen approximately 3 months ago as a new patient for nocturia at which time a retroperitoneal ultrasound, PSA, and A1c were ordered for further assessment evaluation. These results were reviewed and communicated with the patient and his family today. 05/27 bilateral kidneys are normal in echotexture. No hydronephrosis, renal calculi, or lesions noted. The bladder is fluid-filled. Postvoid residual 50 mL. Prostate measures estimated 35 mL. PSA: 05/24 0.9, 11/26 1.2, 12/25 1.3 A1c: 08/25 6.8, 12/24 6.6, 03/26 6.8, 11/27 6.2, 02/24 5.9, 5/25 5.9 We did discussed potential causes of nocturia. Family believes patient experiences episodes of nocturia as he has an abnormal sleep-wake cycle. Family reports patient sleeps most of the day and then at night is up and about. They are attempting to have patient be more active throughout the day. They are considering senior center for activities. We did discuss further treatment options and risks and benefits of these treatment options. In office urinalysis results reviewed with the patient today. PVR 0 mL. He denies hematuria, dysuria, foul smelling urine, changes to urinary stream, flank pain, fever, and or chills. He does report to be drinking increased amounts of coffee throughout the day however has recently stopped drinking coffee after 15:00 per recommendation of neurology/ sleep medicine. All questions were answered. He otherwise offers no other issues or concerns at this time. [facility] Medical History History of anemia GERD (gastroesophageal reflux disease) Vitamin D deficiency Hypertension Diabetes mellitus Surgical History Hx of endoscopy Hx of colonoscopy Hx of left knee surgery Family History Father Colon cancer Brother No problems noted. Brother No problems noted. Sister No problems noted. Sister Liver cancer Son No problems noted. Daughter No problems noted. Social History Household Members: Spouse Housing: Apartment Are you a primary child care centre manager to a significant other at home: No Do you presently have visiting nurse or other home services: No Alcohol intake: never Patient Tobacco Use Status: Never used Tobacco e-Cigarette/Vaping Use: Never Used Second Hand Smoke Exposure: No service: No Current occupational status: retired Current occupational exposures/hazards: No Cognitive needs: No Hearing needs: No Vision needs: No Review of Systems Eyes Reports no additional complaints ENT Reports no additional complaints Card Reports as per HPI Resp Reports no additional complaints GI Reports as per HPI Reports as per HPI Musc Reports no additional complaints Neuro Reports no additional complaints Psych Reports no additional complaints Endo Reports as per HPI Justino/Lymph Reports as per HPI Physical Exam Const General: cooperative, healthy appearing, comfortable, no acute distress, well developed, alert and awake Orientation/consciousness: patient oriented x3 Limitations: no limitations HEENT Head: Yes normal to inspection, Yes normocephalic and Yes atraumatic Ears: hearing grossly normal bilaterally Eyes General: appearance normal, both eyes and all related structures Neck Neck: Yes normal visual inspection and Yes trachea midline Chest Chest palpation & inspection: normal inspection of the chest Resp Effort & Inspection: normal respiratory effort and able to speak in complete sentences Cardio Rate: regular rate GI Inspection: Yes normal to inspection General: Yes no CVA tenderness Back/Spine/Pelvis Back: no CVA tenderness Skin General skin exam: no rashes or lesions noted Neuro General: patient oriented x3 Extrem General: Yes normal to inspection Psych Appearance: grossly normal and well kempt Mental Status: mental status grossly normal Speech and movement: Normal speech and movement present and Clear speech present Affect: normal affect Attitude: cooperative Thought process: Normal thought process present Thought content: Normal thought content present Insight: Fair insight present (Psych) Judgement: Fair judgement present (Psych) Office Procedures Post Void Residual Post Residual Void Post Void Residual (PVR): 0 [id number] Void Residual by ultrasound Results AMB Urinalysis, Automated UA Leukoctes 0 Ingrid/uL Last Edit by MAYURI Bright on 05/28/25 10:52 UA Nitrite Negative Last Edit by MAYURI Bright on 05/28/25 10:52 UA Urobilinogen 0.2 mg/dL Last Edit by MAYURI Bright on 05/28/25 10:52 UA Protein 15 mg/dL Last Edit by MAYURI Bright on 05/28/25 10:52 UA pH 6.5 Last Edit by MAYURI Bright on 05/28/25 10:52 UA Blood 0 Damion/uL Last Edit by MAYURI Bright on 05/28/25 10:52 UA Specific [place] 1.015 Last Edit by MAYURI Bright on 05/28/25 10:52 UA Ketone Last Edit by MAYURI Bright on 05/28/25 10:52 UA Bilirubin 1 mg/dL Last Edit by MAYURI Bright on 05/28/25 10:52 UA Glucose 0 mg/dL Last Edit by MAYURI Bright on 05/28/25 10:52 Results Reviewed Results Reviewed: Laboratory Last Values Urine pH (Auto) 6.5 05/28/25 10:51 Specific [place] (Auto) 1.015 05/28/25 10:51 Urine Protein (Auto) 15 mg/dL 05/28/25 10:51 Glucose (UA)(Auto) 0 mg/dL 05/28/25 10:51 Urine Blood (Auto) 0 Damion/uL 05/28/25 10:51 Urine Nitrite (Auto) Negative 05/28/25 10:51 Urine Bilirubin (Auto) 1 mg/dL 05/28/25 10:51 Urine Urobilinogen (Auto) 0.2 mg/dL 05/28/25 10:51 Leukocyte Esterase (Auto) 0 Ingrid/uL 05/28/25 10:51 Date of Service: 05/21/25 Procedure(s): US retroperitoneal comp EXAMINATION: US RETROPERITONEAL COMPLETE (RENAL) FINDINGS: RIGHT KIDNEY: 11 x 5 x 6 cm (SAG x AP x TRV). Normal echotexture. Normal renal cortical thickness. No hydronephrosis. No gross solid or cystic lesion. LEFT KIDNEY: 11 x 5 x 5 cm (SAG x AP x TRV). Normal echotexture. Normal renal cortical thickness. No hydronephrosis. No gross solid or cystic lesion detected. BLADDER: Fluid-filled. Bilateral ureteral jets are demonstrated. Prevoid bladder volume is 246 mL. Postvoid bladder volume is 50 mL. Prostate gland measures 4 x 4 x 4 cm. Volume: 34 cc. IMPRESSION: 50 cc retained urine in a post void image. No hydronephrosis. Normal-sized prostate gland with volume: 34 cc. Assessment & Plan Assessment & Plan (1) Nocturia more than twice per night: Code(s): R35.1 - Nocturia Category: Medical (2) Urinary incontinence, urge: Code(s): N39.41 - Urge incontinence Category: Medical Plan In office urinalysis results with the patient today; as noted above. PVR 0 mL. Recent retroperitoneal ultrasound results reviewed with the patient today; as noted above. Recent PSA and A1c results reviewed with the patient's family today; as noted above. All questions were answered. We did discussed at length potential causes of nocturia as well as further treatment options and risks and benefits of these treatment options. We did discussed potential near future cystoscopy if symptoms worsen and or persist. Will continue with surveillance monitoring. Follow-up in 6 months with PVR; or sooner with any issues, concerns, and or questions. Orders: Orders AMB Urinalysis Automated Today Z13.9 - Encounter for screening, unspecified Patient Instructions: The patient had an opportunity to ask questions regarding the treatment plan. All questions were answered. Physical exam, labs, and imaging were discussed and reviewed in detail. As well as risks, benefits, and discussion of treatment choices. No major barriers to understanding were identified. The patient expressed understanding and agreement with the above treatment plan. The patient was made aware they should contact our office by phone for worsening of their current condition, the appearance of new symptoms, or with any questions or concerns. Compliance is encouraged with any medications and follow up testing that is ordered. It is a privilege to be allowed the opportunity to participate in? your urological care.? Again, if you have any questions or concerns If you have any questions or concerns please do not hesitate to contact me. The office is [phone]. This note is constructed using voice recognition software. While every effort has been made to ensure accuracy cash applications manager errors may have been included. Yours sincerely, CIRILO Ma Coding Level of Care Code Est Pt Level 3 (10097) Complex EM visit Add On G2211 Diagnoses Nocturia more than twice per night R35.1 Urinary incontinence, urge N39.41 CPT Codes Post Residual Void - PVR CPT Code: 16707-Dbrr Void Residual by ultrasound ([id number])
--- OUTSIDE RECORDS SUMMARY | 2025-05-28 10:22 | XMS_ITS | Patient Health Record ---
Author Organization [facility] Address [address] [place] [address] Care Team Providers Care Construction Management Assistant Name Role Phone Vaibhav GARCES, Navid Primary Care Provider Unavail able Cecily Woods Unavailable [phone] PuckettMaile Unavailable [phone] Allergies Allergen (clinical drug ingredient) Drug/Non Drug [...] Problem Acquired hammer toe of right foot ([id number] 5) Other hammer toe(s) (acquired), right foot (M20.41) Active confirmed Problem Acquired hammer toe of left foot ([id number] 3) Other hammer toe(s) (acquired), left foot (M20.42) Active confirmed Problem Type II diabetes mellitus without complication ([id number]) Type 2 diabetes mellitus without complication (E11.9) Active confirmed Vital Signs Blood pressure diastolic 80 mm Hg 11/27/2024 Height 5ft6in in 11/27/2024 Blood pressure systolic 123 mm Hg 11/27/2024 Weight 156 lbs 11/27/2024 BMI 25.18 kg/m2 11/27/2024 Encounters Encounter Location Date Provider Diagnosis [address] [address] 11/27/2024 Cecily Woods Tinea unguium B35.1 ; Other hammer toe(s) (acquired), right foot M20.41 ; Pain in right toe(s) M79.674 ; Pain in left toe(s) M79.675 ; Type 2 diabetes mellitus without complication E11.9 and Other hammer toe(s) (acquired), left foot M20.[address] [facility] [address] [address] [facility]/16/[address] [address] 10/09/[address] [address] 04/29/2025 Cecily Woods Assessments Encounter Date Diagnosis [...] Coverage Start Date Coverage End Date [facility] SCO Claims [address] [place] [phone] [id number] Micah Mitchell Self - patient is the insured Medical (General) History Medical History History ICD Code Anxiety Depression Diabetic High Blood Pressure Reflux ( GERD) Joint implants/screws Surgical History Surgery Date(Month/Year) cataract surgery
--- OUTSIDE RECORDS SUMMARY | 2025-05-28 10:23 | XMS_ITS | Patient Health Record ---
Author Organization [facility] Address [address] [place] [address] Care Team Providers Care Yarn Cleaner Name Role Phone Ignacio Abdul Jr Reason For Referral No Information Plan Of Treatment No Information
== END 2025-05-28 10:33 | disposition home or self-care (01) ==
LOC: HO.HUSH 09:43
PROVIDERS: PCP Family Medicine; Visit Provider Nurse Practitioner Family
DX: R35.1 Nocturia (principal); N39.41 Urge incontinence; Z13.9 Encounter for screening, unspecified
CPT/HCPCS: 99213; G2211

== ENCOUNTER → 2025-05-28 09:42 | Outpatient (BNVA) | payer OTHER, SELFPAY | PROVIDERS: PCP Family Medicine; Visit Provider Nurse Practitioner Family | DX: R35.1 Nocturia (principal); N39.41 Urge incontinence; Z79.899 Other long term (current) drug therapy | CPT/HCPCS: 51798; 81003; 99212 ==

== ENCOUNTER 2025-05-29 11:32 | Outpatient (AMB) | payer OTHER, SELFPAY ==
--- OUTSIDE RECORDS SUMMARY | 2025-02-19 05:30 | XMS_ITS ---
Author Organization [facility] Address [address] [place] [address] Care Team Providers Care Statistics Manager Name Role Phone Navid Esposito MD Primary Care Provider Unavail able Cecily Woods Unavailable [phone] Olmos Encounters Encounter Location Date Provider Diagnosis [facility] [address] [place] [address] 02/19/2025 Cecily Woods Plan Of Treatment No Information Progress Notes * Peggy FOXoDOB:[birth year] (80 yo M)Acc No.[id number]:02/19/2025 Progress Note Patient: Peggy GIRONo Provider: Andrew Woods DPM :1945 A ge:80 Y S ex:Male Date:02/19/2025 Address:[address] [place] [address], [address], [facility] Pcp:Navid Esposito MD Subjective: * Chief Complaints: * [address] Olmos. * Medical History: Objective: * Vitals: Assessment: Plan: * Treatment: * Images: * The named appointment provid er may or may not be the originator of this progress note, and it is not deemed complete until electronically signed by the appointment provider. Sign off status: Pending * Provider: Andrew Wodos DPM Date: 02/19/2025 Generated for Kerryi karma/Simona/eTransmitting on: 0 05/29/2025 12:33 PM EDT
--- OUTSIDE RECORDS SUMMARY | 2025-04-29 07:15 | XMS_ITS ---
Author [facility] Address [address] [place] [address] Care Team Providers Care Connection Worker Name Role Phone Navid Esposito MD Primary Care Provider Unavail able Cecily Woods Unavailable [phone] Allergies Allergen (clinical drug ingredient) Drug/Non Drug [...] Active Encounters Encounter Location Date [facility] [address] 04/29/2025 Cecily Woods Plan Of Treatment No Information Progress Notes * Nick FOXOB:[birth year] (80 yo M)Acc No.[id number]:04/29/2025 Progress Note Patient: Micah GIRON Provider: Andrew Woods DPM :1945 A ge:80 Y S ex:Male Date:04/29/2025 Address:[address] [place] [address] Pcp:Navid Esposito MD Subjective: * Chief Complaints: [...] Pending * Provider: Andrew Woods DPM Date: 04/29/2025 Generated for Prem parada/Simona/Caraitting on: 05/29/2025 12:33 PM EDT
--- NOTE | 2025-05-29 11:35 | MHC.PC.OV ---
Vital Signs 05/29/25 11:43 Height 5 ft 2 in Weight 151 lb 2 oz BMI 27.6 BP 137/65 Blood Pressure Location Rt brachial Position Sitting Respiration 16 Pulse 65 Pulse Source Pulse Oximeter Temp 99.3 F Temp Source Oral Pulse Oximetry (%) 100 Oxygen Delivery Method Room Air Intake Visit Reasons: f/u diabetes, HTN Intake Note: patient here for follow up on DM and HTN Mental Health Program Manager Required: No Allergies Benzodiazepines Allergy (Mild, Verified 05/29/25 11:42) Unknown narcotics Allergy (Severe, Uncoded 05/28/25 11:41) memory loss Medication List - Last Reconciled 05/29/25 by Navid Fields MD amlodipine 5 mg PO DAILY atorvastatin 10 mg PO DAILY 90 days blood sugar diagnostic (FreeStyle Lite Strips) DX: E11.9, test blood sugar 3 times a day, 90 days blood-glucose meter (FreeStyle Lite Meter kit) DX: E11.9, test blood sugar 3 times a day, duration 999 days cholecalciferol (vitamin D3) (Vitamin D3) 25 mcg PO DAILY 90 days lancets (FreeStyle Lancets) As directed lisinopril 20 mg PO DAILY 90 days metformin 850 mg PO BID 90 days multivitamin with folic acid 400 mcg (Daily-Joselyn (with folic acid)) 1 tab PO DAILY naproxen 500 mg PO BID PRN 14 days omeprazole 40 mg PO DAILY 90 days sertraline 50 mg PO DAILY 90 days Tobacco use date assessed: 05/29/25 Fall risk assessment: No Falls in past year Last assessed Fall Risk: 05/29/25 Dental Screening Dental Screen Date: 05/29/25 Did you have a dental visit in the last 12 months?: Yes Did you have a dental problem in the last 6 months where you did not have access to dental care?: No Was dental information given to patient?: Patient has dentist HPI f/u diabetes, HTN HPI Details 80 y/o male presents to f/u diabetes, HTN. BP today 137/75, 65p. He is on lisinopril 20mg, amlodipine 5mg daily. A1c today 6.2%. He is on metformin 850mg b.i.d. HPI Comments History of Present Illness Details Documentation assistance for Navid Fields MD, was provided by Tong Bolton, Night Patrol Inspector on 05/29/2025 at 12:16 PM EST. Santamaria, Dr. Fields, have read, observed, and verified documentation. [facility] Medical History History of anemia GERD (gastroesophageal reflux disease) Vitamin D deficiency Hypertension Diabetes mellitus Surgical History Hx of endoscopy Hx of colonoscopy Hx of left knee surgery Family History Father Colon cancer Brother No problems noted. Brother No problems noted. Sister No problems noted. Sister Liver cancer Son No problems noted. Daughter No problems noted. Social History Household Members: Spouse Housing: Apartment Are you a primary manager respiratory care to a significant other at home: No Do you presently have visiting nurse or other home services: No Alcohol intake: never Patient Tobacco Use Status: Never used Tobacco e-Cigarette/Vaping Use: Never Used Second Hand Smoke Exposure: No service: No Current occupational status: retired Current occupational exposures/hazards: No Cognitive needs: No Hearing needs: No Vision needs: No Questionnaire Thrive Questionnaire Date Thrive assessed: 02/15/25 I am a: Patient What is your living situation today?: I have a steady place to live Within the past 12 months, did the food you bought not last and you didn't have the money to get more?: Never true Within the past 12 months, did you worry whether your food would run out before you got money to buy more?: Never true Do you have trouble paying for medicines?: No Do you have trouble getting transportation to medical appointments?: No Do you have trouble paying your heating and electricity bill?: No Do you have trouble taking care of your child, family member or friend?: No Do you have trouble with day-to-day activities such as bathing, preparing meals, shopping, managing finances, etc.?: Yes Are you currently unemployed and looking for a job?: No Are you interested in more education?: No Please select the resources that you would like help with: None Currently or been in a relationship where the following occur: No concerns reported THRIVE Score: 0 SERGEY-7 AMB Questionnaire SERGEY-7 Date SERGEY - 7 assessed: 02/15/25 Source: Developed by Drs. Dionicio Jiang, Pat Whalen, Ashish Eisenberg and colleagues, with an educational duncan from [employer]. Review of Systems Const Denies chills, Denies fatigue, Denies fever(s), Denies headache(s) and Denies weakness ENT Denies dizziness and Denies headache(s) Card Denies dyspnea Resp Denies cough, Denies dyspnea, Denies wheezing and Denies other (shortness of breath) Musc Denies numbness and Denies tingling Neuro Denies dizziness, Denies headache(s), Denies numbness, Denies tingling and Denies weakness Psych Denies anxiety and Denies depression Endo Denies fatigue Aller/Immun Denies wheezing Physical exam (Primary Care) Vital Signs: Last Vital Signs Temp 99.3 F 05/29/25 11:43 Pulse 65 05/29/25 11:43 Resp 16 05/29/25 11:43 BP 137/65 05/29/25 11:43 Pulse Ox 100 05/29/25 11:43 Oxygen Delivery Method Room Air 05/29/25 11:43 BMI result Body Mass Index 27.6 Tobacco/Smoking Status: Tobacco use Status Tobacco use date assessed 05/29/25 05/29/25 11:48 Patient Tobacco Use Status Never used Tobacco 05/29/25 11:36 e-Cigarette/Vaping Use Never Used 05/29/25 11:36 Thrive Assessment: Date of Thrive Assessment Date Thrive assessed 02/15/25 05/29/25 11:36 Currently or been in a relationship where the following occur: No concerns reported Const General: well developed; No acute distress Nutritional Appearance: well nourished Orientation/consciousness: patient oriented x3 HENMT Head: Yes normocephalic and Yes atraumatic Eyes General: appearance normal, both eyes and all related structures Pupils: Equal, round and reactive pupils present EOM: EOMs intact bilaterally Resp Effort & Inspection: normal respiratory effort Auscultation: clear to auscultation bilaterally Cardio Rate: regular rate Rhythm: regular rhythm Heart sounds: S1 normal heart sound present, S2 normal heart sound present, no gallops, no murmurs and no rubs Neuro General: patient oriented x3 and gait normal Cranial nerves: Yes Equal, round and reactive pupils present Psych Affect: normal affect Coding Level of Care Code Est Pt Level 3 (19621) Diagnoses Essential hypertension I10 Diabetes type 2, controlled E11.9 Assessment & Plan Assessment & Plan (1) Essential hypertension: Code(s): I10 - Essential (primary) hypertension Category: Medical Plan: Blood pressure is controlled. Goal is less than 140/90 Continue current medication Work on diet low in salt/sodium, weight control and exercise (2) Diabetes type 2, controlled: Code(s): E11.9 - Type 2 diabetes mellitus without complications Category: Medical Plan: A1c shows good control and he is at goal less than 7.0% Continue current medication Continue to work at a diet low in sugars and starches Encouraged weight control and exercise Followed by Dr. Mosqueda for eye exam and up-to-date Orders: Orders Prostate Specific Antigen Scr Today Z12.5 - Encounter for screening for malignant neoplasm of prostate Lipid Panel Today Z00.00 - Encounter for general adult medical examination without abnormal findings TSH reflex Free T4 Today Z00.00 - Encounter for general adult medical examination without abnormal findings UA CC w/rflx Micro + Cult Today Z00.00 - Encounter for general adult medical examination without abnormal findings Comprehensive [place]. Panel Fast Today Z00.00 - Encounter for general adult medical examination without abnormal findings Complete Blood Count Auto Diff Today Z00.00 - Encounter for general adult medical examination without abnormal findings Microalbumin, Random (w Creat) Today I10 - Essential (primary) hypertension Vitamin D 25-OH Total Today E55.9 - Vitamin D deficiency, unspecified
[2025-05-29 11:43] VITALS: BP 137/65; PULSE 65; RESP 16; TEMP 37.4; O2SAT 100; BMI 27.6
--- OUTSIDE RECORDS SUMMARY | 2025-05-29 12:33 | XMS_ITS | Patient Health Record ---
Author Organization [facility] Address [address] [place] [address] Care Team Providers Care Sheet Metal Supervisor Name Role Phone Vaibhav GARCES, Navid Primary Care Provider Unavail able Cecily Woods Unavailable [phone] PuckettMaile Unavailable [phone] Allergies Allergen (clinical drug ingredient) Drug/Non Drug [...] Problem Acquired hammer toe of right foot ([id number] 9105) Other hammer toe(s) (acquired), right foot (M20.41) Active confirmed Problem Acquired hammer toe of left foot (188795189973 9103) Other hammer toe(s) (acquired), left foot (M20.42) Active confirmed Problem Type 2 diabetes mellitus without complication (E11.9) Active confirmed Vital Signs Blood pressure diastolic 80 mm Hg 11/27/2024 Height 5ft6in in 11/27/2024 Blood pressure systolic 123 mm Hg 11/27/2024 Weight 156 lbs 11/27/2024 BMI 25.18 kg/m2 11/27/2024 Encounters Encounter Location Date Provider Diagnosis [address] [address] 11/27/2024 Cecily Woods Tinea unguium B35.1 ; Other hammer toe(s) (acquired), right foot M20.41 ; Pain in right toe(s) M79.674 ; Pain in left toe(s) M79.675 ; Type 2 diabetes mellitus without complication E11.9 and Other hammer toe(s) (acquired), left foot M20.[address] [address] 08/16/[address] [address] 10/09/[address] [address] 04/29/2025 Cecily Woods Assessments Encounter Date Diagnosis [...] Insured Coverage Start Date Coverage End Date [facility] SCO Claims [address] [place] [phone] [id number] Micah Mitchell Self - patient is the insured Medical (General) History Medical History History ICD Code Anxiety Depression Diabetic High Blood Pressure Reflux ( GERD) Joint implants/screws Surgical History Surgery Date(Month/Year) cataract surgery
--- OUTSIDE RECORDS SUMMARY | 2025-05-29 12:34 | XMS_ITS | Patient Health Record ---
Author Organization [facility] Address [address] [place] [address] Care Team Providers Care Sales Service Executive Name Role Phone Ignacio Abdul Jr [phone] Reason For Referral No Information Plan Of Treatment No Information
== END 2025-05-29 12:43 | disposition home or self-care (01) ==
LOC: HO.HMCFM 11:33
PROVIDERS: PCP Family Medicine; Visit Provider Family Medicine
DX: I10 Essential (primary) hypertension (principal); E11.9 Type 2 diabetes mellitus without complications

== ENCOUNTER → 2025-05-29 11:32 | Outpatient (BNVA) | payer OTHER, SELFPAY | PROVIDERS: PCP Family Medicine; Visit Provider Family Medicine | DX: I10 Essential (primary) hypertension (principal); R73.03 Prediabetes; E55.9 Vitamin D deficiency, unspecified | CPT/HCPCS: 83036; 99212 ==

== ENCOUNTER 2025-06-17 09:11 | Outpatient (REF) | payer OTHER, SELFPAY ==
--- OUTSIDE RECORDS SUMMARY | 2024-10-15 06:30 | XMS_ITS ---
Author Organization [facility] Address [address] [place] [id number] Care Team Providers Care Flight Communications Specialist Name Role Phone Navid Esposito MD Primary Care Provider Unavail able Cecily Woods Unavailable [phone] Maile Puckett Unavailable [phone] Encounters Encounter Location Date Provider Diagnosis [address] [address] 10/15/2024 Maile Puckett Plan Of Treatment No Information Progress Notes * Peggy FOXoDOB:[birth year] (80 yo M)Acc No.[id number]:10/15/2024 Progress Notes Patient: Peri GODOY Micah Provider: Jayesh Puckett DPM :1945 A ge:79 Y S ex:Male Date:10/15/2024 Address:[address] [place] [address] [address] Pcp:Navid Esposito MD Subjective: * Chief Complaints: [...] 0 10/15/2024 Generated for Prem parada/Simona/eTransmitting on: 0 06/17/2025 10:49 AM EDT
--- OUTSIDE RECORDS SUMMARY | 2025-02-19 05:30 | XMS_ITS ---
Author Organization [facility] Address [address] [place] [address] Care Team Providers Care Distribution Field Engineer Name Role Phone Navid Esposito MD Primary Care Provider Unavail able Cecily Woods Unavailable [phone] Olmos Encounters Encounter Location Date Provider Diagnosis [facility] [address] [place] [address] 02/19/2025 Cecily Woods Plan Of Treatment No Information Progress Notes * Peggy FOXoDOB:[birth year] (80 yo M)Acc No.[id number]:02/19/2025 Progress Note Patient: Peggy GIRONo Provider: Andrew Woods DPM :1945 A ge:80 Y S ex:Male Date:02/19/2025 Address:[address] [place] [address], [address], [facility] Pcp:Naivd Esposito MD Subjective: * Chief Complaints: * [...] Andrew Woods DPM Date: 02/19/2025 Generated for Kerryi karma/Simona/eTransmitting on: 0 06/17/2025 10:49 AM EDT
--- OUTSIDE RECORDS SUMMARY | 2025-04-29 07:15 | XMS_ITS ---
[facility] Address [address] [place] [address] Care Team Providers Care Clinical Laboratory Scientist Name Role Phone Navid Esposito MD Primary Care Provider Unavail able Cecily Woods Unavailable [phone] Allergies Allergen (clinical drug ingredient) Drug/Non Drug [...] Encounters Encounter [facility] Date [facility] [address] 04/29/2025 Cecily Woods Plan Of Treatment No Information Progress Notes * Nick FOXOB:[birth year] (80 yo M)Acc No.[id number]:04/29/2025 Progress Note Patient: Micah GIRON Provider: Andrew Woods DPM :1945 A ge:80 Y S ex:Male Date:04/29/2025 Address:[address] [place] [address] Pcp:Navid Esposito MD Subjective: * Chief Complaints: [...] Date: 04/29/2025 Generated for Prem parada/Simona/Caraitting on: 0 06/17/2025 10:49 AM EDT
--- OUTSIDE RECORDS SUMMARY | 2025-06-17 10:49 | XMS_ITS | Patient Health Record ---
Author Organization [facility] Address [address] [place] [address] Care Team Providers Care Gauge And Weigh Machine Adjuster Name Role Phone Vaibhav GARCES, Navid Primary Care Provider Unavail able Cecily Woods Unavailable [phone] PuckettMaile Unavailable [phone] Allergies Allergen (clinical drug ingredient) Drug/Non Drug [...] Problem Acquired hammer toe of right foot ([id number] 5) Other hammer toe(s) (acquired), right foot (M20.41) Active confirmed Problem Acquired hammer toe of left foot ([id number] 3) Other hammer toe(s) (acquired), left foot (M20.42) Active confirmed Problem Type II diabetes mellitus without complication (356207554) Type 2 diabetes mellitus without complication (E11.9) Active confirmed Vital Signs Blood pressure diastolic 80 mm Hg 11/27/2024 Height 5ft6in in 11/27/2024 Blood pressure systolic 123 mm Hg 11/27/2024 Weight 156 lbs 11/27/2024 BMI 25.18 kg/m2 11/27/2024 Encounters Encounter Location Date Provider Diagnosis [address] [address] 11/27/2024 Cecily Woods Tinea unguium B35.1 ; Other hammer toe(s) (acquired), right foot M20.41 ; Pain in right toe(s) M79.674 ; Pain in left toe(s) M79.675 ; Type 2 diabetes mellitus without complication E11.9 and Other hammer toe(s) (acquired), [facility] [address] 08/16/[address] [address] 10/09/[address] [address] 04/29/2025 Cecily Woods Assessments Encounter Date Diagnosis [...] Insured Coverage Start Date Coverage End Date [facility] [employer] Claims [address] [place] [phone] [id number] Micah Mitchell Self - patient is the insured Medical (General) History Medical History History ICD Code Anxiety Depression Diabetic High Blood Pressure Reflux ( GERD) Joint implants/screws Surgical History Surgery Date(Month/Year) cataract surgery
--- OUTSIDE RECORDS SUMMARY | 2025-06-17 10:49 | XMS_ITS | Patient Health Record ---
Author Organization [facility] Address [address] [place] [id number] Care Team Providers Care Booster Station Operator Name Role Phone Ignacio Abdul Jr Reason For Referral No Information Plan Of Treatment No Information
[2025-06-17 11:21] LABS: MANUAL DIFF FLAG NO
[2025-06-17 11:28] LABS: Hematocrit 36.4 % (42.0-52.0); Hemoglobin 11.6 g/dl (14.0-18.0); Imm Gran Abs Auto 0.01 X10*3/uL (0.00-0.03); Imm Gran Pct Auto 0.2 % (0.0-0.4); Lymphocytes Absolute Auto 1.8 X10*3/uL (1.2-4.9); Mean Corpuscular HGB Conc 31.9 g/dl (31.0-36.0); Mean Corpuscular Hemoglobin 29.9 pg (27.0-33.0); Mean Corpuscular Volume 93.8 fL (80.0-98.0); NRBC Abs Auto 0.000 X10*3/uL (0.0-0.012); NRBC Pct Auto 0.0 /100WBC (0.0-0.2); Platelet Count 336 X10*3/uL (160-400); Red Blood Count 3.88 X10*6/uL (4.60-5.80); White Blood Count 6.0 X10*3/uL (4.8-10.8)
[2025-06-17 11:35] LABS: Appearance Urine Clear; Glucose Urine UA Negative (Negative); PH 7.5 (5.0-9.0); Specific Gravity - Urine 1.020 (1.005-1.025); UMIC TRIGGER UACC YES
[2025-06-17 12:14] LABS: Microalbum/Creatinine Ratio Ur 12.5 ug/mg cr (<30)
[2025-06-17 12:16] LABS: Alanine Aminotransferase 17 U/L (0-40); Albumin Level 4.3 g/dL (3.5-5.0); Alkaline Phosphatase 71 U/L (39-117); Anion Gap 13 (12-20); Aspartate Amino Transferase 21 U/L (5-37); Blood Urea Nitrogen 20 mg/dL (9-16); Calcium 9.2 mg/dL (8.4-10.2); Carbon Dioxide 27 mmol/L (22-29); Chloride 107 mmol/L (96-108); Cholesterol 148 mg/dL (<200); Estimated Glomerular Filt Rate > 60; HDL Cholesterol 52 mg/dL (>40); Potassium 4.3 mmol/L (3.3-5.1); Sodium 143 mmol/L (135-145); Total Protein 6.9 g/dL (6.5-8.0); Triglycerides 65 mg/dL (<150)
== END 2025-06-17 09:12 | disposition home or self-care (01) ==
LOC: HO.WFDLDS 09:11
PROVIDERS: Visit Provider Family Medicine
DX: Z12.5 Encounter for screening for malignant neoplasm of prostate (principal); Z00.00 Encounter for general adult medical examination without abnormal findings; I10 Essential (primary) hypertension; E55.9 Vitamin D deficiency, unspecified
CPT/HCPCS: 36415; 80053; 80061; 81001; 82043; 82306; 82570; 84153; 84443; 85025

== ENCOUNTER 2025-06-20 15:00 | Outpatient (AMB) | payer OTHER, SELFPAY ==
--- NOTE | 2025-06-20 15:14 | A.OFFPC_ITS ---
Vital Signs 06/20/25 15:23 Height 5 ft 2 in Weight 149 lb BMI 27.2 BP 119/59 L Blood Pressure Location Rt brachial Position Sitting Respiration 16 Pulse 82 Pulse Source Pulse Oximeter Temp 100 F Temp Source Oral Pulse Oximetry (%) 97 Oxygen Delivery Method Room Air Intake Visit Reasons: CPE Intake Note: patient here for CPE Monitor And Storage Bin Tender Required: Yes Monitor And Storage Bin Tender Language: Special Investigator Name: pt refused w/ Information Interpreted: non-clinical & clinical Allergies Benzodiazepines Allergy (Mild, Verified 06/20/25 15:22) Unknown narcotics Allergy (Severe, Uncoded 05/28/25 11:41) memory loss Tobacco use date assessed: 06/20/25 Fall risk assessment: 1 Fall in past year Last assessed Fall Risk: 06/20/25 Dental Screening Dental Screen Date: 06/20/25 Did you have a dental visit in the last 12 months?: Yes Did you have a dental problem in the last 6 months where you did not have access to dental care?: No Was dental information given to patient?: Patient has dentist HPI CPE HPI Details 80 y/o male presents for a CPE with f/u labs and health maint. Labs drawn 06/17/25. Reviewed labs with pt. Mild anemia. Triglycerides 65. TC 148. LDL 83. HDL 52. PSA 1.64. HPI Comments History of Present Illness Details Documentation assistance for Navid Fields MD, was provided by Tong Bolton, Time Study Observer on at 4:27 PM EST. I, Dr. Fields, have read, observed, and verified documentation. PFS Medical History History of anemia GERD (gastroesophageal reflux disease) Vitamin D deficiency Hypertension Diabetes mellitus Surgical History Hx of endoscopy Hx of colonoscopy Hx of left knee surgery Family History Father Colon cancer Brother No problems noted. Brother No problems noted. Sister No problems noted. Sister Liver cancer Son No problems noted. Daughter No problems noted. Social History Household Members: Spouse Housing: Apartment Are you a primary care manager to a significant other at home: No Do you presently have visiting nurse or other home services: No Alcohol intake: never Patient Tobacco Use Status: Never used Tobacco e-Cigarette/Vaping Use: Never Used Second Hand Smoke Exposure: No service: No Current occupational status: retired Current occupational exposures/hazards: No Cognitive needs: No Hearing needs: No Vision needs: No Questionnaire PHQ-9 Over the last 2 weeks, how often have you been bothered by any of the following problems? 1. Little interest or pleasure in doing things: several days 2. Feeling down, depressed, or hopeless: several days 3. Trouble falling or staying asleep, or sleeping too much: nearly every day 4. Feeling tired or having little energy: several days 5. Poor appetite or overeating: more than half the days 6. Feeling bad about yourself - or that you are a failure or have let yourself or your family down: several days 7. Trouble concentrating on things, such as reading the newspaper or watching television: several days 8. Moving or speaking so slowly that other people could have noticed. Or the opposite - being so fidgety or restless that you have been moving around a lot more than usual: several days 9. Thoughts that you would be better off or of hurting yourself in some way: not at all Total score: 11 Depression Screening Interpretation: Positive Depression Screening Done: Yes 52428 - PHQ-9 Billing: Yes Source: Developed by Drs. Dionicio Jiang, Pat Whalen, Ashish Eisenberg and colleagues, with an educational duncan from [employer]. Thrive Questionnaire Date Thrive assessed: 02/15/25 I am a: Patient What is your living situation today?: I have a steady place to live Within the past 12 months, did the food you bought not last and you didn't have the money to get more?: Never true Within the past 12 months, did you worry whether your food would run out before you got money to buy more?: Never true Do you have trouble paying for medicines?: No Do you have trouble getting transportation to medical appointments?: No Do you have trouble paying your heating and electricity bill?: No Do you have trouble taking care of your child, family member or friend?: No Do you have trouble with day-to-day activities such as bathing, preparing meals, shopping, managing finances, etc.?: Yes Are you currently unemployed and looking for a job?: No Are you interested in more education?: No Please select the resources that you would like help with: None Currently or been in a relationship where the following occur: No concerns reported THRIVE Score: 0 AUDIT C Alcohol Use Questionnaire (AUDIT-C) 1. How often do you have a drink containing alcohol?: Never 3. How often do you have six or more drinks on one occasion?: Never Total Score: 0 Score Reviewed/Action Taken: Yes SERGEY-7 AMB Questionnaire SERGEY-7 Date SERGEY - 7 assessed: 06/20/25 Feeling nervous, anxious, or on edge: 2 = More than half the days Not being able to stop or control worryin = More than half the days Worrying too much about different things: 2 = More than half the days Trouble relaxin = More than half the days Being so restless that it is hard to sit still: 2 = More than half the days Becoming easily annoyed or irritable: 2 = More than half the days Feeling afraid as if something awful might happen: 1 = Several days Total SERGEY-7 score (0-4 normal; 5-9 mild; 10-14 moderate; 15-21 severe): 13 Source: Developed by Drs. Dionicio Jiang, Pat Whalen, Ashish Eisenberg and colleagues, with an educational duncan from [employer]. SERGEY-7 Assessment Billing SERGEY-7 Assessment Tool: SERGEY-7 Assessment 68261 Review of Systems Const Denies chills, Denies fatigue, Denies fever(s), Denies headache(s) and Denies weakness Eyes Denies change in vision ENT Denies dizziness, Denies headache(s), Denies hearing loss, Denies nasal congestion, Denies sinus pain, Denies sinus pressure and Denies sore throat Card Denies chest pain, Denies lightheadedness, Denies dyspnea and Denies other (palpitations) Resp Denies cough, Denies dyspnea and Denies wheezing GI Denies abdominal pain, Denies melena, Denies hematochezia, Denies change in bowel habits, Denies dyspepsia and Denies nausea Denies hematuria and Denies dysuria Musc Denies abnormal gait, Denies myalgias, Denies arthralgias, Denies numbness and Denies tingling Skin/Breast Denies rash, Denies unusual bruising and Denies wounds Neuro Denies abnormal gait, Denies dizziness, Denies headache(s), Denies memory loss, Denies numbness, Denies Sensory deficit (Neuro), Denies tingling and Denies weakness Psych Denies anxiety, Denies depression and Denies memory loss Endo Denies cold intolerance, Denies fatigue, Denies heat intolerance, Denies polydipsia and Denies polyuria Justino/Lymph Denies easy bleeding and Denies easy bruising Aller/Immun Denies wheezing Physical exam (Primary Care) Vital Signs: Last Vital Signs Temp 100 F 06/20/25 15:23 Pulse 82 06/20/25 15:23 Resp 16 06/20/25 15:23 BP 119/59 L 06/20/25 15:23 Pulse Ox 97 06/20/25 15:23 Oxygen Delivery Method Room Air 06/20/25 15:23 BMI result Body Mass Index 27.2 Tobacco/Smoking Status: Tobacco use Status Tobacco use date assessed 06/20/25 06/20/25 15:16 Patient Tobacco Use Status Never used Tobacco 06/20/25 15:15 e-Cigarette/Vaping Use Never Used 06/20/25 15:15 PHQ-9: PHQ-9 Score PHQ-9: Total score 11 06/20/25 16:28 Depression Screening Interpretation: Positive Thrive Assessment: Date of Thrive Assessment Date Thrive assessed 02/15/25 06/20/25 15:15 Currently or been in a relationship where the following occur: No concerns reported Const General: no acute distress, well developed, alert and awake Nutritional Appearance: well nourished Orientation/consciousness: patient oriented x3 HENMT Head: Yes normocephalic and Yes atraumatic Ears: hearing grossly normal bilaterally and TM's normal bilaterally General nose exam: Normal external nose present and Normal nares present Mouth: Normal oral and palatal mucosa present and moist mucous membranes Teeth and gingiva: dentition normal Throat: Yes posterior oropharynx normal Eyes General: appearance normal, both eyes and all related structures Pupils: Equal, round and reactive pupils present and Pupil accommodation reflex normal EOM: EOMs intact bilaterally Neck Neck: Yes normal visual inspection, Yes no lymphadenopathy and Yes trachea midline Thyroid: Thyroid normal Carotids: no bruits Lymphatic: no lymphadenopathy noted Chest Chest palpation & inspection: normal inspection of the chest Resp Effort & Inspection: normal respiratory effort Auscultation: clear to auscultation bilaterally Cardio Rate: regular rate Rhythm: regular rhythm Heart sounds: S1 normal heart sound present, S2 normal heart sound present, no gallops, no murmurs and no rubs Bruits: no abdominal aortic bruits and no carotid bruits GI Palpation (GI): No Abdominal aortic bruit present, Soft to palpation, nontender, No hepatosplenomegaly present and No Rebound tenderness present Auscultation: normal bowel sounds General: Yes no CVA tenderness Back/Spine/Pelvis Back: no CVA tenderness Cervical Spine: cervical ROM normal and No Cervical spine tenderness Thoracic/Lumbar Spine: thoraco-lumbar ROM normal, No pain with thoraco-lumbar ROM, No thoracic spinal tenderness and No lumbar spinal tenderness Skin Lesions: no lesions Rashes: no rashes Trauma: no lacerations or abrasions Wounds: no wounds Nails: normal Neuro General: patient oriented x3 Cranial nerves: Yes Equal, round and reactive pupils present Cognition (Neuro): normal cognition Gait exam (Neuro): Normal gait present Motor exam (neuro): 5/5 motor strength present throughout Sensory Exam: No Sensory deficit (Neuro) Deep tendon reflexes (DTR's): Right patellar reflex intensity grade: 2+ and Left patellar reflex intensity grade: 2+ Extrem General: Yes normal to inspection and No edema Psych Appearance: grossly normal Affect: normal affect Attitude: cooperative Thought process: Normal thought process present Coding Level of Care Code Est Pt Level 3 (40475) Est Pt Prev Care >65y(71486) Diagnoses Adult general medical exam Z00.00 Essential hypertension I10 Diabetes type 2, controlled E11.9 Mild anemia D64.9 Screening for colon cancer Z12.11 Screening for prostate cancer Z12.5 Additional Codes SERGEY-7 Assessment Billing - SERGEY-7 Assessment Tool: SERGEY-7 Assessment 55478 ([id number]) PHQ-9 - 27021 - PHQ-9 Billing: Yes ([id number]) Assessment & Plan Assessment & Plan (1) Adult general medical exam: Code(s): Z00.00 - Encounter for general adult medical examination without abnormal findings Category: Medical Plan: 72-year-old male presents for complete physical exam Encouraged healthy diet with active lifestyle and plenty of exercise (2) Essential hypertension: Code(s): I10 - Essential (primary) hypertension Category: Medical Plan: Blood pressure is controlled. Goal is less than 140/90 Continue her medication (3) Diabetes type 2, controlled: Code(s): E11.9 - Type 2 diabetes mellitus without complications Category: Medical Plan: Recent A1c 6.2% Continue current medication regimen (4) Mild anemia: Code(s): D64.9 - Anemia, unspecified Category: Medical Plan: Mild anemia with slight decline in hemoglobin level Will recheck this along with iron levels (5) Screening for colon cancer: Code(s): Z12.11 - Encounter for screening for malignant neoplasm of colon Category: Medical Plan: Last colonoscopy in 2020 recommended follow-up in 5 years; 2025 (6) Screening for prostate cancer: Code(s): Z12.5 - Encounter for screening for malignant neoplasm of prostate Category: Medical Plan: PSA within range Will continue annual screening Orders: Orders Basic Metabolic Panel Today D64.9 - Anemia, unspecified, Z00.00 - Encounter for general adult medical examination without abnormal findings Reticulocyte Count Today D64.9 - Anemia, unspecified Complete Blood Count Auto Diff Today D64.9 - Anemia, unspecified, Z00.00 - Encounter for general adult medical examination without abnormal findings IRON PROFILE Today D64.9 - Anemia, unspecified Ferritin Today D64.9 - Anemia, unspecified Vitamin B12 and Folate Today D64.9 - Anemia, unspecified, E53.8 - Deficiency of other specified B group vitamins Referrals Gastroenterology Referral Z12.11 - Encounter for screening for malignant neoplasm of colon
[2025-06-20 15:23] VITALS: BP 119/59; PULSE 82; RESP 16; TEMP 37.7; O2SAT 97; BMI 27.2
== END 2025-06-20 16:58 | disposition home or self-care (01) ==
LOC: HO.HMCFM 15:01
PROVIDERS: PCP Family Medicine; Visit Provider Family Medicine
DX: Z00.00 Encounter for general adult medical examination without abnormal findings (principal); I10 Essential (primary) hypertension; E11.9 Type 2 diabetes mellitus without complications; D64.9 Anemia, unspecified; Z12.11 Encounter for screening for malignant neoplasm of colon; Z12.5 Encounter for screening for malignant neoplasm of prostate

== ENCOUNTER → 2025-06-20 15:00 | Outpatient (BNVA) | payer OTHER, SELFPAY | PROVIDERS: PCP Family Medicine; Visit Provider Family Medicine | DX: Z00.00 Encounter for general adult medical examination without abnormal findings (principal); I10 Essential (primary) hypertension; E11.9 Type 2 diabetes mellitus without complications; D64.9 Anemia, unspecified | CPT/HCPCS: 96127; 99212; 99397 ==

== ENCOUNTER 2025-07-24 09:51 | Outpatient (AMB) | payer OTHER, SELFPAY ==
--- OUTSIDE RECORDS SUMMARY | 2024-10-15 06:30 | XMS_ITS ---
Author Organization [facility] Address [address] [place] [id number] Care Team Providers Care Local Superintendent Name Role Phone Navid Esposito MD Primary Care Provider Unavail able Cecily Woods Unavailable [phone] Maile Puckett Unavailable [phone] Encounters Encounter Location Date Provider Diagnosis [address] [address] 10/15/2024 Maile Puckett Plan Of Treatment No Information Progress Notes * Peggy FOXoDOB:[birth year] (80 yo M)Acc No.[id number]:10/15/2024 Progress Notes Patient: Peri PERRYPeri Micah Provider: Jayesh Puckett DPM :1945 A ge:79 Y S ex:Male Date:10/15/2024 Address:[address] [place] [address] [address] Pcp:Navid Esposito MD Subjective: * Chief Complaints: [...] 0 10/15/2024 Generated for Prem parada/Simona/eTransmitting on: 11:45 AM EDT
--- OUTSIDE RECORDS SUMMARY | 2025-02-19 05:30 | XMS_ITS ---
Author Organization [facility] Address [address] [place] [address] Care Team Providers Care Agricultural Engineering Technicians Name Role Phone Navid Esposito MD Primary Care Provider Unavail able Cecily Woods Unavailable [phone] Olmos Encounters Encounter Location Date Provider Diagnosis [facility] [address] [place] [address] 02/19/2025 Cecily Woods Plan Of Treatment No Information Progress Notes * Peggy FOXoDOB:[birth year] (80 yo M)Acc No.[id number]:02/19/2025 Progress Note Patient: Peggy GIRONo Provider: Andrew Woods DPM :1945 A ge:80 Y S ex:Male Date:02/19/2025 Address:[address] [place] [address], [address], [facility] Pcp:Navid Esposito MD Subjective: * Chief Complaints: [...] 0 02/19/2025 Generated for Kerryi karma/Simona/eTransmitting on: 11:45 AM EDT
--- OUTSIDE RECORDS SUMMARY | 2025-04-29 07:15 | XMS_ITS ---
Author Organization [facility] Address [address] [place] [address] Care Team Providers Care Escrow Assistant Name Role Phone Navid Esposito MD Primary Care Provider Unavail able Cecily Woods Unavailable [phone] Allergies Allergen (clinical drug ingredient) Drug/Non Drug [...] Active Encounters Encounter Location Date [facility] [address] 04/29/2025 Cecily Woods Plan Of Treatment No Information Progress Notes * Nick FOXOB:[birth year] (80 yo M)Acc No.[id number]:04/29/2025 Progress Note Patient: Micah GIRON Provider: Andrew Woods DPM :1945 A ge:80 Y S ex:Male Date:04/29/2025 Address:[address] [place] [address] Pcp:Navid Esposito MD Subjective: * Chief Complaints: [...] 0 04/29/2025 Generated for Prem parada/Simona/Caraitting on: 11:45 AM EDT
--- NOTE | 2025-07-24 10:09 | MHC.PC.OV ---
Vital Signs 07/24/25 10:22 07/24/25 10:24 Height 5 ft 2 in Weight 147 lb BMI 26.9 BP 140/70 H 136/72 Blood Pressure Location Rt brachial Rt brachial Position Sitting Sitting Respiration 16 Pulse 85 Pulse Source Pulse Oximeter Temp 98.2 F Temp Source Oral Pulse Oximetry (%) 99 Oxygen Delivery Method Room Air Intake Visit Reasons: F/u labs /yellowish eyes Intake Note: patient is scheduled to review follow up labs per pt daught he did not get these labs done due to the yellowish discoloration of his eye and hands patients daughter is requesting a liver panel so all labs can be done at once. Human Resources Consultant Required: No Allergies Benzodiazepines Allergy (Mild, Verified 07/24/25 10:21) Unknown narcotics Allergy (Severe, Uncoded 05/28/25 11:41) memory loss Medication List - Last Reconciled 07/24/25 by Navid Fields MD amlodipine 5 mg PO DAILY atorvastatin 10 mg PO DAILY 90 days blood sugar diagnostic (FreeStyle Lite Strips) DX: E11.9, test blood sugar 3 times a day, 90 days blood-glucose meter (FreeStyle Lite Meter kit) DX: E11.9, test blood sugar 3 times a day, duration 999 days cholecalciferol (vitamin D3) (Vitamin D3) 25 mcg PO DAILY 90 days lancets (FreeStyle Lancets) As directed lisinopril 20 mg PO DAILY 90 days metformin 850 mg PO BID 90 days multivitamin with folic acid 400 mcg (Daily-Joselyn (with folic acid)) 1 tab PO DAILY naproxen 500 mg PO BID PRN 14 days omeprazole 40 mg PO DAILY 90 days sertraline 50 mg PO DAILY 90 days Tobacco use date assessed: 06/20/25 Dental Screening Dental Screen Date: 06/20/25 HPI F/u labs /yellowish eyes HPI Details 80 y/o male presents to f/u labs. Also has concerns about yellowish eyes. Labs drawn 06/17/25. Reviewed labs with pt. Ongoing mild anemia. Liver enzymes in normal range. Bilirubin levels are normal. Daughter notices pt is eating a lot more carbs. A1c well controlled. [facility] Medical History History of anemia GERD (gastroesophageal reflux disease) Vitamin D deficiency Hypertension Diabetes mellitus Surgical History Hx of endoscopy Hx of colonoscopy Hx of left knee surgery Family History Father Colon cancer Brother No problems noted. Brother No problems noted. Sister No problems noted. Sister Liver cancer Son No problems noted. Daughter No problems noted. Social History Household Members: Spouse Housing: Apartment Are you a primary residential child care counselor to a significant other at home: No Do you presently have visiting nurse or other home services: No Alcohol intake: never Patient Tobacco Use Status: Never used Tobacco e-Cigarette/Vaping Use: Never Used Second Hand Smoke Exposure: No service: No Current occupational status: retired Current occupational exposures/hazards: No Cognitive needs: No Hearing needs: No Vision needs: No Questionnaire Thrive Questionnaire Date Thrive assessed: 02/15/25 I am a: Patient What is your living situation today?: I have a steady place to live Within the past 12 months, did the food you bought not last and you didn't have the money to get more?: Never true Within the past 12 months, did you worry whether your food would run out before you got money to buy more?: Never true Do you have trouble paying for medicines?: No Do you have trouble getting transportation to medical appointments?: No Do you have trouble paying your heating and electricity bill?: No Do you have trouble taking care of your child, family member or friend?: No Do you have trouble with day-to-day activities such as bathing, preparing meals, shopping, managing finances, etc.?: Yes Are you currently unemployed and looking for a job?: No Are you interested in more education?: No Please select the resources that you would like help with: None Currently or been in a relationship where the following occur: No concerns reported THRIVE Score: 0 SERGEY-7 AMB Questionnaire SERGEY-7 Date SERGEY - 7 assessed: 06/20/25 Source: Developed by Drs. Dionicio Jiang, Pat Whalen, Ashish Eisenberg and colleagues, with an educational duncan from [employer]. Review of Systems Const Denies chills, Denies fatigue, Denies fever(s), Denies headache(s) and Denies weakness ENT Denies dizziness and Denies headache(s) Card Denies chest pain, Denies lightheadedness, Denies dyspnea and Denies other (Palpitations) Resp Denies cough, Denies dyspnea, Denies wheezing and Denies other ( shortness of breath) Musc Denies numbness and Denies tingling Neuro Denies dizziness, Denies headache(s), Denies numbness, Denies tingling, Denies paresthesias and Denies weakness Psych Denies anxiety and Denies depression Endo Denies fatigue Aller/Immun Denies wheezing Physical exam (Primary Care) Vital Signs: Last Vital Signs Temp 98.2 F 07/24/25 10:22 Pulse 85 07/24/25 10:22 Resp 16 07/24/25 10:22 BP 136/72 07/24/25 10:24 Pulse Ox 99 07/24/25 10:22 Oxygen Delivery Method Room Air 07/24/25 10:22 BMI result Body Mass Index 26.9 Tobacco/Smoking Status: Tobacco use Status Tobacco use date assessed 06/20/25 07/24/25 10:11 Patient Tobacco Use Status Never used Tobacco 07/24/25 10:11 e-Cigarette/Vaping Use Never Used 07/24/25 10:11 Thrive Assessment: Date of Thrive Assessment Date Thrive assessed 02/15/25 07/24/25 10:11 Currently or been in a relationship where the following occur: No concerns reported Const General: no acute distress and well developed Nutritional Appearance: well nourished Orientation/consciousness: patient oriented x3 [facility] Head: Yes normocephalic and Yes atraumatic Eyes General: appearance normal, both eyes and all related structures Pupils: Equal, round and reactive pupils present EOM: EOMs intact bilaterally Resp Effort & Inspection: normal respiratory effort Auscultation: clear to auscultation bilaterally Cardio Rate: regular rate Rhythm: regular rhythm Heart sounds: S1 normal heart sound present, S2 normal heart sound present, no gallops, no murmurs and no rubs Neuro General: patient oriented x3 and gait normal Cranial nerves: Yes Equal, round and reactive pupils present Psych Affect: normal affect Results AMB Hemoglobin A1c AMB Hemoglobin A1c 5.9 % Last Edit by MAYURI Jeffrey on 07/24/25 10:41 Results Reviewed Results Reviewed: Laboratory Last Values Hgb A1c (Clinic) 5.9 % (4.0-6.0) 07/24/25 10:39 Coding Level of Care Code Est Pt Level 4 (39329) Diagnoses Mild anemia D64.9 Abnormal eye color H57.89 Diabetes type 2, controlled E11.9 Assessment & Plan Assessment & Plan (1) Mild anemia: Code(s): D64.9 - Anemia, unspecified Category: Medical Plan: Ongoing mild anemia which is slightly worse at most recent check in June Normocytic Bilirubin is normal Patient denies any blood in stools Will recheck CBC, iron levels bilirubin levels and reticulocyte count Will follow-up at next visit or call sooner if needed (2) Abnormal eye color: Code(s): H57.89 - Other specified disorders of eye and adnexa Category: Medical Plan: Patient had recent eye injections. No obvious icterus As above, bilirubin levels normal Liver enzyme levels are normal No vision changes Reassured patient (3) Diabetes type 2, controlled: Code(s): E11.9 - Type 2 diabetes mellitus without complications Category: Medical Plan: Daughter notices that patient is eating a lot more carbs A1c shows good control Encouraged healthy diabetic diet No medication changes made today Will continue monitor Orders: Orders Complete Blood Count Auto Diff Today D64.9 - Anemia, unspecified, Z00.00 - Encounter for general adult medical examination without abnormal findings IRON PROFILE Today D64.9 - Anemia, unspecified Ferritin Today D64.9 - Anemia, unspecified Bilirubin Direct Today D64.9 - Anemia, unspecified Lipid Panel Today E11.9 - Type 2 diabetes mellitus without complications, Z00.00 - Encounter for general adult medical examination without abnormal findings AMB Hemoglobin A1c Today E11.9 - Type 2 diabetes mellitus without complications Reticulocyte Count Today D64.9 - Anemia, unspecified Vitamin B12 and Folate Today D64.9 - Anemia, unspecified, E53.8 - Deficiency of other specified B group vitamins Comprehensive [place]. Panel Fast Today D64.9 - Anemia, unspecified, Z00.00 - Encounter for general adult medical examination without abnormal findings
[2025-07-24 10:22] VITALS: BP 140/70; PULSE 85; RESP 16; TEMP 36.8; O2SAT 99; BMI 26.9
[2025-07-24 10:24] VITALS: BP 136/72
--- OUTSIDE RECORDS SUMMARY | 2025-07-24 11:45 | XMS_ITS | Patient Health Record ---
Author Organization [facility] Address [address] [place] [address] Care Team Providers Care Medical Detail Representative Name Role Phone Vaibhav GARCES, Navid Primary Care Provider Unavail able Cecily Woods Unavailable [phone] PuckettMaile Unavailable [phone] Allergies Allergen (clinical drug ingredient) Drug/Non Drug [...] Problem Acquired hammer toe of right foot (699318223729571 5) Other hammer toe(s) (acquired), right foot (M20.41) Active confirmed Problem Acquired hammer toe of left foot (495643193653463 3) Other hammer toe(s) (acquired), left foot (M20.42) Active confirmed Problem Type II diabetes mellitus without complication (989227495) Type 2 diabetes mellitus without complication (E11.9) Active confirmed Vital Signs Blood pressure diastolic 80 mm Hg 11/27/2024 Height 5ft6in in 11/27/2024 Blood pressure systolic 123 mm Hg 11/27/2024 Weight 156 lbs 11/27/2024 BMI 25.18 kg/m2 11/27/2024 Encounters Encounter Location Date Provider Diagnosis [address] [address] 11/27/2024 Cecily Woods Tinea unguium B35.1 ; Other hammer toe(s) (acquired), right foot M20.41 ; Pain in right toe(s) M79.674 ; Pain in left toe(s) M79.675 ; Type 2 diabetes mellitus without complication E11.9 and Other hammer toe(s) (acquired), [facility] M20.[facility] [address] 08/16/[address] [address] 10/09/[address] [address] 04/29/2025 Cecily Woods Assessments Encounter Date Diagnosis [...] Insured Coverage Start Date Coverage End Date [facility] SCO Claims [address] [place] [id number] Micah Mitchell Self - patient is the insured Medical (General) History Medical History History ICD Code Anxiety Depression Diabetic High Blood Pressure Reflux ( GERD) Joint implants/screws Surgical History Surgery Date(Month/Year) cataract surgery
--- OUTSIDE RECORDS SUMMARY | 2025-07-24 11:46 | XMS_ITS | Patient Health Record ---
Author Organization [facility] Address [address] [place] [address] Care Team Providers Care Staff Nurse Name Role Phone Ignacio Abdul Jr Reason For Referral No Information Plan Of Treatment No Information
== END 2025-07-24 10:57 | disposition home or self-care (01) ==
LOC: HO.HMCFM 09:52
PROVIDERS: PCP Family Medicine; Visit Provider Family Medicine
DX: D64.9 Anemia, unspecified (principal); H57.89 Other specified disorders of eye and adnexa; E11.9 Type 2 diabetes mellitus without complications

== ENCOUNTER 2025-07-24 09:51 | Outpatient (REF) | payer OTHER, SELFPAY ==
[2025-07-24 14:00] LABS: MANUAL DIFF FLAG NO
[2025-07-24 14:05] LABS: Appearance Urine Clear; Glucose Urine UA Negative (Negative); PH 6.0 (5.0-9.0); Specific Gravity - Urine 1.020 (1.005-1.025); UMIC TRIGGER UACC YES
[2025-07-24 14:09] LABS: Hematocrit 35.7 % (42.0-52.0); Hemoglobin 11.4 g/dl (14.0-18.0); Imm Gran Abs Auto 0.01 X10*3/uL (0.00-0.03); Imm Gran Pct Auto 0.2 % (0.0-0.4); Lymphocytes Absolute Auto 1.2 X10*3/uL (1.2-4.9); Mean Corpuscular HGB Conc 31.9 g/dl (31.0-36.0); Mean Corpuscular Hemoglobin 29.5 pg (27.0-33.0); Mean Corpuscular Volume 92.5 fL (80.0-98.0); NRBC Abs Auto 0.000 X10*3/uL (0.0-0.012); NRBC Pct Auto 0.0 /100WBC (0.0-0.2); Platelet Count 302 X10*3/uL (160-400); Red Blood Count 3.86 X10*6/uL (4.60-5.80); Reticulocytes Absolute 0.044 X10*6/uL (0.026-0.095); White Blood Count 5.0 X10*3/uL (4.8-10.8)
[2025-07-24 14:50] LABS: Alanine Aminotransferase 16 U/L (0-40); Albumin Level 4.4 g/dL (3.5-5.0); Alkaline Phosphatase 70 U/L (39-117); Anion Gap 11 (12-20); Aspartate Amino Transferase 18 U/L (5-37); Blood Urea Nitrogen 23 mg/dL (9-16); Calcium 9.2 mg/dL (8.4-10.2); Carbon Dioxide 29 mmol/L (22-29); Chloride 106 mmol/L (96-108); Cholesterol 144 mg/dL (<200); Estimated Glomerular Filt Rate > 60; Ferritin 37 ng/mL (20-250); HDL Cholesterol 46 mg/dL (>40); Iron 74 mcg/dL (45-160); Percent Iron Saturation 26 % (15-50); Potassium 4.2 mmol/L (3.3-5.1); Sodium 142 mmol/L (135-145); Total Iron Binding Capacity 288 mcg/dL (228-428); Total Protein 6.9 g/dL (6.5-8.0); Triglycerides 95 mg/dL (<150); Unsaturated Iron Binding 214 ug/dL
[2025-07-24 15:00] LABS: Folate 13.3 ng/mL (> or = 4.0); Vitamin B12 300 pg/mL (200-900)
== END 2025-07-24 09:52 | disposition home or self-care (01) ==
LOC: HO.WFDLDS 09:51
PROVIDERS: PCP Family Medicine; Visit Provider Family Medicine
DX: Z00.00 Encounter for general adult medical examination without abnormal findings (principal); D64.9 Anemia, unspecified; E11.9 Type 2 diabetes mellitus without complications; E53.8 Deficiency of other specified B group vitamins; H57.89 Other specified disorders of eye and adnexa; Z79.84 Long term (current) use of oral hypoglycemic drugs; Z79.1 Long term (current) use of non-steroidal anti-inflammatories (NSAID); Z79.899 Other long term (current) drug therapy
CPT/HCPCS: 36415; 80048; 80053; 80061; 81001; 81003; 82248; 82607; 82728; 82746; 83036; 83540; 85025; 85045; 99212

== ENCOUNTER 2025-09-19 14:04 | Outpatient (AMB) | payer OTHER, SELFPAY ==
--- OUTSIDE RECORDS SUMMARY | 2024-10-15 05:30 | XMS_ITS ---
Author Organization [facility] Address [address] [place] [id number] Care Team Providers Care Riprap Placing Supervisor Name Role Phone Navid Esposito MD Primary Care Provider Unavail able Cecily Woods Unavailable [phone] Maile Puckett Unavailable [phone] Encounters Encounter Location Date Provider Diagnosis [address] [address] 10/15/2024 Maile Puckett Plan Of Treatment No Information Progress Notes * Peggy FOXoDOB:[birth year] (80 yo M)Acc No.[id number]:10/15/2024 Progress Notes Patient: Peri GODOY Micah Provider: Jayesh Puckett DPM :1945 A ge:79 Y S ex:Male Date:10/15/2024 Address:[address] [place] [address] [id number] Pcp:Navid Esposito MD Subjective: * Chief Complaints: * * Medical History: Objective: * Vitals: Assessment: Plan: * Treatment: * Images: * The named appointment provid er may or may not be the originator of this progress note, and it is not deemed complete until electronically signed by the appointment provider. Sign off status: Pending * Provider: Jayesh Puckett DPM Date: 0 10/15/2024 Generated for Prem parada/Simona/eTransmitting on: 11/20/2024 06:18 PM EST
--- OUTSIDE RECORDS SUMMARY | 2025-02-19 04:30 | XMS_ITS ---
Author Organization [facility] Address [address] [place] [address] Care Team Providers Care Material Expeditor Name Role Phone Navid Esposito MD Primary Care Provider Unavail able Cecily Woods Unavailable [phone] Olmos Encounters Encounter Location Date Provider Diagnosis [facility] [address] [place] [address] 02/19/2025 Cecily Woods Plan Of Treatment No Information Progress Notes * Peggy FOXoDOB:[birth year] (80 yo M)Acc No.[id number]:02/19/2025 Progress Note Patient: Micah GIRON Provider: Andrew Woods DPM :1945 A ge:80 Y S ex:Male Date:02/19/2025 Address:[address] [place] [address], [address], [facility] Pcp:Navid Esposito MD Subjective: * Chief Complaints: * [address] Olmos. * Medical History: Objective: * Vitals: Assessment: Plan: * Treatment: * Images: * The named appointment provid er may or may not be the originator of this progress note, and it is not deemed complete until electronically signed by the appointment provider. Sign off status: Pending * Provider: Andrew Woods DPM Date: 0 02/19/2025 Generated for Kerryi karma/Simona/eTransmitting on: 11/20/2024 06:18 PM EST
--- OUTSIDE RECORDS SUMMARY | 2025-04-29 06:15 | XMS_ITS ---
[facility] Address [address] [place] [address] Care Team Providers Care Residential Service Technician Name Role Phone Navid Esposito MD Primary Care Provider Unavail able Cecily Woods Unavailable [phone] Allergies Allergen (clinical drug ingredient) Drug/Non Drug Allergy documented on EMR Reaction Allergy Type Onset Date Status All Narcotics (uncoded) Unknown Allergy Active codeine Codeine Unknown Drug Allergy Active morphine Morphine Unknown Drug Allergy Active Medications Medication SIG (Take, Route, Frequency, Duration) Notes Start Date End Date Status Atorvastatin Calcium 10 MG TOME ALTAGRACIA TABL ETA POR V A ORAL A DIARIO Oral; Duration: 90 Days Active Extra Depth Orthopedic Shoes (1 Pair) with Customized Heat Molded Multidensity Innersoles (3 Pair) as directed Dx: NIDDM (E11.9), Hammertoe Foot Deformity (M20.41,M20.42), Preulcerative Skin Lesion(s) (L85.1) 11/27/2024 Active Sertraline HCl 50 MG Oral; Duration: 65 Days Active Lisinopril 20 MG TAKE 1 TABLET BY ALISHA TH DAILY FOR 90 DAYS Oral; Duration: 90 Days Active Omeprazole 40 MG Oral; Duration: 90 Days Active Gabapentin 100 MG PLEASE SEE ATTACHED FOR DETAILED DIRECTIONS Oral; Duration: 15 Days Active Encounters Encounter Location Date Provider [facility] [address] 04/29/2025 Cecily Woods Plan Of Treatment No Information Progress Notes * Nick FOXOB:[birth year] (80 yo M)Acc No.[id number]:04/29/2025 Progress Note Patient: Micah GIRON Provider: Andrew Woods DPM :1945 A ge:80 Y S ex:Male Date:04/29/2025 Address:[address] [place] [address] Pcp:Navid Esposito MD Subjective: * Chief Complaints: * * Medical History: A nxiety, Depression, Diabetic, High Blood Pressure, Reflux ( GERD), Joint implants/screws. * Medications: T aking Lisinopril 20 MG Tablet TAKE 1 TABLET BY MOUTH DAILY FOR 90 DAYS Oral , Taking Sertraline HCl 50 MG Tablet Oral , Taking Omeprazole 40 MG Capsule Delayed Release Oral , Taking Gabapentin 100 MG Capsule PLEASE SEE ATTACHED FOR DETAILED DIRECTIONS Oral , Taking Atorvastatin Calcium 10 MG Tablet TOME ALTAGRACIA TABLETA POR V A ORAL A DIARIO Oral , Taking Extra Depth Orthopedic Shoes (1 Pair) with Customized Heat Molded Multidensity Innersoles (3 Pair) as directed Dx: NIDDM (E11.9), Hammertoe Foot Deformity (M20.41,M20.42), Preulcerative Skin Lesion(s) (L85.1) * Allergies: M orphine, Codeine, All Narcotics. Objective: * Vitals: Assessment: Plan: * Treatment: * Images: * The named appointment provid er may or may not be the originator of this progress note, and it is not deemed complete until electronically signed by the appointment provider. Sign off status: Pending * Provider: Andrew Woods DPM Date: 0 04/29/2025 Generated for Prem parada/Simona/Caraitting on: 11/20/2024 06:18 PM EST
--- NOTE | 2025-09-19 14:06 | A.OFFVIS_ITS ---
Vital Signs 09/19/25 14:07 Height 5 ft 2 in Weight 148 lb BMI 27.1 BP 128/78 Blood Pressure Location Rt brachial Position Sitting Pulse 84 Pulse Source Pulse Oximeter Pulse Oximetry (%) 98 Oxygen Delivery Method Room Air Intake Visit Reasons: f/u Intake Note: Patient presents follow up Cognitive/Sleep. MRI's in chart. Daughter states no changes. Has good/bad days. Developmental Training Counselor Required: Yes Developmental Training Counselor Language: Laundry Folder Services: Developmental Training Counselor Offered & Declined Developmental Training Counselor Name: Kathie New Information Interpreted: non-clinical & clinical Accompanied by: Daughter Allergies Benzodiazepines Allergy (Mild, Verified 09/19/25 14:11) Unknown narcotics Allergy (Severe, Uncoded 05/28/25 11:41) memory loss HPI Comments Details: Micah is a very pleasant 79-year-old Turkish-speaking male patient of Dr. Fields who was accompanied by his daughter today for a f/u of cognitive decline with forgetfulness. Interim history: ED visit in Nov 06, 2024, AMS due to fall and bumped his head in the bathroom, he denied loc, and had a full work up at the ED. He was altered and saying unrecognizable words, he also had a UTI, and felt dizzy due to Gabapentin. He denies V/A Hallucinations since the last episode of Gabapentin which caused him to be altered and fall. He reports a longstanding history of sleep disorder and finds it difficult to obtain adequate sleep as he was getting up around 5-10x a night, now improved. He has decreased consumption of fluids at night, now consuming 1-2 cups of decaffeinated coffee daily. He continues to have excessive daytime fatigue and sleep patterns are reversed, sleeps more through the day, and the family keeps him busy during the day, so he does not sleep during day. He started taking magnesium, stopped melatonin due to vivid dreams.He goes to bed at 10pm and gets up at 1130pm, then goes to the bathroom, he sleeps for another 3 hours then gets up for the day. His memory at baseline is more forgetful, confused with direction and needs repetion with redirection. Has word finding and mood seems stable per daughter it has improved since increasing the citalopram to 50mg qam. Diet is improved. He goes for a walk daily with his , and started to see some improvement with PT 2x a week, and will start OT next week. He denies constipation, is able to complete all his ADLS with supervision as the TRACTOR CRANE ENGINEER comes to oversee his care multiple times a week. [facility] Medical History History of anemia GERD (gastroesophageal reflux disease) Vitamin D deficiency Hypertension Diabetes mellitus Surgical History Hx of endoscopy Hx of colonoscopy Hx of left knee surgery Family History Father Colon cancer Brother No problems noted. Brother No problems noted. Sister No problems noted. Sister Liver cancer Son No problems noted. Daughter No problems noted. Social History Household Members: Spouse Housing: Apartment Are you a primary career development facilitator to a significant other at home: No Do you presently have visiting nurse or other home services: No Alcohol intake: never Patient Tobacco Use Status: Never used Tobacco e-Cigarette/Vaping Use: Never Used Second Hand Smoke Exposure: No service: No Current occupational status: retired Current occupational exposures/hazards: No Cognitive needs: No Hearing needs: No Vision needs: No Physical Exam Vital Signs: Last Vital Signs Pulse 84 09/19/25 14:07 BP 128/78 09/19/25 14:07 Pulse Ox 98 09/19/25 14:07 Oxygen Delivery Method Room Air 09/19/25 14:07 BMI result Body Mass Index 27.1 Const General: no acute distress Orientation/consciousness: patient oriented x3 HEENT Other: Mallampati stage 4 Resp Effort & Inspection: normal respiratory effort and able to speak in complete sentences Auscultation: clear to auscultation bilaterally Cardio Rate: regular rate Rhythm: regular rhythm Neuro Other: Tremor oral facial - lingual - Upper extremity tremor bilateral upper ext. FFM abnormal stooped posture gait, shaky takes small steps close to the feet, does not lift his feet. near falls, balance and gait General: patient oriented x3 Cranial nerves: Yes Ability to bilaterally rotate head present and Yes Ability to bilaterally elevate shoulders present Gait exam (Neuro): Assistive device used (cane used to ambulate) Motor exam (neuro): 5/5 motor strength present throughout Deep tendon reflexes (DTR's): Right triceps reflex intensity grade: 2+, Left triceps reflex intensity grade: 2+, Rt Biceps (C5, C6): 2+, Left biceps reflex intensity grade: 2+, Right brachioradialis reflex intensity grade: 2+, Left brachioradialis reflex intensity grade: 2+, Right patellar reflex intensity grade: 2+ and Left patellar reflex intensity grade: 2+ Psych Other: confused on FFM exam, Mental Status: other Speech and movement: Clear speech present and Slowed movement present (Neuro) Attitude: cooperative Results Reviewed Results Reviewed: US Retroperitoneal normal PSG is normal Labs reviewed continues to be anemic. Assessment & Plan Assessment & Plan (1) Excessive daytime sleepiness: Comment: sleep hygiene reviewed Code(s): G47.19 - Other hypersomnia Category: Medical (2) Sleep disorder, unspecified: Comment: Snoring, sleep maintenance difficulties, sleep initiation difficulties, REM type sleep behaviors, excessive daytime sleepiness. Code(s): G47.9 - Sleep disorder, unspecified Category: Medical (3) Cognitive decline: Comment: mmse 18 will try memantine 7mg po for 2weeks and titrate slowly. Code(s): R41.89 - Other symptoms and signs involving cognitive functions and awareness Category: Medical (4) Muscle strain: Code(s): T14.8XXA - Other injury of unspecified body region, initial encounter Category: Medical (5) Lower extremity weakness: Code(s): R29.898 - Other symptoms and signs involving the musculoskeletal system Category: Medical Qualifiers: Laterality: bilateral Qualified Code(s): R29.898 - Other symptoms and signs involving the musculoskeletal system (6) Falls frequently: Comment: pt continue Code(s): R29.6 - Repeated falls Category: Medical (7) Balance disorder: Code(s): R26.89 - Other abnormalities of gait and mobility Category: Medical (8) Forgetfulness: Code(s): R68.89 - Other general symptoms and signs Category: Medical Plan Sleep disturbances and Insomnia :Home Sleep Study was normal. Sleep Hygiene provided, Limit caffeine 6 hours prior to bed, no fluids 2 hours prior to bed, f/u with urology for nocturia. Cognitive decline MMSE is 18 today? MRI with [facility] / LBD / Alzeihmers Dementia, daughter declines. (supportive care) Will start 7mg memantine po daily at bedtime for 2 weeks, then titrate up to 14mg po for 2weeks, and monitor for side effects, then continue to 21mg po daily for 2 weeks and monitor until therapeutic at 28mg po qpm. Patient discontinued Gabapentin d/t side effects of drugs sedation and falls. Continue Metformin 850mg PO BID as directed by PCP Continue Citalopram 50mg PO daily for depressed, mood. Physical Therapy for gait and balance strenght training. TBD location by pt. and daughter. OT for difficulty with buttons and shirts, fine motor functions feeding difficulties, shaking tremors, dropping food off spoon. Continue TRACTOR CRANE ENGINEER 1x day for 1 hour, 6-7am then 9am to 1130pm. TRACTOR CRANE ENGINEER at night 1am to 3am for medications. Orders: Orders PT Evaluation and Treatment 09/19/25 R26.89 - Other abnormalities of gait and mobility, R29.6 - Repeated falls OT Evaluation and Treatment Today R25.1 - Tremor, unspecified, R48.2 - Apraxia Medications: New mecobalamin (vitamin B12) place tablet under tongue and allow to dissolve for at least30 secs before swallowing 1,000 mcg sublingual BEDTIME 90 tabs 3RF 3 months magnesium oxide 400 mg PO DAILY 90 tabs 3RF leg cramps 3 months R29.898 - Other symptoms and signs involving the musculoskeletal system, T14.8XXA - Other injury of unspecified body region, initial encounter memantine Start this medication at 7mg PO daily for one week, then titrate up to the next dose of 14mg PO daily for one week, then titrate up to 21mg PO daily for one week, then titrate up to 28mg PO daily for ongoing maintenance dose of 28mg PO daily. 7 mg PO DAILY 7 ea 0RF Refilled cholecalciferol (vitamin D3) (Vitamin D3) 25 mcg PO DAILY 90 caps 3RF 90 days Patient Instructions: Please complete the following fasting labs to rule out deficiencies. CBC/CMP/ B12/ Vit D/ TSH/ Homocysteine and MMA/ Ferritin. Charlo 3 fatty acids, heart healthy diet, walking and socially engage in activities daily to include puzzles and word searches, reading stories if able and as tolerable. Avoid long naps during the daytime increase night time sleep routine, with gentle yoga or diffusion of essential oils, soft music, chamomile tea if tolerable. Coding Level of Care Code Est Pt Level 4 (58501) Diagnoses Excessive daytime sleepiness G47.19 Sleep disorder, unspecified G47.9 Cognitive decline R41.89 Muscle strain T14.8XXA Weakness of both lower extremities R29.898 Laterality: bilateral Falls frequently R29.6 Balance disorder R26.89 Forgetfulness R68.89
[2025-09-19 14:07] VITALS: BP 128/78; PULSE 84; O2SAT 98; BMI 27.1
--- OUTSIDE RECORDS SUMMARY | 2025-09-19 18:19 | XMS_ITS | Patient Health Record ---
Author Organization [facility] Address [address] [place] [address] Care Team Providers Care Astronomy Teacher Name Role Phone Vaibhav GARCES, Navid Primary Care Provider Unavail able Cecily Woods Unavailable [phone] PuckettMaile Unavailable [phone] Allergies Allergen (clinical drug ingredient) Drug/Non Drug [...] Problem Acquired hammer toe of right foot (272003553336126 5) Other hammer toe(s) (acquired), right foot (M20.41) Active confirmed Problem Acquired hammer toe of left foot (024096445591511 3) Other hammer toe(s) (acquired), left foot (M20.42) Active confirmed Problem Type II diabetes mellitus without complication (409714044) Type 2 diabetes mellitus without complication (E11.9) Active confirmed Vital Signs Blood pressure diastolic 80 mm Hg 11/27/2024 Height 5ft6in in 11/27/2024 Blood pressure systolic 123 mm Hg 11/27/2024 Weight 156 lbs 11/27/2024 BMI 25.18 kg/m2 11/27/2024 Encounters Encounter Location Date [facility] [address] 11/27/2024 Cecily Woods Tinea unguium B35.1 ; Other hammer toe(s) (acquired), right foot M20.41 ; Pain in right toe(s) M79.674 ; Pain in left toe(s) M79.675 ; Type 2 diabetes mellitus without complication E11.9 and Other hammer toe(s) (acquired), left foot M20.[address] [facility] [address] 10/09/2024 Maile Puckett [facility] [address] 04/29/2025 Cecily Woods Assessments Encounter Date Diagnosis [...] Insured Coverage Start Date Coverage End Date [facility] [employer] Claims [address] [place] [id number] Micah Mitchell Self - patient is the insured Medical (General) History Medical History History ICD Code Anxiety Depression Diabetic High Blood Pressure Reflux ( GERD) Joint implants/screws Surgical History Surgery Date(Month/Year) cataract surgery
--- OUTSIDE RECORDS SUMMARY | 2025-09-19 18:19 | XMS_ITS | Patient Health Record ---
Author Organization [facility] Address [address] [place] [address] Care Team Providers Care Etl Informatica Architect Name Role Phone Ignacio Abdul Jr [phone] Reason For Referral No Information Plan Of Treatment No Information
== END 2025-09-19 15:39 | disposition home or self-care (01) ==
LOC: HO.HSMS 14:04
PROVIDERS: PCP Family Medicine; Visit Provider Physician Assistant Medical
DX: G47.19 Other hypersomnia (principal); G47.9 Sleep disorder, unspecified; R41.89 Other symptoms and signs involving cognitive functions and awareness; T14.8XXA Other injury of unspecified body region, initial encounter; R29.898 Other symptoms and signs involving the musculoskeletal system; R29.6 Repeated falls; R26.89 Other abnormalities of gait and mobility; R68.89 Other general symptoms and signs
CPT/HCPCS: 99214

== ENCOUNTER → 2025-09-19 14:04 | Outpatient (BNVA) | payer OTHER, SELFPAY | PROVIDERS: PCP Family Medicine; Visit Provider Physician Assistant Medical | DX: R41.81 Age-related cognitive decline (principal); G47.19 Other hypersomnia; G47.9 Sleep disorder, unspecified; R35.1 Nocturia; R29.6 Repeated falls; R26.89 Other abnormalities of gait and mobility; R68.89 Other general symptoms and signs | CPT/HCPCS: 99212 ==